=== PATIENT | female | born 1970 | race Caucasian/White ===

== ENCOUNTER 2016-03-19 12:20 | Observation (INO) | payer OTHER ==
[2016-03-19 13:11] LABS: Mean Cell Volume 89.2 fl (78-100); Mean Platelet Volume 9.7 fl (6-9.5); Platelet Count 415 K/mm3 (150-450); Red Blood Count 4.93 M/mm3 (4.1-5.4); White Blood Count 16.3 K/mm3 (4.0-10.5)
[2016-03-19] MEDS: DILAUDID 2 MG INJECTION IV PRN ×3 (13:23→23:34)
[2016-03-19] MEDS: Dextrose 5% -0.45 NaCl 1000 ML 1,000 ML IV SCH ×2 (13:23→23:22)
[2016-03-19] MEDS: Zofran 4 MG/2 ML VIAL IV PRN ×2 (13:26→21:29)
[2016-03-19] MEDS: PROTONIX 40 MG IV IV SCH (13:30)
[2016-03-19 13:59] LABS: ALBUMIN 3.7 g/dL (3.4-5.0); ALKALINE PHOSPHATASE 72 U/L (46-116); ANION GAP 13.4 MEQ/L (5-15); BILIRUBIN,TOTAL 0.2 mg/dL (0.2-1.0); BLOOD UREA NITROGEN 12 mg/dL (9-20); CHLORIDE 103 mEq/L (98-107); Carbon Dioxide 24.4 mEq/L (21-32); Glucose 125 MG/DL (70-110); Potassium 3.8 mEq/L (3.5-5.1); SGOT/AST 18 U/L (15-37); SGPT/ALT 31 U/L (12-78); SODIUM 137 mEq/L (136-145); Total Protein 7.6 gm/dL (6.4-8.2)
--- NOTE | 2016-03-19 14:14 | XRAY ---
Indication: Abdominal pain. Nausea. Multiple contiguous axial images obtained through the abdomen and pelvis without contrast as ordered. Comparison: April 08, 2015 Lung bases clear with minimal bibasilar dependent atelectasis. Heart is not enlarged. Noncontrasted stomach and bowel loops appear nonobstructed. Again previous reported appendectomy, cholecystectomy, and hysterectomy. Right kidney again appears small and scarred. No free fluid/air. Remaining liver, pancreas, spleen, adrenal glands, kidneys, ureters, and bladder appear unremarkable for noncontrast exam. There remains stable minimal aortoiliac calcifications without AAA. Osseous structures intact. Impression: Stable small/scarred right kidney. No new or acute intra-abdominal/pelvic abnormalities on this noncontrast exam. CTDI is 19.15
[2016-03-19 17:11] LABS: Bacteria MODERATE /HPF (NEGATIVE); COMPLETE URINE MICROSCOPIC? YES; Collection Type VOID; Epithelial Cells FEW /HPF (FEW); WBC 0-2 /HPF (0-5)
[2016-03-19] MEDS: KEPPRA 500 MG PO SCH (21:29)
[2016-03-20] MEDS: Zofran 4 MG/2 ML VIAL IV PRN ×3 (04:19→15:38)
[2016-03-20] MEDS: DILAUDID 2 MG INJECTION IV PRN ×4 (04:29→17:32)
[2016-03-20] MEDS: KEPPRA 500 MG PO SCH (09:19)
[2016-03-20] MEDS: Dextrose 5% -0.45 NaCl 1000 ML 1,000 ML IV SCH ×2 (09:25→17:36)
[2016-03-20] MEDS: KEFLEX 500 MG PO SCH ×2 (11:03→15:38)
[2016-03-20] MEDS: PROTONIX 40 MG IV IV SCH (12:48)
[2016-03-20 16:19] VITALS: BP 124/59; PULSE 58; O2SAT 97
--- NOTE | 2016-03-23 11:40 | SSS ---
DISCHARGE DIAGNOSES: 1) LOWER ABDOMINAL PAIN, NEARLY RESOLVED. 2) URINARY TRACT INFECTION. 3) HISTORY OF SEIZURE DISORDER. 4) CHRONIC PAIN SYNDROME. HOSPITAL COURSE: Dara Joyce is a 45 year-old woman with past medical history of seizure disorder, chronic pain syndrome and prior history of urinary tract infection. She was recently seen in the office for right flank pain and was diagnosed to have urinary tract infection. She underwent additional work up including kidney ultrasound which was negative. She was treated for urinary tract infection. She completed antibiotic as directed. Subsequently she was seen for follow up in the office on 03/19/2016 at which time she had complained of lower abdominal pain. There was no history of trauma or usual activity prior to onset of lower abdominal pain. Also there were no other precipitating factors. The pain was associated with nausea. She was admitted for further work up and management of the same. After admission she was placed on IV fluids, PRN analgesics and antiemetic. Lab work up on admission was notable for white blood cell count of 16.3. CMP was unremarkable except glucose of 125. Serum test was negative. UA did showed few epithelial cells, moderate bacteria, small red blood cells, negative white blood cell. She underwent CT scan of abdomen and pelvis which showed stable small scarred right kidney. No new or acute intra-abdominal or pelvic abnormalities on noncontrast exam. During her further course her abdominal pain improved. Her diet was advanced and she tolerated that well. The rest of her course was essentially more or less unremarkable. At the time of my evaluation this evening she was alert, awake, and comfortable. Her lower abdominal pain had significant improved, nearly resolved. She ambulated without difficulty. She overall felt better and was wishing to go home. PHYSICAL EXAMINATION: VITAL SIGNS: Blood pressure 124/59, heart rate 58, respiratory rate 18, temperature 97.9F. Oxygen saturation 97%. HEENT: Normocephalic. No pallor or icterus is noted. NECK: No JVD is present. CVS: S1, S2 present. RESPIRATORY: Breath sounds are bilaterally diminished and clear to auscultation. ABDOMEN: Soft, very minimal tenderness in lower abdominal area significantly improved from yesterday. NEURO: She is alert, oriented x3. EXTREMITIES: No edema on bilateral lower extremities. LABORATORY DATA AND TESTS: There were no new labs today. Medications were reviewed. ASSESSMENT: As outlined in discharge diagnoses. PLAN: The patient was admitted with severe abdominal pain was diagnosed to have urinary tract infection. The rest of the work up was essentially unremarkable except mildly elevated white blood cell count. She had remained afebrile, hemodynamically stable. Eventually her symptoms of abdominal pain had nearly resolved. She tolerated diet well. She was otherwise feeling well and wishing to go home. She was started on treatment with p.o. Keflex for urinary tract infection. She ambulated with stable oxygen saturations. She is overall feeling better and wishing to go home. She is being discharged in stable condition. Please refer to her discharge medication list from 03/20/2016 for details of medications list. Also she will be continued on home medications. Prescription for Keflex for six days was called into her pharmacy. She was advised to start that as directed. She was advised to drink ample p.o. fluid. She is to continue PRN Whitt per her pain management doctor. The patient does have an appointment scheduled with urologist as an outpatient in the next couple of weeks. She is advised to follow up with that. Also I have advised her to obtain CMP and CBC in the next four to five days in our office. She can follow up with us in ten days. Compliance with diet and medications is stressed. Complete cessation of smoking was stressed. The patient is advised to return to the Emergency Room [facility] if any new signs and symptoms or reappearance of previous signs and symptoms are noted. Please refer to the patient's chart, labs, diagnostic work up results and consult notes for details. Please refer to discharge medication list from 03/20/2016 for details of medications on discharge. The patient's clinical condition, work-up results and plan of management including discharge plan as noted above discussed with her. She seems to be in understanding and agreement. Discussed with patient's nurse.
== END 2016-03-20 19:15 | disposition home or self-care (01) ==
LOC: MED SURG 12:29
PROVIDERS: ADMIT General Practice; ATTEND General Practice
DX: R10.30 Lower abdominal pain, unspecified (principal); N39.0 Urinary tract infection, site not specified; G40.909 Epilepsy, unspecified, not intractable, without status epilepticus; G89.4 Chronic pain syndrome
CPT/HCPCS: 36415; 74176; 80053; 81000; 84703; 85027; G0378; J1170; J2405

== ENCOUNTER 2017-12-26 16:15 | Observation (INO) | payer OTHER ==
[2017-12-26] MEDS ORDERED: Zithromax 500 MG/ 250 ML NaCl Premix 500 MG/250 ML IVPB IV SCH (16:41)
[2017-12-26] MEDS ORDERED: PROVENTIL 2.5 MG/3 ML NEB IH PRN (16:59)
[2017-12-26] MEDS ORDERED: TYLENOL 325 MG PO PRN (17:06)
[2017-12-26] MEDS: ROCEPHIN 1 Gm-D5w 50 ml Bag** 1 G/50 ML IVPB IV SCH (17:08)
[2017-12-26] MEDS: Sodium Chloride 0.9% 1000 ML 1,000 ML IV SCH (17:08)
[2017-12-26] MEDS: Robitussin AC Syrup Unit Dose Cup PO PRN (17:08)
[2017-12-26 17:23] LABS: Hematocrit 46.9 % (35-47); Hemoglobin 16.3 gm/dl (12.0-16.0); Mean Cell Volume 87.7 fl (78-100); Mean Corpuscular Hgb Concent. 34.8 g/dl (32-36); Mean Platelet Volume 10.3 fl (6-9.5); Platelet Count 451 K/mm3 (150-450); Red Blood Count 5.35 M/mm3 (4.1-5.4); Red Cell Distribution Width 14.8 % (11.5-14.0); White Blood Count 13.1 K/mm3 (4.0-10.5)
[2017-12-26] MEDS: solu-MEDROL 40 MG IV SCH ×2 (17:28→23:06)
[2017-12-26] MEDS ORDERED: NEURONTIN 300 MG PO PRN (17:31)
[2017-12-26] MEDS ORDERED: MOTRIN 200 MG PO PRN (17:31)
[2017-12-26] MEDS ORDERED: Norco 10/325 MG Tablet PO PRN (17:31)
[2017-12-26 17:32] LABS: Mean Corpuscular Hemoglobin 30.4 pg (26-32)
[2017-12-26] MEDS ORDERED: Pepcid 20 MG PO PRN (17:36)
[2017-12-26 17:38] LABS: ANION GAP 13.4 MEQ/L (5-15); BLOOD UREA NITROGEN 13 mg/dL (7-17); CHLORIDE 103 mmol/L (98-107); Calcium 9.9 mg/dL (8.4-10.2); Carbon Dioxide 26 mmol/L (22-30); Creatinine 1 0.75 mg/dL (0.52-1.04); Glucose 99 mg/dL (74-106); Potassium 3.9 mmol/L (3.5-5.1); SODIUM 139 mmol/L (137-145)
[2017-12-26] MEDS ORDERED: Zofran 4 MG/2 ML VIAL IV PRN (18:28)
[2017-12-26 18:30] LABS: Lymphocytes 51 % (24-44); Monocyte 4 % (0.0-12.0); Neutrophils 45 % (36.0-66.0); Platelet Estimate NORMAL (NORMAL); Total Cells Counted 100
[2017-12-26 18:36] LABS: INFLUENZA A NEGATIVE (NEGATIVE); INFLUENZA B NEGATIVE (NEGATIVE); RESPIRATORY SYNCTIAL VIRUS NEGATIVE (Negative)
[2017-12-26] MEDS: DUONEB 0.5-3 MG/3 ml Neb IH SCH (19:26)
--- NOTE | 2017-12-26 20:16 | XRAY ---
Exam: Two-view chest from 12/26/2017. Comparison: AP portable chest film from 04/10/2015. Indication: 47-year-old female with shortness of breath and cough with congestion 10 days, becoming progressively worse. History of smoking. Findings: Upright PA and lateral chest films are submitted for evaluation. The heart size and contour are normal. The richard and mediastinal structures appear intact. The lungs are adequately expanded. No air space infiltrates, vascular congestion, pneumothorax, or pleural effusion is seen. No abnormal soft tissue lung nodularity is seen. The visualized bones appear unremarkable. Surgical clips are seen within the right upper quadrant consistent with prior cholecystectomy. Impression: 1. No air space infiltrates to suggest pneumonia or other acute cardiopulmonary disease is seen. The findings appear similar to 04/10/2015.
[2017-12-26] MEDS: KEPPRA 500 MG PO SCH (22:35)
[2017-12-27] MEDS: Robitussin AC Syrup Unit Dose Cup PO PRN ×2 (00:28→07:34)
[2017-12-27] MEDS ORDERED: TORAdol 30 mg Injection IV PRN (01:13)
[2017-12-27] MEDS: Sodium Chloride 0.9% 1000 ML 1,000 ML IV SCH (02:31)
[2017-12-27] MEDS: DUONEB 0.5-3 MG/3 ml Neb IH SCH ×2 (06:24→10:22)
[2017-12-27] MEDS: KEPPRA 500 MG PO SCH (10:10)
[2017-12-27] MEDS: ROCEPHIN 1 Gm-D5w 50 ml Bag** 1 G/50 ML IVPB IV SCH (10:10)
[2017-12-27] MEDS: solu-MEDROL 40 MG IV SCH (10:10)
--- NOTE | 2017-12-27 11:34 | PCM.SSS ---
History of Present Illness - Chief Complaint Chief Complaint: c/o cough and fever with chills History of Present Illness: is a 47 year old female. came to office with c/o fever, shortness of breath and cough for 2 days - Review of Systems Constitutional: No Fever, No Chills Eyes: No Symptoms Ears, Nose, & Throat: No Symptoms Respiratory: No Cough, No Short Of Breath Cardiac: No Chest Pain, No Edema, No Syncope Abdominal/Gastrointestinal: No Abdominal Pain, No Nausea, No Vomiting, No Diarrhea Genitourinary Symptoms: No Dysuria Musculoskeletal: No Back Pain, No Neck Pain Skin: No Rash Neurological: No Dizziness, No Focal Weakness, No Sensory Changes Psychological: No Symptoms Endocrine: No Symptoms Hematologic/Lymphatic: No Symptoms Immunological/Allergic: No Symptoms Medications & Allergies Home Medications: Home Medication List Levetiracetam [Keppra] 1 tab PO BID 01/30/14 [History Confirmed 12/26/17] Hydrocodone/APAP 10/325 mg [Min[place] 10/325 MG Tablet] 1 tab PO TIDPRN PRN [History Confirmed 12/26/17] Gabapentin 300 mg PO BID PRN PRN 12/26/17 [History Confirmed 12/26/17] Ibuprofen 200 mg [Motrin 200 mg] 200 mg PO Q6H PRN PRN 12/26/17 [History Confirmed 12/26/17] Ranitidine HCl [Zantac] 150 mg PO BID PRN PRN 12/26/17 [History Confirmed ] Cephalexin Mh 500 mg [Keflex 500 mg] 500 mg PO QID #20 capsule 12/27/17 [Rx] Codeine Phosphate/Guaifenesin [Cheratussin AC Syrup] 5 ml PO QID #150 liquid [Rx] Methylprednisolone Packet [Medrol Dosepack] 4 mg PO UD #30 packet [Rx] Allergies/Adverse Reactions: Allergies Allergy/AdvReac Type Severity Reaction Status Date / Time nitrofurantoin Allergy Hives Verified 12/26/17 17:04 [From Macrobid] Sulfa (Sulfonamide Allergy Hives Verified 12/26/17 16:55 Antibiotics) azithromycin [From Zithromax] AdvReac Intermediate Nausea and Verified 12/26/17 18:40 Vomiting naproxen [From Aleve] AdvReac Nausea Verified 12/26/17 17:04 - Past Medical History Past Medical History: Yes Neurological History: Epilepsy, Seizures ENT History: No Pertinent History Cardiac History: No Pertinent History Respiratory History: No Pertinent History Endocrine Medical History: No Pertinent History Musculoskelatal History: No Pertinent History GI Medical History: Gallbladder Disease, Other History: Other Pyscho-Social History: No Pertinent History Reproductive Disorders: Endometriosis 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 RT KIDNEY DYSFUNCTION. H. Pylori - Female History Are you now?: No - Past Surgical History Past Surgical History: Yes Neuro Surgical History: No Pertinent History Cardiac History: No Pertinent History Respiratory Surgery: No Pertinent History GI Surgical History: Appendectomy, Cholecystectomy Female Surgical History: Hysterectomy Other Surgical History: CRANIOTOMY--TUMOR REMOVED. - Social History Smoking Status: Current every day smoker How long have you smoked: 20 Exposure to second hand smoke: No Alcohol: None Drug Use: none - Physical Exam Vital Signs: Vital Signs - 24 hr Temp Pulse Resp BP BP Pulse Ox 12/27/17 10:24 84 20 12/27/17 08:00 18 12/27/17 07:19 98.2 F 77 18 112/56 96 12/27/17 06:27 80 18 96 12/27/17 04:00 97.8 F 90 18 114/59 96 12/27/17 00:00 97.8 F 80 16 96/55 95 12/26/17 23:44 16 12/26/17 22:24 77 18 97 12/26/17 20:00 20 12/26/17 19:35 98 F 76 18 124/57 95 12/26/17 19:29 83 20 97 12/26/17 17:40 94 L 12/26/17 17:21 98.6 F 84 18 135/70 97 12/26/17 16:50 98.6 F 84 18 135/70 General Appearance: no apparent distress, alert Neurologic Exam: alert, oriented x 3, cooperative, normal mood/affect, nml cerebellar function, nml station & gait, sensation nml, No motor deficits Eye Exam: PERRL/EOMI, eyes nml inspection Ears, Nose, Throat Exam: normal ENT inspection, TMs normal, pharynx normal, moist mucous membranes Neck Exam: normal inspection, non-tender, supple, full range of motion Respiratory Exam: diminished breath sounds, wheezing, No respiratory distress Cardiovascular Exam: regular rate/rhythm, normal heart sounds, normal peripheral pulses Gastrointestinal/Abdomen Exam: soft, normal bowel sounds, No tenderness, No mass Back Exam: normal inspection, normal range of motion, No CVA tenderness, No vertebral tenderness Extremity Exam: normal inspection, normal range of motion, pelvis stable Skin Exam: normal color, warm, dry, No rash Lymphatic Exam: No adenopathy Results - Labs Lab/Micro Results: Lab Results-Last 24 Hours 12/26/17 12/26/17 12/26/17 Range/Units 17:16 17:16 17:16 WBC 13.1 H (4.0-10.5) K/mm3 RBC 5.35 (4.1-5.4) M/mm3 Hgb 16.3 H (12.0-16.0) gm/dl Hct 46.9 (35-47) % MCV 87.7 (78-100) fl MCH 30.4 (26-32) pg MCHC 34.8 (32-36) g/dl RDW 14.8 H (11.5-14.0) % Plt Count 451 H (150-450) K/mm3 MPV 10.3 H (6-9.5) fl Absolute Granulocytes 7.20 H (1.4-6.9) Segmented Neutrophils 45 (36.0-66.0) % Lymphocytes (Manual) 51 H (24-44) % Monocytes (Manual) 4 (0.0-12.0) % Platelet Estimate NORMAL (NORMAL) RBC Morphology NORMAL Sodium 139 (137-145) mmol/L Potassium 3.9 (3.5-5.1) mmol/L Chloride 103 (98-107) mmol/L Carbon Dioxide 26 (22-30) mmol/L Anion Gap 13.4 (5-15) MEQ/L BUN 13 (7-17) mg/dL Creatinine 0.75 (0.52-1.04) mg/dL Estimated GFR > 60.0 ML/MIN Glucose 99 (74-106) mg/dL Calcium 9.9 (8.4-10.2) mg/dL Influenza Type A Ag NEGATIVE (NEGATIVE) Influenza Type B Ag NEGATIVE (NEGATIVE) RSV (PCR) NEGATIVE (Negative) - Radiology Impressions Radiology Exams & Impressions: Radiology Procedures Category Date Time Status CHEST 2 VIEWS (PA AND LAT) Stat Exams 12/26/17 16:38 Completed - Other Procedures and Tests Respiratory Therapy 12/26/17 16:59 Peak Expiratory Flow Rate ONCE Respiratory Therapy Assessment DAILY Assessment/Plan (1) Bronchitis, acute Current Visit: Yes Status: Acute Qualifiers: Bronchitis organism: rhinovirus Qualified Code(s): J20.6 - Acute bronchitis due to rhinovirus Code(s): J20.9 - ACUTE BRONCHITIS, UNSPECIFIED Hospital Summary - Hospital Course Hospital Course: Last Vital Signs Temp 98.2 F 12/27/17 07:19 Pulse 84 12/27/17 10:24 Resp 20 12/27/17 10:24 BP 112/56 12/27/17 07:19 Pulse Ox 96 12/27/17 07:19 Allergies nitrofurantoin [From Macrobid] Allergy (Verified 12/26/17 17:04) Hives Sulfa (Sulfonamide Antibiotics) Allergy (Verified 12/26/17 16:55) Hives shortness of breath ,diaphoretic azithromycin [From Zithromax] Adverse Reaction (Intermediate, Verified 12/26/17 18:40) Nausea and Vomiting naproxen [From Aleve] Adverse Reaction (Verified 12/26/17 17:04) Nausea Active Medications Acetaminophen (Tylenol 325 Mg) 650 mg PO Q4H PRN PRN PRN Reason: PAIN AND/OR FEVER Stop: 01/25/18 17:05 Last Admin: 12/26/17 17:34 Dose: 650 mg Hydrocodone Bitart/Acetaminophen ([place] 10/325 Mg Tablet) 1 tab PO TIDPRN PRN PRN Reason: PAIN Stop: 12/31/17 17:30 Last Admin: 12/26/17 20:04 Dose: 1 tab Albuterol Sulfate (Proventil 2.5 Mg/3 Ml Neb) 2.5 mg IH Q2H PRN PRN PRN Reason: SHORTNESS OF BREATH/WHEEZING Stop: 01/25/18 16:58 Last Admin: 12/26/17 22:24 Dose: 2.5 mg Albuterol/Ipratropium (Duoneb 0.5-3 Mg/3 Ml Neb) 3 ml IH QIDRT PENDING SALE TO [facility] Stop: 01/25/18 18:59 Last Admin: 12/27/17 10:22 Dose: 3 ml Famotidine (Pepcid 20 Mg) 20 mg PO BID PRN PRN Stop: 01/25/18 17:35 Last Admin: 12/27/17 04:40 Dose: 20 mg Gabapentin (Neurontin 300 Mg) 300 mg PO BID PRN PRN PRN Reason: PAIN Stop: 01/25/18 17:30 Guaifenesin/Codeine Phosphate (Robitussin Ac Syrup Unit Dose Cup) 5 ml PO Q4H PRN PRN PRN Reason: COUGH Stop: 01/25/18 16:41 Last Admin: 12/27/17 07:34 Dose: 5 ml Ceftriaxone Sodium/Dextrose (Rocephin 1 Gm-D5w 50 Ml Bag) 1 g in 50 mls @ 100 mls/hr IV Q24H10 PENDING SALE TO [facility] Stop: 01/25/18 16:40 Last Admin: 12/27/17 10:10 Dose: 100 mls/hr Sodium Chloride (Sodium Chloride 0.9% 1000 Ml) 1,000 mls @ 100 mls/hr IV .Q10H PENDING SALE TO [facility] Stop: 01/25/18 16:44 Last Admin: 12/27/17 02:31 Dose: 100 mls/hr Ketorolac Tromethamine (Toradol 30 Mg Injection) 60 mg IV Q8H PRN PRN PRN Reason: HEADACHE Stop: 01/01/18 01:12 Last Admin: 12/27/17 01:20 Dose: 60 mg Levetiracetam (Keppra 500 Mg ) 500 mg PO BID PENDING SALE TO [facility] Stop: 01/25/18 21:59 Last Admin: 12/27/17 10:10 Dose: 500 mg Methylprednisolone Sodium Succinate (Solu-Medrol 40 Mg) 40 mg IV BID PENDING SALE TO [facility] Stop: 01/25/18 16:44 Last Admin: 12/27/17 10:10 Dose: 40 mg Ondansetron HCl (Zofran 4 Mg/2 Ml Vial) 4 mg IV Q4H PRN PRN PRN Reason: NAUSEA/VOMITING Stop: 01/25/18 18:27 Last Admin: 12/26/17 18:32 Dose: 4 mg Intake & Output 12/26/17 12/27/17 11:59 11:59 Intake Total 2350 Output Total 800 Balance 1550 Weight 72.4 kg Orders 12/26/17 16:37 Bedrest with BRP/BSC ROUTINE Code Status Order ROUTINE Place in Observation ROUTINE Vital Signs Q4H 12/26/17 16:38 IV Insertion ROUTINE Implement Pneumonia Pathway ROUTINE 12/26/17 16:41 Ceftriaxone 1 GM/50 ML PREMIX* [ROCEPHIN 1 Gm-D5w 50 ml Bag] 1 g in 50 ml IV Q24H10 12/26/17 16:42 Guaifenesin/Codeine 5 ml [Robitussin AC Syrup Unit Dose Cup] 5 ml PO Q4H PRN PRN 12/26/17 16:45 Methylprednisolone Sod Suc 40M [solu-MEDROL 40 MG] 40 mg IV BID NaCl 0.9% 1000 ml [Sodium Chloride 0.9% 1000 ML] 1,000 ml IV 100 mls/hr 12/26/17 16:59 Albuterol 2.5 mg/3 ml Neb [Proventil 2.5 mg/3 ml Neb] 2.5 mg IH Q2H PRN PRN Peak Expiratory Flow Rate ONCE Pulse Oximetry .spot check Respiratory Therapy Assessment DAILY 12/26/17 17:06 Acetaminophen 325 mg [Tylenol 325 mg] 650 mg PO Q4H PRN PRN 12/26/17 17:16 BLOOD CULTURE Stat 12/26/17 17:31 Gabapentin 300 mg [Neurontin 300 mg] 300 mg PO BID PRN PRN Hydrocodone/APAP 10/325 mg [Min[place] 10/325 MG Tablet] 1 tab PO TIDPRN PRN 12/26/17 17:36 Famotidine 20 mg [Pepcid 20 MG] 20 mg PO BID PRN PRN 12/26/17 18:28 Ondansetron HCl 4 mg/2 ml [Zofran 4 MG/2 ML VIAL] 4 mg IV Q4H PRN PRN 12/26/17 19:00 Albuterol/Ipratropium 3ml Neb* [DUONEB 0.5-3 MG/3 ml Neb] 3 ml IH QIDRT 12/26/17 22:00 Levetiracetam [Keppra 500 mg ] 500 mg PO BID 12/26/17 Dinner Regular Diet 12/27/17 01:13 KETOROLAC trometh 30 mg Inj [TORAdol 30 mg Injection] 60 mg IV Q8H PRN PRN Lab Tests 12/26/17 12/26/17 12/26/17 17:16 17:16 17:16 WBC 13.1 H RBC 5.35 Hgb 16.3 H Hct 46.9 MCV 87.7 MCH 30.4 MCHC 34.8 RDW 14.8 H Plt Count 451 H MPV 10.3 H Absolute Granulocytes 7.20 H Segmented Neutrophils 45 Lymphocytes (Manual) 51 H Monocytes (Manual) 4 Platelet Estimate NORMAL RBC Morphology NORMAL Sodium 139 Potassium 3.9 Chloride 103 Carbon Dioxide 26 Anion Gap 13.4 BUN 13 Creatinine 0.75 Estimated GFR > 60.0 Glucose 99 Calcium 9.9 Influenza Type A Ag NEGATIVE Influenza Type B Ag NEGATIVE RSV (PCR) NEGATIVE - Vitals & Intake/Output Vital Signs: Vital Signs Temperature 98.2 F 12/27/17 07:19 Pulse Rate 84 12/27/17 10:24 Respiratory Rate 20 12/27/17 10:24 Blood Pressure 112/56 12/27/17 07:19 O2 Sat by Pulse Oximetry 96 12/27/17 07:19 Intake & Output: Intake & Output 12/24/17 12/25/17 12/26/17 12/27/17 11:59 11:59 11:59 11:59 Intake Total 2350 Output Total 800 Balance 1550 Weight 72.4 kg - Lab Result Diagrams: 12/26/17 17:16 12/26/17 17:16 Lab Results-Last 24 Hrs: Lab Results-Last 24 Hours 12/26/17 12/26/17 12/26/17 Range/Units 17:16 17:16 17:16 WBC 13.1 H (4.0-10.5) K/mm3 RBC 5.35 (4.1-5.4) M/mm3 Hgb 16.3 H (12.0-16.0) gm/dl Hct 46.9 (35-47) % MCV 87.7 (78-100) fl MCH 30.4 (26-32) pg MCHC 34.8 (32-36) g/dl RDW 14.8 H (11.5-14.0) % Plt Count 451 H (150-450) K/mm3 MPV 10.3 H (6-9.5) fl Absolute Granulocytes 7.20 H (1.4-6.9) Segmented Neutrophils 45 (36.0-66.0) % Lymphocytes (Manual) 51 H (24-44) % Monocytes (Manual) 4 (0.0-12.0) % Platelet Estimate NORMAL (NORMAL) RBC Morphology NORMAL Sodium 139 (137-145) mmol/L Potassium 3.9 (3.5-5.1) mmol/L Chloride 103 (98-107) mmol/L Carbon Dioxide 26 (22-30) mmol/L Anion Gap 13.4 (5-15) MEQ/L BUN 13 (7-17) mg/dL Creatinine 0.75 (0.52-1.04) mg/dL Estimated GFR > 60.0 ML/MIN Glucose 99 (74-106) mg/dL Calcium 9.9 (8.4-10.2) mg/dL Influenza Type A Ag NEGATIVE (NEGATIVE) Influenza Type B Ag NEGATIVE (NEGATIVE) RSV (PCR) NEGATIVE (Negative) - Radiology Exams Ordered Rad Exams-Entire Visit: Radiology Procedures Category Date Time Status CHEST 2 VIEWS (PA AND LAT) Stat Exams 12/26/17 16:38 Completed - Procedures and Test Procedures and Tests throughout Hospitalization: Therapy Orders & Screens 12/26/17 16:38 Respiratory Therapy Consult ROUTINE Comment: Reason For Exam: Diagnosis: Pneumonia 12/26/17 16:59 Peak Expiratory Flow Rate ONCE Comment: Reason For Exam: Diagnosis: Pneumonia Respiratory Therapy Assessment DAILY Comment: Diagnosis: Pneumonia 12/26/17 17:00 Respiratory Nebulizer UD Comment: DUONEB QID, ALBUTEROL Q2PRN Diagnosis: Pneumonia 12/26/17 17:36 Smoking Cessation Education ONCE Comment: Diagnosis: pneumonia Smoking Status: Current every day smoker How long have you smoked: 20 Have you smoked in the past 12 months: Yes Approximately how many cigarettes per day: 1/2 a pack a day. Do you dip or chew tobacco: No - Discharge Discharge Date: 12/27/17 Disposition: Home, Self-Care Condition: Stable Prescriptions: New Codeine Phosphate/Guaifenesin [Cheratussin AC Syrup] 5 ml PO QID #150 liquid Cephalexin Mh 500 mg [Keflex 500 mg] 500 mg PO QID #20 capsule Methylprednisolone Packet [Medrol Dosepack] 4 mg PO UD #30 packet Continue Levetiracetam [Keppra] 1 tab PO BID Hydrocodone/APAP 10/325 mg [[place] 10/325 MG Tablet] 1 tab PO TIDPRN PRN PRN Reason: Pain Ibuprofen 200 mg [Motrin 200 mg] 200 mg PO Q6H PRN PRN PRN Reason: Pain Ranitidine HCl [Zantac] 150 mg PO BID PRN PRN PRN Reason: Indigestion Gabapentin 300 mg PO BID PRN PRN PRN Reason: Pain Follow up with: PILY SWAN MD [Primary Care Provider] - 01/02/18 2:30 pm ([facility])
[2017-12-27 11:42] VITALS: BP 136/63; PULSE 72; O2SAT 97
== END 2017-12-27 12:30 | disposition home or self-care (01) ==
LOC: MED SURG 16:31
PROVIDERS: ADMIT General Practice; ATTEND General Practice
DX: J20.9 Acute bronchitis, unspecified (principal); J16.8 Pneumonia due to other specified infectious organisms
CPT/HCPCS: 36415; 71046; 80048; 85025; 87040; 87631; 94150; 94640; 94760; G0378; J7609; J0456; J0696; J1885; J2405; J2920; A9270-GY

== ENCOUNTER 2020-01-30 12:34 | Emergency (ER) | payer OTHER ==
--- NOTE | 2020-01-30 12:42 | ERPHSYRPT ---
- History of Present Illness Time Seen by Provider: 01/30/20 12:50 Historian: patient Exam Limitations: no limitations Physician History: This is a 49-year-old white female who is obese and has a history of renal issues that are undefined at this time. Patient complains of 2 to 3-day history of initially left flank pain that goes to the left lower lung base posteriorly. She has not had any shortness of breath or coughing symptoms. She is not febrile. She has some mild bilateral abdominal pain. Today, she has bilateral flank pain that is worsened. On 01/28/2020 patient saw her primary care physician and they initially called in azithromycin. However she had a rash to this medication and they changed it today to Cipro 500 mg. She has not filled that yet. Patient generally is not feeling well and her symptoms are worse and therefore she presents to the emergency department for evaluation and management. Timing/Duration: day(s) (2-3) Quality: burning, sharpness Location: other (Bilateral lower. Pain radiates to the chest from her bilateral kidneys.) Severity of Pain-Max: moderate Severity of Pain-Current: moderate Modifying Factors: Improves With: movement (Worsens) Associated Symptoms: abdominal pain (Mild bilateral lower quadrant.) Prior Chest Pain/Cardiac Workup: no prior chest pain Nitro Today/Relief: no nitro taken today Aspirin Treatment Today: no aspirin today Allergies/Adverse Reactions: nitrofurantoin [From Macrobid] Allergy (Verified 12/26/17 17:04) Hives Sulfa (Sulfonamide Antibiotics) Allergy (Verified 12/26/17 16:55) Hives shortness of breath ,diaphoretic azithromycin [From Zithromax] Adverse Reaction (Intermediate, Verified 12/26/17 18:40) Nausea and Vomiting naproxen [From Aleve] Adverse Reaction (Verified 12/26/17 17:04) Nausea Home Medications: Levetiracetam [Keppra] 1 tab PO BID 01/30/14 [History] Hydrocodone/APAP 10/325 mg [[place] 10/325 MG Tablet] 1 tab PO TIDPRN PRN 04/10/15 [History] Gabapentin 300 mg PO BID PRN PRN 12/26/17 [History] Ibuprofen 200 mg [Motrin 200 mg] 200 mg PO Q6H PRN PRN 12/26/17 [History] raNITIdine HCl [Zantac] 150 mg PO BID PRN PRN 12/26/17 [History] Losartan Potassium [Cozaar] 25 mg PO DAILY 01/30/20 [History] Hx Tetanus, Diphtheria Vaccination/Date Given: Yes Hx Influenza Vaccination/Date Given: No Hx Pneumococcal Vaccination/Date Given: No Travel Risk - International Travel Have you traveled outside of the country in past 3 weeks: No - Coronavirus Screening Are you exhibiting any of the following symptoms?: No Close contact with a COVID-19 positive Pt in past 14-21 Days: No - Review of Systems Constitutional: No Symptoms Eyes: No Symptoms Ears, Nose, & Throat: No Symptoms Respiratory: No Symptoms Cardiac: Chest Pain (Referred pain to the chest from her bilateral flanks) Abdominal/Gastrointestinal: Abdominal Pain (Mild bilateral lower quadrants) Genitourinary Symptoms: Flank Pain (Bilateral) Musculoskeletal: No Symptoms Skin: No Symptoms Neurological: No Symptoms Psychological: No Symptoms Endocrine: No Symptoms Hematologic/Lymphatic: No Symptoms Immunological/Allergic: No Symptoms All Other Systems: Reviewed and Negative - Past Medical History Pertinent Past Medical History: Yes Neurological History: Epilepsy, Migraines, Other ENT History: No Pertinent History Cardiac History: Other Respiratory History: No Pertinent History Endocrine Medical History: Other Musculoskeletal History: Osteoarthritis, Other GI Medical History: Gallbladder Disease, Other History: Other Psycho-Social History: No Pertinent History Female Reproductive Disorders: Endometriosis Other Medical History: Pituitary tumor, benign brain tumor (current), craniotomy for tumor on the brain (2006), hysterectomy, appendectomy, cholecystectomy, R hip nerve release (05/2016, Dr. Ricci), Lumbar Scoliosis, C5-6 Cervial disc Degeneration per 08/31/19 X-Ray, Lumbar Intervertebral disc degeneration, R hip trochanteric bursitis, Chronic Pain Syndrome, L humerus shaft fracture, Lumbar Lordosis (08/31/19 X-Ray), Meralgia paresthetica RLE, Cervicalagia, Iliotibial band syndrome, Hyperprolactinemia - Past Surgical History Past Surgical History: Yes Neuro Surgical History: No Pertinent History Cardiac: No Pertinent History Respiratory: No Pertinent History Gastrointestinal: Appendectomy, Cholecystectomy Female Surgical History: Hysterectomy Other Surgical History: CRANIOTOMY--TUMOR REMOVED. - Social History Smoking Status: Current every day smoker How long have you smoked: 20 Exposure to second hand smoke: No Drug Use: none Patient Lives Alone: No - Nursing Vital Signs Nursing Vital Signs: Initial Vital Signs Temperature 98.4 F 01/30/20 12:40 Pulse Rate 100 H 01/30/20 12:40 Respiratory Rate 24 01/30/20 12:40 Blood Pressure 134/98 01/30/20 12:40 O2 Sat by Pulse Oximetry 100 01/30/20 12:40 Pain Scale Pain Intensity 8 - Physical Exam General Appearance: mild distress, alert, anxiety, obese Eye Exam: PERRL/EOMI, eyes nml inspection Ears, Nose, Throat Exam: normal ENT inspection, moist mucous membranes Neck Exam: normal inspection, non-tender, supple, full range of motion Respiratory Exam: normal breath sounds, chest tenderness, lungs clear, airway intact, No respiratory distress Cardiovascular Exam: regular rate/rhythm, normal heart sounds, normal peripheral pulses Gastrointestinal/Abdomen Exam: soft, normal bowel sounds, tenderness (Mild bilateral lower quadrants.), guarding, No rebound Pelvic Exam: not done Rectal Exam: not done Back Exam: CVA tenderness (Bilateral), No vertebral tenderness Extremity Exam: normal inspection, normal range of motion, pelvis stable Neurologic Exam: alert, oriented x 3, cooperative, 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 No changes from comparison EKG dated 04/10/2015) Ordered Tests: Active Orders 24 hr Category Date Time Status EKG-ER Only STAT Care 01/30/20 12:53 Active IV Insertion STAT Care 01/30/20 12:53 Active ABDOMEN AND PELVIS W/0 CONTRAS [CT] Stat Exams 01/30/20 12:54 Completed CHEST 1 VIEW (PORTABLE) Stat Exams 01/30/20 12:53 Completed AMYLASE Stat Lab 01/30/20 12:55 Completed CBC W DIFF Stat Lab 01/30/20 12:55 Completed CMP Stat Lab 01/30/20 12:55 Completed CULTURE,URINE Stat Lab 01/30/20 12:50 Received LIPASE Stat Lab 01/30/20 12:55 Completed Lactic Acid Stat Lab 01/30/20 12:53 Completed TROPONIN Q3H Lab 01/30/20 12:55 Completed TROPONIN Q3H Lab 01/30/20 16:00 Ordered TROPONIN Q3H Lab 01/30/20 19:00 Ordered TROPONIN Q3H Lab 01/30/20 22:00 Ordered TROPONIN Q3H Lab 01/31/20 01:00 Ordered UA W/RFX UR CULTURE Stat Lab 01/30/20 12:50 Completed Medication Summary Discontinued Medications Generic Name Dose Route Start Last Admin Trade Name Freq PRN Reason Stop Dose Admin Sodium Chloride 500 mls @ 500 mls/hr 01/30/20 12:54 01/30/20 12:59 Sodium Chloride 0.9% 500 Ml IV 01/30/20 13:53 500 mls/hr .Q1H ONE Administration Sodium Chloride Confirm 01/30/20 12:57 Sodium Chloride 0.9% 500 Ml Administered 01/30/20 12:58 Dose 500 mls @ ud IV .STK-MED ONE Morphine Sulfate 4 mg 01/30/20 12:57 01/30/20 12:58 Morphine Sulfate 4 Mg Inj IV 01/30/20 12:58 4 mg STAT ONE Administration Morphine Sulfate Confirm 01/30/20 12:57 Morphine Sulfate 4 Mg Inj Administered 01/30/20 12:58 Dose 4 mg .ROUTE .STK-MED ONE Ondansetron HCl 4 mg 01/30/20 12:57 01/30/20 12:58 Zofran 4 Mg/2 Ml Vial IV 01/30/20 12:58 4 mg STAT ONE Administration Ondansetron HCl Confirm 01/30/20 12:57 Zofran 4 Mg/2 Ml Vial Administered 01/30/20 12:58 Dose 4 mg .ROUTE .STK-MED ONE Lab/Rad Data: Laboratory Result Diagrams 01/30/20 12:55 01/30/20 12:55 Laboratory Results 01/30/20 01/30/20 01/30/20 Range/Units 12:55 12:55 12:55 WBC 13.3 H (4.0-10.5) K/mm3 RBC 5.23 (4.1-5.4) M/mm3 Hgb 16.2 H (12.0-16.0) gm/dl Hct 45.9 (35-47) % MCV 87.8 (78-100) fl MCH 31.0 (26-32) pg MCHC 35.3 (32-36) g/dl RDW 14.9 H (11.5-14.0) % Plt Count 415 (150-450) K/mm3 MPV 10.4 (7.5-11.0) fl Gran % 71.8 H (36.0-66.0) % Eos # (Auto) 0.19 (0-0.5) Absolute Lymphs (auto) 2.85 (1.0-4.6) Absolute Monos (auto) 0.65 (0.0-1.3) Lymphocytes % 21.4 L (24.0-44.0) % Monocytes % 4.9 (0.0-12.0) % Eosinophils % 1.4 (0.00-5.0) % Basophils % 0.5 (0.0-0.4) % Absolute Granulocytes 9.55 H (1.4-6.9) Basophils # 0.06 (0-0.4) Sodium 136 L (137-145) mmol/L Potassium 4.0 (3.5-5.1) mmol/L Chloride 107 (98-107) mmol/L Carbon Dioxide 22 (22-30) mmol/L Anion Gap 11.7 (5-15) MEQ/L BUN 13 (7-17) mg/dL Creatinine 0.67 (0.52-1.04) mg/dL Estimated GFR > 60.0 ML/MIN Glucose 120 H (74-106) mg/dL Lactic Acid (0.4-2.0) Calcium 10.0 (8.4-10.2) mg/dL Total Bilirubin 0.50 (0.2-1.3) mg/dL AST 30 (14-36) U/L ALT 26 (0-35) U/L Alkaline Phosphatase 80 (38-126) U/L Troponin I < 0.012 (0.000-0.034) ng/mL Serum Total Protein 8.1 (6.3-8.2) g/dL Albumin 4.5 (3.5-5.0) g/dL Amylase 58 (30-110) U/L Lipase 19 L (23-300) U/L Urine Color (YELLOW) Urine Appearance (CLEAR) Urine pH (5-6) Ur Specific [place] (1.005-1.025) Urine Protein (Negative) Urine Ketones (NEGATIVE) Urine Blood (0-5) Angel/ul Urine Nitrite (NEGATIVE) Urine Bilirubin (NEGATIVE) Urine Urobilinogen (0-1) mg/dL Ur Leukocyte Esterase (NEGATIVE) Urine WBC (Auto) (0-5) /HPF Urine RBC (Auto) (0-2) /HPF U Epithel Cells (Auto) (FEW) /HPF Urine Bacteria (Auto) (NEGATIVE) /HPF Urine Mucus (Auto) (NEGATIVE) /HPF Urine Culture Reflexed (NO) Urine Glucose (NEGATIVE) mg/dL 01/30/20 01/30/20 Range/Units 12:53 12:50 WBC (4.0-10.5) K/mm3 RBC (4.1-5.4) M/mm3 Hgb (12.0-16.0) gm/dl Hct (35-47) % MCV (78-100) fl MCH (26-32) pg MCHC (32-36) g/dl RDW (11.5-14.0) % Plt Count (150-450) K/mm3 MPV (7.5-11.0) fl Gran % (36.0-66.0) % Eos # (Auto) (0-0.5) Absolute Lymphs (auto) (1.0-4.6) Absolute Monos (auto) (0.0-1.3) Lymphocytes % (24.0-44.0) % Monocytes % (0.0-12.0) % Eosinophils % (0.00-5.0) % Basophils % (0.0-0.4) % Absolute Granulocytes (1.4-6.9) Basophils # (0-0.4) Sodium (137-145) mmol/L Potassium (3.5-5.1) mmol/L Chloride (98-107) mmol/L Carbon Dioxide (22-30) mmol/L Anion Gap (5-15) MEQ/L BUN (7-17) mg/dL Creatinine (0.52-1.04) mg/dL Estimated GFR ML/MIN Glucose (74-106) mg/dL Lactic Acid 1.1 (0.4-2.0) Calcium (8.4-10.2) mg/dL Total Bilirubin (0.2-1.3) mg/dL AST (14-36) U/L ALT (0-35) U/L Alkaline Phosphatase (38-126) U/L Troponin I (0.000-0.034) ng/mL Serum Total Protein (6.3-8.2) g/dL Albumin (3.5-5.0) g/dL Amylase (30-110) U/L Lipase (23-300) U/L Urine Color YELLOW (YELLOW) Urine Appearance SLIGHTLY CLOUDY (CLEAR) Urine pH 6.0 (5-6) Ur Specific [place] 1.012 (1.005-1.025) Urine Protein NEGATIVE (Negative) Urine Ketones NEGATIVE (NEGATIVE) Urine Blood MODERATE (0-5) Angel/ul Urine Nitrite NEGATIVE (NEGATIVE) Urine Bilirubin NEGATIVE (NEGATIVE) Urine Urobilinogen NEGATIVE (0-1) mg/dL Ur Leukocyte Esterase NEGATIVE (NEGATIVE) Urine WBC (Auto) 3-5 (0-5) /HPF Urine RBC (Auto) 0-2 (0-2) /HPF U Epithel Cells (Auto) RARE (FEW) /HPF Urine Bacteria (Auto) MODERATE (NEGATIVE) /HPF Urine Mucus (Auto) SLIGHT (NEGATIVE) /HPF Urine Culture Reflexed YES (NO) Urine Glucose NEGATIVE (NEGATIVE) mg/dL - Progress Progress: improved Air Movement: good Progress Note: 01/30/20 14:02 CAT scan of the abdomen and pelvis shows 3 new right ovarian cyst. There is also a new subcentimeter hepatic cyst versus hemangioma present. The remainder of the CT scan of the abdomen pelvis without contrast is negative. The chest x-ray shows no acute cardiopulmonary process. Blood Culture(s) Obtained: Yes Antibiotics given: No Counseled pt/family regarding: lab results, diagnosis, need for follow-up, rad results - Departure Departure Disposition: Home Clinical Impression: Bilateral flank pain, Abdominal pain, bilateral lower quadrant Condition: Stable Critical Care Time: No Referrals: PILY SWAN MD [Primary Care Provider] - Additional Instructions: Fill your antibiotic prescription as prescribed. Follow-up with your primary care physician for further instructions and management as well as pain control.
[2020-01-30] MEDS ORDERED: Sodium Chloride 0.9% 500 ML 500 ML IV ONE ×2 (12:54→12:57)
[2020-01-30] MEDS ORDERED: MORPHINE SULFATE 4 MG INJ IV ONE (12:57)
[2020-01-30] MEDS ORDERED: Zofran 4 MG/2 ML VIAL ONE (12:57)
[2020-01-30] MEDS ORDERED: MORPHINE SULFATE 4 MG INJ ONE (12:57)
[2020-01-30] MEDS ORDERED: Zofran 4 MG/2 ML VIAL IV ONE (12:57)
[2020-01-30 13:05] LABS: Appearance SLIGHTLY CLOUDY (CLEAR); Bacteria MODERATE /HPF (NEGATIVE); Bilirubin NEGATIVE (NEGATIVE); Blood MODERATE Ery/ul (0-5); Epithelial Cells RARE /HPF (FEW); Glucose NEGATIVE (NEGATIVE); Ketones NEGATIVE (NEGATIVE); Leukocyte Esterase NEGATIVE (NEGATIVE); Mucus SLIGHT /HPF (NEGATIVE); Nitrite NEGATIVE (NEGATIVE); Protein,Urine Dip NEGATIVE (Negative); RBC 0-2 /HPF (0-2); Specific Gravity 1.012 (1.005-1.025); Urobilinogen NEGATIVE mg/dL (0-1)
[2020-01-30 13:16] LABS: Absolute Neutrophil Ct (ANC) 9.55 (1.4-6.9); BASOPHIL % 0.5 % (0.0-0.4); Basophil (Absolute #) 0.06 (0-0.4); Eosinophil % 1.4 % (0.00-5.0); Eosinophil (Absolute #) 0.19 (0-0.5); Hematocrit 45.9 % (35-47); Hemoglobin 16.2 gm/dl (12.0-16.0); Lymphocyte (Absolute #) 2.85 (1.0-4.6); Lymphocytes % 21.4 % (24.0-44.0); Mean Cell Volume 87.8 fl (78-100); Mean Corpuscular Hgb Concent. 35.3 g/dl (32-36); Mean Platelet Volume 10.4 fl (7.5-11.0); Monocyte (Absolute #) 0.65 (0.0-1.3); Monocytes % 4.9 % (0.0-12.0); Neutrophil % 71.8 % (36.0-66.0); Platelet Count 415 K/mm3 (150-450); Red Blood Count 5.23 M/mm3 (4.1-5.4); Red Cell Distribution Width 14.9 % (11.5-14.0); White Blood Count 13.3 K/mm3 (4.0-10.5)
[2020-01-30 13:27] LABS: ALBUMIN 4.5 g/dL (3.5-5.0); ALKALINE PHOSPHATASE 80 U/L (38-126); AMYLASE 58 U/L (30-110); ANION GAP 11.7 MEQ/L (5-15); BLOOD UREA NITROGEN 13 mg/dL (7-17); CHLORIDE 107 mmol/L (98-107); Carbon Dioxide 22 mmol/L (22-30); Creatinine 1 0.67 mg/dL (0.52-1.04); EST GLOMERULAR FILTRATION RATE > 60.0 ML/MIN; Glucose 120 mg/dL (74-106); LIPASE 19 U/L (23-300); SGOT/AST 30 U/L (14-36); SGPT/ALT 26 U/L (0-35); SODIUM 136 mmol/L (137-145); Total Protein 8.1 g/dL (6.3-8.2)
--- NOTE | 2020-01-30 13:36 | XRAY ---
Indication: Chest pain. Comparison: December 26, 2017. Portable chest again demonstrates normal heart, lungs, and bony thorax.
--- NOTE | 2020-01-30 13:41 | XRAY ---
Indication: Bilateral flank pain. Multiple contiguous axial images obtained through the abdomen and pelvis without contrast as ordered. Comparison: March 19, 2016. Lung bases again demonstrates minimal dependent atelectasis. No infiltrate or effusion. Heart is not enlarged. Noncontrasted stomach and bowel loops remain nonobstructed. Again small/scarred right kidney, appendectomy, cholecystectomy, and partial hysterectomy. Right ovary demonstrates 3 new cysts, largest measuring 2.3 cm and smallest 1.5 cm. No free fluid/air. Inferior right lobe of the liver demonstrates new 9 mm cyst versus hemangioma. Remaining liver, pancreas, spleen, adrenal glands, kidneys, ureters, and bladder appear unremarkable for noncontrast exam. Stable minimal aortoiliac calcifications without AAA. Osseous structures intact. Impression: 1. 3 new right ovary cysts better evaluated with pelvic sonogram if clinically warranted. No free fluid/air. 2. New subcentimeter hepatic cyst versus hemangioma. 3. Remaining CT abdomen/pelvis without contrast exam is negative.
[2020-01-30 14:11] VITALS: BP 135/76; PULSE 76; O2SAT 98
== END 2020-01-30 14:53 | disposition home or self-care (01) ==
LOC: ED 12:34
DX: R10.32 Left lower quadrant pain (principal); R10.31 Right lower quadrant pain; N83.201 Unspecified ovarian cyst, right side; Z79.899 Other long term (current) drug therapy; Z79.891 Long term (current) use of opiate analgesic; R07.89 Other chest pain
CPT/HCPCS: 36000; 36415; 71045; 74176; 80053; 81001; 82150; 83605; 83690; 84484; 85025; 87086; 93005; 96374; 96375; 99284; J2270; J2405

== ENCOUNTER 2022-01-01 07:26 | Emergency (ER) | payer OTHER ==
[2022-01-01] MEDS ORDERED: Sodium Chloride 0.9% 1000 ML 1,000 ML IV STA (07:46)
[2022-01-01] MEDS ORDERED: MORPHINE SULFATE 4 MG INJ IV ONE (07:46)
[2022-01-01] MEDS ORDERED: Zofran 4 MG/2 ML VIAL IV ONE (07:46)
[2022-01-01 07:53] LABS: Bacteria FEW /HPF (NEGATIVE); Epithelial Cells RARE /HPF (FEW); Mucus SLIGHT /HPF (NEGATIVE)
[2022-01-01 07:55] LABS: Appearance CLEAR (CLEAR); Bilirubin NEGATIVE (NEGATIVE); Dipstick done @ ? MAIN LAB; Glucose NEGATIVE (NEGATIVE); Ketones NEGATIVE (NEGATIVE); Nitrite NEGATIVE (NEGATIVE); Ph 5.5 (5-6); Protein,Urine Dip NEGATIVE (Negative); RBC SMALL Ery/ul (0-5); Specific Gravity 1.025 (1.005-1.025); Urobilinogen 0.2 mg/dL (0-1)
[2022-01-01 07:58] LABS: Urine Cultured Indicated? NO; WBC NONE SEEN /HPF (0-5)
[2022-01-01] MEDS ORDERED: Sodium Chloride 0.9% 1000 ML 1,000 ML ONE (08:01)
[2022-01-01] MEDS ORDERED: MORPHINE SULFATE 4 MG INJ ONE (08:01)
[2022-01-01] MEDS ORDERED: Zofran 4 MG/2 ML VIAL ONE (08:01)
--- NOTE | 2022-01-01 08:05 | ERPHSYRPT ---
- History of Present Illness Time Seen by Provider: 01/01/22 07:41 Historian: patient Exam Limitations: no limitations Patient Subjective Stated Complaint: Pt to ER with complaints of R flank pain x 2 weeks. pt states urine is discolored and has sediments. pt denies hx of kidney stones. pt states she has been treating pain at home. Triage Nursing Assessment: Pt A&OX4. pt ambulatory. skin pwd. pt appears to be in pain. Knees bent up. pt states she has had pain x 2 weeks. some nausea, some chills. Physician History: 51-year-old female with a history of hypertension, multiple kidney infections in the past presented in ER with 2 weeks history of gradually worsening sharp stabbing moderate to severe pain with no significant relief with [id number] medications. Reports intermittent dysuria/hematuria. No fever or chills reported. Timing/Duration: week(s) (2), gradual onset, worse Activities at Onset: rest Quality: sharpness, stabbing Abdominal Pain Onset Location: flank Pain Radiation: RLQ Severity of Pain-Max: severe Severity of Pain-Current: severe Modifying Factors: Worsens With: coughing, movement, palpation, urinating Associated Symptoms: back, nausea Previous symptoms: same symptoms as today Allergies/Adverse Reactions: nitrofurantoin [From Macrobid] Allergy (Verified 12/26/17 17:04) Hives Sulfa (Sulfonamide Antibiotics) Allergy (Verified 12/26/17 16:55) Hives shortness of breath ,diaphoretic azithromycin [From Zithromax] Adverse Reaction (Intermediate, Verified 12/26/17 18:40) Nausea and Vomiting naproxen [From Aleve] Adverse Reaction (Verified 12/26/17 17:04) Nausea Home Medications: Hydrocodone/APAP 10/325 mg [[place] 10/325 MG TableT] 1 tab PO TIDPRN PRN 04/10/15 [History] Ibuprofen 200 mg [Motrin 200 mg] 200 mg PO Q6H PRN PRN 12/26/17 [History] raNITIdine HCl [Zantac] 150 mg PO BID PRN PRN 12/26/17 [History] Losartan Potassium [Cozaar] 25 mg PO DAILY 01/30/20 [History] Sumatriptan Succinate [Imitrex] 100 mg PO DAILY 01/01/22 [History] Hx Tetanus, Diphtheria Vaccination/Date Given: Yes Hx Influenza Vaccination/Date Given: No Hx Pneumococcal Vaccination/Date Given: No Travel Risk - International Travel Have you traveled outside of the country in past 3 weeks: No - Coronavirus Screening Are you exhibiting any of the following symptoms?: No Close contact with a COVID-19 positive Pt in past 14-21 Days: No - Vaccine Status Have you recieved a Covid-19 vaccination: Yes Certified Athletic Trainer: Moderna - Vaccination Dates Date of 2cond Vaccination (if applicable): unk - Review of Systems Constitutional: No Symptoms Eyes: No Symptoms Ears, Nose, & Throat: No Symptoms Respiratory: No Symptoms Cardiac: No Symptoms Abdominal/Gastrointestinal: Abdominal Pain, Nausea Genitourinary Symptoms: Dysuria, Hematuria Musculoskeletal: Back Pain Skin: No Symptoms Neurological: No Symptoms Psychological: No Symptoms Endocrine: No Symptoms Hematologic/Lymphatic: No Symptoms Immunological/Allergic: No Symptoms - Past Medical History Pertinent Past Medical History: Yes Neurological History: Epilepsy, Migraines, Other ENT History: No Pertinent History Cardiac History: Other Respiratory History: No Pertinent History Endocrine Medical History: Other Musculoskeletal History: Osteoarthritis, Other GI Medical History: Gallbladder Disease, Other History: Other Psycho-Social History: No Pertinent History Female Reproductive Disorders: Endometriosis Other Medical History: Pituitary tumor, benign brain tumor (current), craniotomy for tumor on the brain (2006), hysterectomy, appendectomy, cholecystectomy, R hip nerve release (05/2016, Dr. Ricci), Lumbar Scoliosis, C5-6 Cervial disc De generation per 08/31/19 X-Ray, Lumbar Intervertebral disc degeneration, R hip trochanteric bursitis, Chronic Pain Syndrome, L humerus shaft fracture, Lumbar Lordosis (08/31/19 X-Ray), Meralgia paresthetica RLE, Cervicalagia, Iliotibial band syndrome, Hyperprolactinemia - Past Surgical History Past Surgical History: Yes Neuro Surgical History: No Pertinent History Cardiac: No Pertinent History Respiratory: No Pertinent History Gastrointestinal: Appendectomy, Cholecystectomy Female Surgical History: Hysterectomy Other Surgical History: CRANIOTOMY--TUMOR REMOVED. - Social History Smoking Status: Current every day smoker How long have you smoked: 30 Exposure to second hand smoke: No Drug Use: none Patient Lives Alone: No - Nursing Vital Signs Nursing Vital Signs: Initial Vital Signs Temperature 97.4 F 01/01/22 07:31 Pulse Rate 97 H 01/01/22 07:31 Respiratory Rate 19 01/01/22 07:31 Blood Pressure 139/72 01/01/22 07:31 O2 Sat by Pulse Oximetry 97 01/01/22 07:31 Pain Scale Pain Intensity 8 - Physical Exam General Appearance: no apparent distress, alert Eye Exam: PERRL/EOMI Ears, Nose, Throat Exam: normal ENT inspection Neck Exam: normal inspection, full range of motion Respiratory Exam: normal breath sounds, lungs clear Cardiovascular Exam: regular rate/rhythm, normal heart sounds Gastrointestinal/Abdomen Exam: soft, normal bowel sounds, tenderness (Right flank/right lower quadrant. Positive CVA tenderness on the right), guarding Back Exam: normal inspection, normal range of motion Extremity Exam: normal inspection, normal range of motion Neurologic Exam: alert, oriented x 3, cooperative Skin Exam: normal color SpO2 Interpretation: normal SpO2: 97 O2 Delivery: Room Air Ordered Tests: Active Orders 24 hr Category Date Time Status IV Insertion STAT Care 01/01/22 07:46 Active NPO (ED) STAT Care 01/01/22 07:46 Active ABDOMEN AND PELVIS W/0 CONTRAS [CT] Stat Exams 01/01/22 07:48 Completed CBC W DIFF Stat Lab 01/01/22 08:07 Completed CMP Stat Lab 01/01/22 08:07 Completed LIPASE Stat Lab 01/01/22 08:07 Completed UA W/RFX CULTURE Stat Lab 01/01/22 07:33 Completed Medication Summary Discontinued Medications Generic Name Dose Route Start Last Admin Trade Name Steph PRN Reason Stop Dose Admin Sodium Chloride 1,000 mls @ 999 mls/hr 01/01/22 07:46 01/01/22 10:22 Sodium Chloride 0.9% 1000 Ml IV 01/01/22 08:46 Infused .Q1H1M STA Infusion Sodium Chloride Confirm 01/01/22 08:01 Sodium Chloride 0.9% 1000 Ml Administered 01/01/22 08:02 Dose 1,000 mls @ ud .ROUTE .STK-MED ONE Ketorolac Tromethamine 30 mg 01/01/22 08:25 01/01/22 08:31 Ketorolac Tromethamine 30 Mg/Ml Inj IV 01/01/22 08:26 30 mg STAT ONE Administration Ketorolac Tromethamine Confirm 01/01/22 08:28 Ketorolac Tromethamine 30 Mg/Ml Inj Administered 01/01/22 08:29 Dose 30 mg .ROUTE .STK-MED ONE Morphine Sulfate 4 mg 01/01/22 07:46 01/01/22 08:03 Morphine Sulfate 4 Mg/Ml Injection IV 01/01/22 07:47 4 mg STAT ONE Administration Morphine Sulfate Confirm 01/01/22 08:01 Morphine Sulfate 4 Mg/Ml Injection Administered 01/01/22 08:02 Dose 4 mg .ROUTE .STK-MED ONE Ondansetron HCl 4 mg 01/01/22 07:46 01/01/22 08:03 Ondansetron Hcl 4 Mg/2 Ml Vial IV 01/01/22 07:47 4 mg STAT ONE Administration Ondansetron HCl Confirm 01/01/22 08:01 Ondansetron Hcl 4 Mg/2 Ml Vial Administered 01/01/22 08:02 Dose 4 mg .ROUTE .STK-MED ONE Lab/Rad Data: Laboratory Result Diagrams 01/01/22 08:07 01/01/22 08:07 Laboratory Results 01/01/22 01/01/22 01/01/22 Range/Units 08:07 08:07 07:33 WBC 12.2 H (4.0-10.5) x10^3/uL RBC 5.25 (4.1-5.4) x10^6/uL Hgb 15.4 (12.0-16.0) g/dL Hct 46.2 (35-47) % MCV 88.0 (78-100) fL MCH 29.3 (26-32) pg MCHC 33.3 (32-36) g/dL RDW 14.0 (11.5-14.0) % Plt Count 402 (150-450) x10^3/uL MPV 9.4 (7.5-11.0) fL Gran % 59.3 (36.0-66.0) % Immature Gran % (Auto) 0.4 (0.00-0.4) % Nucleat RBC Rel Count 0.0 (0.00-0.1) % Eos # (Auto) 0.42 (0-0.5) x10^3/uL Immature Gran # (Auto) 0.05 H (0.00-0.03) x10^3u/L Absolute Lymphs (auto) 3.48 (1.0-4.6) x10^3/uL Absolute Monos (auto) 0.88 (0.0-1.3) x10^3/uL Absolute Nucleated RBC 0.00 (0.00-0.01) x10^3u/L Lymphocytes % 28.5 (24.0-44.0) % Monocytes % 7.2 (0.0-12.0) % Eosinophils % 3.4 (0.00-5.0) % Basophils % 1.2 (0.0-0.4) % Absolute Granulocytes 7.23 H (1.4-6.9) x10^3/uL Basophils # 0.15 (0-0.4) x10^3/uL Sodium 133 L (137-145) mmol/L Potassium 4.2 (3.5-5.1) mmol/L Chloride 106 (98-107) mmol/L Carbon Dioxide 23 (22-30) mmol/L Anion Gap 7.3 (5-15) MEQ/L BUN 12 (7-17) mg/dL Creatinine 0.67 (0.52-1.04) mg/dL Estimated GFR > 60.0 ML/MIN Glucose 108 H (74-106) mg/dL Calcium 9.2 (8.4-10.2) mg/dL Total Bilirubin 0.40 (0.2-1.3) mg/dL AST 28 (14-36) U/L ALT 38 H (0-35) U/L Alkaline Phosphatase 116 (38-126) U/L Serum Total Protein 7.7 (6.3-8.2) g/dL Albumin 4.2 (3.5-5.0) g/dL Lipase 21 L (23-300) U/L Urinalys Dipstick Clnc MAIN LAB Urine Color YELLOW (YELLOW) Urine Appearance CLEAR (CLEAR) Urine pH 5.5 (5-6) Ur Specific [place] 1.025 (1.005-1.025) POC Urine Protein Conf NEGATIVE (Negative) Urine Ketones NEGATIVE (NEGATIVE) Urine Nitrite NEGATIVE (NEGATIVE) Urine Bilirubin NEGATIVE (NEGATIVE) Urine Urobilinogen 0.2 (0-1) mg/dL Urine Leukocytes NEGATIVE (NEGATIVE) Urine WBC (Auto) NONE SEEN (0-5) /HPF Urine RBC (Auto) 6-10 (0-2) /HPF U Epithel Cells (Auto) RARE (FEW) /HPF Urine Bacteria (Auto) FEW (NEGATIVE) /HPF Urine RBC SMALL (0-5) Angel/ul Urine Mucus (Auto) SLIGHT (NEGATIVE) /HPF Ur Culture Indicated? NO Urine Glucose NEGATIVE (NEGATIVE) mg/dL - Progress Progress: improved, re-examined Progress Note: 01/01/22 10:59 51-year-old is evaluated for right flank pain. She is given fluids and symptomatic treatment for pain, on reevaluation feeling much better. Patient work-up showed white count of 12, no acute renal failure. No UTI. CT did show 1.6 cm right renal lower pole masslike irregularity/opacity. Does not have any CT abdomen pelvis available for contrast here and patient cannot tell me if she has any CT done anywhere else. She does take pain medications at home. I have called Dr. Raygoza office, outpatient appointment is made. Do not think she needs any other work-up and is stable for discharge with outpatient follow-up. Discussed signs symptoms of worsening needing return to ER which he seems understanding. Counseled pt/family regarding: lab results, diagnosis, need for follow-up, rad results - Departure Departure Disposition: Home Clinical Impression: Right kidney mass, Flank pain Condition: Stable Critical Care Time: No Referrals: PILY SWAN MD [Primary Care Provider] - Follow up/PCP as directed (1-2 days for reevaluation) KRISTA RAYGOZA [COURTESY STAFF] - Follow up/PCP as directed (1-2 days for reevaluation) Instructions: Flank Pain Additional Instructions: Take pain medications which you have at home as needed. Follow-up with primary care and urology for reevaluation. Return to ER for intractable pain, vomiting or if develop fever chills/difficulty urination etc.
[2022-01-01 08:09] LABS: Absolute Neutrophil Ct (ANC) 7.23 x10^3/uL (1.4-6.9); Basophil (Absolute #) 0.15 x10^3/uL (0-0.4); Eosinophil % 3.4 % (0.00-5.0); Eosinophil (Absolute #) 0.42 x10^3/uL (0-0.5); Hematocrit 46.2 % (35-47); Hemoglobin 15.4 g/dL (12.0-16.0); Lymphocyte (Absolute #) 3.48 x10^3/uL (1.0-4.6); Lymphocytes % 28.5 % (24.0-44.0); Mean Corpuscular Hemoglobin 29.3 pg (26-32); Mean Corpuscular Hgb Concent. 33.3 g/dL (32-36); Mean Platelet Volume 9.4 fL (7.5-11.0); Monocyte (Absolute #) 0.88 x10^3/uL (0.0-1.3); Monocytes % 7.2 % (0.0-12.0); Neutrophil % 59.3 % (36.0-66.0); Platelet Count 402 x10^3/uL (150-450); Red Blood Count 5.25 x10^6/uL (4.1-5.4); White Blood Count 12.2 x10^3/uL (4.0-10.5)
[2022-01-01 08:20] LABS: ALBUMIN 4.2 g/dL (3.5-5.0); ALKALINE PHOSPHATASE 116 U/L (38-126); ANION GAP 7.3 MEQ/L (5-15); BLOOD UREA NITROGEN 12 mg/dL (7-17); CHLORIDE 106 mmol/L (98-107); Calcium 9.2 mg/dL (8.4-10.2); Carbon Dioxide 23 mmol/L (22-30); Creatinine 1 0.67 mg/dL (0.52-1.04); EST GLOMERULAR FILTRATION RATE > 60.0 ML/MIN; Glucose 108 mg/dL (74-106); LIPASE 21 U/L (23-300); Potassium 4.2 mmol/L (3.5-5.1); SGOT/AST 28 U/L (14-36); SGPT/ALT 38 U/L (0-35); SODIUM 133 mmol/L (137-145); Total Protein 7.7 g/dL (6.3-8.2)
[2022-01-01] MEDS ORDERED: TORAdol 30 mg Injection IV ONE (08:25)
[2022-01-01] MEDS ORDERED: TORAdol 30 mg Injection ONE (08:28)
--- NOTE | 2022-01-01 09:06 | XRAY ---
Indication: Right flank pain 2 weeks. Frequent urination. Multiple contiguous axial images obtained through the abdomen and pelvis without contrast. Comparison: January 30, 2020 Lung bases demonstrates new incompletely visualized irregular right lower lobe noncalcified masslike opacity measuring at least 1.6 cm. Mild bilateral dependent atelectasis. Heart not enlarged. Noncontrasted stomach and bowel loops nonobstructed. Right lobe liver demonstrates grossly stable 2 small round hypodense lesions, cysts versus hemangiomas. Again small/scarred right kidney, appendectomy, cholecystectomy, and partial hysterectomy. No free fluid/air. Remaining liver, pancreas, spleen, adrenal glands, kidneys, ureters, and bladder are unremarkable for noncontrast exam. There remains mild scattered aortoiliac calcifications without AAA. Osseous structures intact. No ventral or inguinal hernias. Impression: 1. New right lower lobe irregular masslike opacity. Outside comparison studies recommended if available. If not, PET CT may yield further information. 2. Stable small hepatic cysts versus hemangiomas, right renal scarring, and arteriosclerotic disease. 3. Remaining CT abdomen/pelvis without contrast exam is negative. Comment: Preliminary interpretation made by [facility]. No critical discrepancy.
[2022-01-01 11:28] VITALS: BP 128/88; PULSE 90; O2SAT 98
== END 2022-01-01 11:19 | disposition home or self-care (01) ==
LOC: ED 07:26
DX: N28.89 Other specified disorders of kidney and ureter (principal); R10.9 Unspecified abdominal pain; R30.0 Dysuria; I10 Essential (primary) hypertension; Z72.0 Tobacco use; Z79.899 Other long term (current) drug therapy
CPT/HCPCS: 36000; 36415; 74176; 80053; 81015; 83690; 85025; 96374; 96375; 99284; J1885; J2270; J2405

== ENCOUNTER 2022-06-28 08:43 | Emergency (ER) | payer OTHER ==
[2022-06-28] MEDS ORDERED: BABY ASPIRIN 81 MG CHEW PO ONE (09:02)
--- NOTE | 2022-06-28 09:02 | ERPHSYRPT ---
- History of Present Illness Time Seen by Provider: 06/28/22 09:02 Historian: patient Exam Limitations: no limitations Patient Subjective Stated Complaint: Chest pain Triage Nursing Assessment: Patient ambulated back to ED and transferred self to bed. Patient A+O X 3. Patient's skin pink, warm and dry. Patient complains of right sided chest pain 6/10 that started the past few days but today has gotten worse. Patient states she has had increased SOB. Patient has recent mass found in right lung, lymph nodes, and thyroid unsure if cancerous. Lungs clear a/p bobo. Physician History: This is a 51-year-old white female patient of Dr. Swan who has had a known right lung mass since February 2022. Patient presents to the emergency department with increasing shortness of breath and right sided chest pain. The pain is sharp and nonradiating. It is localized in the right lower anterior lateral location. She has not had hemoptysis. Patient states that since February 2022 they have been treating this more as a fungal infection. There appeared to be some inflamed/enlarged lymph nodes in the lungs on the right side as well. She has had a PET scan already and has another PET scan of her lungs scheduled. Patient has a history of hypertension, epilepsy, migraine headaches, osteoarthritis. Timing/Duration: day(s) (Last few days) Activities at Onset: none Quality: sharpness, stabbing Location: other (Right anterior lateral lower chest) Severity of Pain-Max: mild (To moderate) Severity of Pain-Current: mild (To moderate) Modifying Factors: Improves With: other (Deep breath worsens) Associated Symptoms: shortness of breath Prior Chest Pain/Cardiac Workup: no prior chest pain, no prior cardiac workup Nitro Today/Relief: no nitro taken today Aspirin Treatment Today: no aspirin today (Patient states that she cannot take aspirin because it "tears up my stomach") Allergies/Adverse Reactions: nitrofurantoin [From Macrobid] Allergy (Verified 06/28/22 08:45) Hives Sulfa (Sulfonamide Antibiotics) Allergy (Verified 06/28/22 08:45) Hives shortness of breath ,diaphoretic azithromycin [From Zithromax] Adverse Reaction (Intermediate, Verified 06/28/22 08:45) Nausea and Vomiting naproxen [From Aleve] Adverse Reaction (Verified 04/17/23 08:45) Nausea Home Medications: Hydrocodone/APAP 10/325 mg [[place] 10/325 MG TableT] 1 tab PO TIDPRN PRN 04/10/15 [History] Ibuprofen 200 mg [Motrin 200 mg] 200 mg PO Q6H PRN PRN 12/26/17 [History] raNITIdine HCl [Zantac] 150 mg PO BID PRN PRN 12/26/17 [History] Losartan Potassium [Cozaar] 25 mg PO DAILY 01/30/20 [History] Hx Tetanus, Diphtheria Vaccination/Date Given: Yes Hx Influenza Vaccination/Date Given: No Hx Pneumococcal Vaccination/Date Given: No Travel Risk - International Travel Have you traveled outside of the country in past 3 weeks: No - Coronavirus Screening Are you exhibiting any of the following symptoms?: No Close contact with a COVID-19 positive Pt in past 14-21 Days: No - Vaccine Status Have you recieved a Covid-19 vaccination: Yes Education Program Specialist: Moderna - Vaccination Dates Date of 2cond Vaccination (if applicable): unk - Review of Systems Constitutional: No Symptoms Eyes: No Symptoms Ears, Nose, & Throat: No Symptoms Respiratory: Dyspnea Cardiac: Chest Pain (Right anterior lateral lower chest wall) Abdominal/Gastrointestinal: No Symptoms Genitourinary Symptoms: No Symptoms Musculoskeletal: No Symptoms Skin: No Symptoms Neurological: No Symptoms Psychological: No Symptoms Endocrine: No Symptoms Hematologic/Lymphatic: No Symptoms Immunological/Allergic: No Symptoms All Other Systems: Reviewed and Negative - Past Medical History Pertinent Past Medical History: Yes Neurological History: Epilepsy, Migraines, Other ENT History: No Pertinent History Cardiac History: Other Respiratory History: No Pertinent History Endocrine Medical History: Other Musculoskeletal History: Osteoarthritis, Other GI Medical History: Gallbladder Disease, Other History: Other Psycho-Social History: No Pertinent History Female Reproductive Disorders: Endometriosis Other Medical History: Pituitary tumor, benign brain tumor (current), craniotomy for tumor on the brain (2006), hysterectomy, appendectomy, cholecystectomy, R hip nerve release (05/2016, Dr. Ricci), Lumbar Scoliosis, C5-6 Cervial disc Degeneration per 08/31/19 X-Ray, Lumbar Intervertebral disc degeneration, R hip trochanteric bursitis, Chronic Pain Syndrome, L humerus shaft fracture, Lumbar Lordosis (08/31/19 X-Ray), Meralgia paresthetica RLE, Cervicalagia, Iliotibial band syndrome, Hyperprolactinemia, Recent mass in right lung, lymph nodes and thyroid May 2022 - Past Surgical History Past Surgical History: Yes Neuro Surgical History: No Pertinent History Cardiac: No Pertinent History Respiratory: No Pertinent History Gastrointestinal: Appendectomy, Cholecystectomy Female Surgical History: Hysterectomy Other Surgical History: CRANIOTOMY--TUMOR REMOVED. - Social History Smoking Status: Former smoker How long have you smoked: 30 Exposure to second hand smoke: No Drug Use: none Patient Lives Alone: No - Nursing Vital Signs Nursing Vital Signs: Initial Vital Signs Temperature 96.9 F 06/28/22 08:49 Pulse Rate 62 06/28/22 08:49 Respiratory Rate 14 06/28/22 08:49 Blood Pressure 161/69 06/28/22 08:49 O2 Sat by Pulse Oximetry 99 06/28/22 08:49 Pain Scale Pain Intensity 4 - Physical Exam General Appearance: mild distress, alert, anxiety Eye Exam: PERRL/EOMI, eyes nml inspection Ears, Nose, Throat Exam: normal ENT inspection, moist mucous membranes Neck Exam: normal inspection, non-tender, supple, full range of motion Respiratory Exam: normal breath sounds, chest tenderness, lungs clear, airway intact, No respiratory distress Cardiovascular Exam: regular rate/rhythm, normal heart sounds, normal peripheral pulses Gastrointestinal/Abdomen Exam: soft, normal bowel sounds, No tenderness Pelvic Exam: not done Rectal Exam: not done Back Exam: normal inspection, normal range of motion, No CVA tenderness, No vertebral tenderness Extremity Exam: normal inspection, normal range of motion, pelvis stable Neurologic Exam: alert, oriented x 3, cooperative, 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 nml as tested, normal mood/affect, nml cerebellar function, nml station & gait, sensation nml Skin Exam: normal color, warm, dry Lymphatic Exam: No adenopathy SpO2 Interpretation: normal SpO2: 99 O2 Delivery: Room Air - Course Nursing assessment & vital signs reviewed: Yes EKG Interpreted by Me: RATE (59), Sinus Rhythm, NORMAL AXIS, NORMAL INTERVALS, NORMAL QRS, NORMAL ST-T, Other (No acute ischemic changes on today's twelve-lead EKG.) Ordered Tests: Active Orders 24 hr Category Date Time Status Property Appraiser STAT Care 06/28/22 09:03 Active EKG-ER Only STAT Care 06/28/22 09:02 Active IV Insertion STAT Care 06/28/22 09:02 Active Pulse Oximetry (ED) STAT Care 06/28/22 09:02 Active CHEST 1 VIEW (PORTABLE) Stat Exams 06/28/22 09:02 Completed CBC W DIFF Stat Lab 06/28/22 09:15 Completed CMP Stat Lab 06/28/22 09:15 Completed D-DIMER QUANTITATIVE Stat Lab 06/28/22 09:15 Completed TROPONIN Q4H Lab 06/28/22 09:15 Completed TROPONIN Q4H Lab 06/28/22 13:15 Ordered TROPONIN Q4H Lab 06/28/22 17:15 Ordered Medication Summary Discontinued Medications Generic Name Dose Route Start Last Admin Trade Name Freq PRN Reason Stop Dose Admin Aspirin 324 mg 06/28/22 09:02 06/28/22 09:11 Aspirin 81 Mg Tab.Chew PO 06/28/22 09:03 Not Given STAT ONE Aspirin Confirm 06/28/22 09:09 Aspirin 81 Mg Tab.Chew Administered 06/28/22 09:10 Dose 324 mg .ROUTE .STK-MED ONE Morphine Sulfate 4 mg 06/28/22 09:13 06/28/22 09:44 Morphine Sulfate 4 Mg/Ml Injection IV 06/28/22 09:14 4 mg STAT ONE Administration Morphine Sulfate Confirm 06/28/22 09:42 Morphine Sulfate 4 Mg/Ml Injection Administered 06/28/22 09:43 Dose 4 mg .ROUTE .STK-MED ONE Ondansetron HCl 4 mg 06/28/22 09:13 06/28/22 09:44 Ondansetron Hcl 4 Mg/2 Ml Vial IV 06/28/22 09:14 4 mg STAT ONE Administration Ondansetron HCl Confirm 06/28/22 09:42 Ondansetron Hcl 4 Mg/2 Ml Vial Administered 06/28/22 09:43 Dose 4 mg .ROUTE .STK-MED ONE Lab/Rad Data: Laboratory Result Diagrams 06/28/22 09:15 06/28/22 09:15 Laboratory Results 06/28/22 06/28/22 06/28/22 Range/Units 10:31 09:15 09:15 WBC (4.0-10.5) x10^3/uL RBC (4.1-5.4) x10^6/uL Hgb (12.0-16.0) g/dL Hct (35-47) % MCV (78-100) fL MCH (26-32) pg MCHC (32-36) g/dL RDW (11.5-14.0) % Plt Count (150-450) x10^3/uL MPV (7.5-11.0) fL Gran % (36.0-66.0) % Immature Gran % (Auto) (0.00-0.4) % Nucleat RBC Rel Count (0.00-0.1) % Eos # (Auto) (0-0.5) x10^3/uL Immature Gran # (Auto) (0.00-0.03) x10^3u/L Absolute Lymphs (auto) (1.0-4.6) x10^3/uL Absolute Monos (auto) (0.0-1.3) x10^3/uL Absolute Nucleated RBC (0.00-0.01) x10^3u/L Lymphocytes % (24.0-44.0) % Monocytes % (0.0-12.0) % Eosinophils % (0.00-5.0) % Basophils % (0.0-0.4) % Absolute Granulocytes (1.4-6.9) x10^3/uL Basophils # (0-0.4) x10^3/uL D-Dimer 0.29 (0.0-0.50) mg/L Sodium (137-145) mmol/L Potassium (3.5-5.1) mmol/L Chloride (98-107) mmol/L Carbon Dioxide (22-30) mmol/L Anion Gap (5-15) MEQ/L BUN (7-17) mg/dL Creatinine (0.52-1.04) mg/dL Estimated GFR ML/MIN Glucose (74-106) mg/dL Calcium (8.4-10.2) mg/dL Total Bilirubin (0.2-1.3) mg/dL AST (14-36) U/L ALT (0-35) U/L Alkaline Phosphatase (38-126) U/L Troponin I < 0.012 (0.000-0.034) ng/mL Serum Total Protein (6.3-8.2) g/dL Albumin (3.5-5.0) g/dL Influenza Type A Ag NEGATIVE (NEGATIVE) Influenza Type B Ag NEGATIVE (NEGATIVE) RSV (PCR) NEGATIVE (NEGATIVE) SARS-CoV-2 (PCR) NEGATIVE (NEGATIVE) 06/28/22 06/28/22 Range/Units 09:15 09:15 WBC 9.0 (4.0-10.5) x10^3/uL RBC 5.61 H (4.1-5.4) x10^6/uL Hgb 15.6 (12.0-16.0) g/dL Hct 47.5 H (35-47) % MCV 84.7 (78-100) fL MCH 27.8 (26-32) pg MCHC 32.8 (32-36) g/dL RDW 14.5 H (11.5-14.0) % Plt Count 305 (150-450) x10^3/uL MPV 10.9 (7.5-11.0) fL Gran % 69.3 H (36.0-66.0) % Immature Gran % (Auto) 0.2 (0.00-0.4) % Nucleat RBC Rel Count 0.0 (0.00-0.1) % Eos # (Auto) 0.22 (0-0.5) x10^3/uL Immature Gran # (Auto) 0.02 (0.00-0.03) x10^3u/L Absolute Lymphs (auto) 1.91 (1.0-4.6) x10^3/uL Absolute Monos (auto) 0.55 (0.0-1.3) x10^3/uL Absolute Nucleated RBC 0.00 (0.00-0.01) x10^3u/L Lymphocytes % 21.2 L (24.0-44.0) % Monocytes % 6.1 (0.0-12.0) % Eosinophils % 2.4 (0.00-5.0) % Basophils % 0.8 (0.0-0.4) % Absolute Granulocytes 6.22 (1.4-6.9) x10^3/uL Basophils # 0.07 (0-0.4) x10^3/uL D-Dimer (0.0-0.50) mg/L Sodium 143 (137-145) mmol/L Potassium 3.6 (3.5-5.1) mmol/L Chloride 105 (98-107) mmol/L Carbon Dioxide 25 (22-30) mmol/L Anion Gap 15.6 H (5-15) MEQ/L BUN 12 (7-17) mg/dL Creatinine 0.65 (0.52-1.04) mg/dL Estimated GFR > 60.0 ML/MIN Glucose 120 H (74-106) mg/dL Calcium 9.3 (8.4-10.2) mg/dL Total Bilirubin 0.60 (0.2-1.3) mg/dL AST 29 (14-36) U/L ALT 28 (0-35) U/L Alkaline Phosphatase 99 (38-126) U/L Troponin I (0.000-0.034) ng/mL Serum Total Protein 7.2 (6.3-8.2) g/dL Albumin 4.1 (3.5-5.0) g/dL Influenza Type A Ag (NEGATIVE) Influenza Type B Ag (NEGATIVE) RSV (PCR) (NEGATIVE) SARS-CoV-2 (PCR) (NEGATIVE) - Progress Progress: improved Air Movement: good Progress Note: 06/28/22 11:25 Grossly stable right side pulmonary masslike opacity when compared to the previ ous CT scan. The impression was given by the radiologist and reviewed by me. This patient's medical issue is 1 of moderate complexity. The level of complexity in the work-up performed was based on the review of the patient's past medical history, medication list, drug allergy list, history present illness and physical findings on examination. The work-up performed includes a chest x-ray, twelve-lead EKG, D-dimer, troponin level, CBC, CMP. We provided the patient with an intravenous line and gave 4 mg of intravenous morphine and 4 mg of intravenous Zofran during her hospitalization in the emergency department. I reviewed the results of the studies performed. Patient has no acute, emergent issue. Patient is to follow-up with her primary care provider for further evaluation management. Blood Culture(s) Obtained: No Antibiotics given: No Counseled pt/family regarding: lab results, diagnosis, need for follow-up, rad results Medical Desision Making - Independent Historian Additional History obtained from: Spouse - Discussion of managment Reviewed:: Test results, Need for additional workup Agreed on:: Treatment plan, need for follow-up - Diagnostic Testing Diagnostic test were ordered, analyzed, and reviewed by me: Yes Radiological Interpretation: Reviewed by me, Teleradiologist Report - Risk of complications The pt has a mod risk of morbidity or mortality based on: Need for prescription drug management - Departure Departure Disposition: Home Clinical Impression: Right-sided chest pain, Right lower lobe lung mass Condition: Stable Critical Care Time: No Referrals: PILY SWAN MD [Primary Care Provider] - Follow up/PCP as directed Additional Instructions: Continue medication as prescribed. Follow-up with your primary care provider and other specialist regarding your right-sided chest pain and pulmonary mass on the right side. Follow-up with your PET scan on the prescribed date and time. Prescriptions: Oxycodone HCl/Acetaminophen [Percocet 5-325 mg Tablet] 1 each PO Q8H PRN PRN #6 tablet MDD 3 PRN Reason: Moderate To Severe Pain
[2022-06-28] MEDS ORDERED: BABY ASPIRIN 81 MG CHEW ONE (09:09)
[2022-06-28] MEDS ORDERED: MORPHINE SULFATE 4 MG INJ IV ONE (09:13)
[2022-06-28] MEDS ORDERED: Zofran 4 MG/2 ML VIAL IV ONE (09:13)
[2022-06-28 09:25] LABS: Absolute Neutrophil Ct (ANC) 6.22 x10^3/uL (1.4-6.9); BASOPHIL % 0.8 % (0.0-0.4); Basophil (Absolute #) 0.07 x10^3/uL (0-0.4); Eosinophil % 2.4 % (0.00-5.0); Eosinophil (Absolute #) 0.22 x10^3/uL (0-0.5); Hematocrit 47.5 % (35-47); Hemoglobin 15.6 g/dL (12.0-16.0); IMMATURE GRAN # 0.02 x10^3u/L (0.00-0.03); IMMATURE GRAN % 0.2 % (0.00-0.4); Lymphocyte (Absolute #) 1.91 x10^3/uL (1.0-4.6); Lymphocytes % 21.2 % (24.0-44.0); Mean Cell Volume 84.7 fL (78-100); Mean Corpuscular Hemoglobin 27.8 pg (26-32); Mean Corpuscular Hgb Concent. 32.8 g/dL (32-36); Mean Platelet Volume 10.9 fL (7.5-11.0); Monocyte (Absolute #) 0.55 x10^3/uL (0.0-1.3); Monocytes % 6.1 % (0.0-12.0); Neutrophil % 69.3 % (36.0-66.0); Platelet Count 305 x10^3/uL (150-450); Red Blood Count 5.61 x10^6/uL (4.1-5.4); Red Cell Distribution Width 14.5 % (11.5-14.0)
[2022-06-28 09:37] LABS: ALBUMIN 4.1 g/dL (3.5-5.0); ALKALINE PHOSPHATASE 99 U/L (38-126); ANION GAP 15.6 MEQ/L (5-15); BLOOD UREA NITROGEN 12 mg/dL (7-17); CHLORIDE 105 mmol/L (98-107); Calcium 9.3 mg/dL (8.4-10.2); Carbon Dioxide 25 mmol/L (22-30); Creatinine 1 0.65 mg/dL (0.52-1.04); EST GLOMERULAR FILTRATION RATE > 60.0 ML/MIN; Glucose 120 mg/dL (74-106); Potassium 3.6 mmol/L (3.5-5.1); SGOT/AST 29 U/L (14-36); SGPT/ALT 28 U/L (0-35); SODIUM 143 mmol/L (137-145); Total Protein 7.2 g/dL (6.3-8.2)
[2022-06-28] MEDS ORDERED: MORPHINE SULFATE 4 MG INJ ONE (09:42)
[2022-06-28] MEDS ORDERED: Zofran 4 MG/2 ML VIAL ONE (09:42)
--- NOTE | 2022-06-28 09:47 | XRAY ---
Indication: Right chest pain and short of breath. Right lung mass. Comparison: March 10, 2022 Portable chest demonstrates grossly stable CT proven small right lower lobe masslike opacity. Remaining heart, lungs, and bony thorax normal
[2022-06-28 11:10] LABS: INFLUENZA A NEGATIVE (NEGATIVE); INFLUENZA B NEGATIVE (NEGATIVE); RESPIRATORY SYNCTIAL VIRUS NEGATIVE (NEGATIVE); SARS-CoV-2 Xpert Express NEGATIVE (NEGATIVE)
[2022-06-28 11:40] VITALS: BP 139/54; PULSE 58; O2SAT 97
== END 2022-06-28 11:56 | disposition home or self-care (01) ==
LOC: ED 08:43
DX: R91.8 Other nonspecific abnormal finding of lung field (principal); R07.9 Chest pain, unspecified; R06.02 Shortness of breath; I10 Essential (primary) hypertension; Z79.891 Long term (current) use of opiate analgesic; Z79.899 Other long term (current) drug therapy
CPT/HCPCS: 0241U; 36000; 36415; 71045; 80053; 84484; 85025; 85379; 93005; 93041; 94760; 96374; 96375; 99284; J2270; J2405; A9270-GY

== ENCOUNTER 2023-04-17 08:56 | Emergency (ER) | payer OTHER ==
[2023-04-17 09:03] VITALS: TEMP 97.1
[2023-04-17] MEDS ORDERED: Ativan 2 MG/1 ML VIAL IM ONE (09:11)
[2023-04-17] MEDS ORDERED: TORAdol 30 mg Injection IM ONE (09:12)
[2023-04-17] MEDS ORDERED: TORAdol 30 mg Injection ONE (09:14)
[2023-04-17] MEDS ORDERED: Ativan 2 MG/1 ML VIAL ONE (09:14)
--- NOTE | 2023-04-17 09:31 | ERPHSYRPT ---
- History of Present Illness Time Seen by Provider: 04/17/23 09:25 Source: patient, family Exam Limitations: no limitations Patient Subjective Stated Complaint: pt here for upper back pain for a couple days, no cough or fever, no injury Triage Nursing Assessment: pt alert,walked in, sob with excertion, no cough, skin w/d/p, no edema noted Physician History: Patient is 52-year-old female came to the emergency room with initial complaining of shortness of breath but when evaluated more further she says that she is complaining of pain on her right side of the posterior chest wall. Patient pain got worse while she is taking breath and that is what making her short of breath. She denies any fever chills nausea vomiting shortness of breath or cough or phlegm. Patient has a significant past medical history off Pituitary tumor, benign brain tumor (current), craniotomy for tumor on the brain (2006), hysterectomy, appendectomy, cholecystectomy, R hip nerve release (05/2016, Dr. Ricci), Lumbar Scoliosis, C5-6 Cervial disc Degeneration per 08/31/19 X-Ray, Lumbar Intervertebral disc degeneration, R hip trochanteric bursitis, Chronic Pain Syndrome, L humerus shaft fracture, Lumbar Lordosis (08/31/19 X-Ray), Meralgia paresthetica RLE, Cervicalagia, Iliotibial band syndrome, Hyperprolactinemia, Recent mass in right lung, lymph nodes and thyroid May 2022 Timing/Duration: yesterday Severity: moderate Associated Symptoms: denies symptoms Allergies/Adverse Reactions: nitrofurantoin [From Macrobid] Allergy (Verified 04/17/23 08:57) Hives Sulfa (Sulfonamide Antibiotics) Allergy (Verified 04/17/23 08:57) Hives shortness of breath ,diaphoretic azithromycin [From Zithromax] Adverse Reaction (Intermediate, Verified 04/17/23 08:57) Nausea and Vomiting naproxen [From Aleve] Adverse Reaction (Verified 04/17/23 08:57) Nausea Home Medications: Losartan Potassium [Cozaar] 25 mg PO DAILY 01/30/20 [History] Hydrocodone/Acetaminophen [Hydrocodone-Acetamin 7.5-325] 1 ea DAILY 04/17/23 [History] Itraconazole [Sporanox] 100 mg PO DAILY 04/17/23 [History] Hx Tetanus, Diphtheria Vaccination/Date Given: Yes Hx Influenza Vaccination/Date Given: No Hx Pneumococcal Vaccination/Date Given: No Immunizations Up to Date: Yes Travel Risk - International Travel Have you traveled outside of the country in past 3 weeks: No - Coronavirus Screening Are you exhibiting any of the following symptoms?: No Close contact with a COVID-19 positive Pt in past 14-21 Days: No - Vaccine Status Have you recieved a Covid-19 vaccination: Yes [employer]: Moderna - Vaccination Dates Date of 2cond Vaccination (if applicable): unk - Review of Systems Constitutional: No Fever, No Chills Eyes: No Symptoms Ears, Nose, & Throat: No Symptoms Respiratory: Other (right side posterior chest wall pain), No Cough, No Dyspnea Cardiac: No Chest Pain, No Edema, No Syncope Abdominal/Gastrointestinal: No Abdominal Pain, No Nausea, No Vomiting, No Diarrhea Genitourinary Symptoms: No Dysuria Musculoskeletal: No Back Pain, No Neck Pain Skin: No Rash Neurological: No Dizziness, No Focal Weakness, No Sensory Changes Psychological: No Symptoms Endocrine: No Symptoms All Other Systems: Reviewed and Negative - Past Medical History Pertinent Past Medical History: Yes Neurological History: Epilepsy, Migraines, Other ENT History: No Pertinent History Cardiac History: Other Respiratory History: No Pertinent History Endocrine Medical History: Other Musculoskeletal History: Osteoarthritis, Other GI Medical History: Gallbladder Disease, Other History: Other Psycho-Social History: No Pertinent History Female Reproductive Disorders: Endometriosis Other Medical History: Pituitary tumor, benign brain tumor (current), craniotomy for tumor on the brain (2006), hysterectomy, appendectomy, cholecystectomy, R hip nerve release (05/2016, Dr. Ricci), Lumbar Scoliosis, C5-6 Cervial disc Degeneration per 08/31/19 X-Ray, Lumbar Intervertebral disc degeneration, R hip trochanteric bursitis, Chronic Pain Syndrome, L humerus shaft fracture, Lumbar Lordosis (08/31/19 X-Ray), Meralgia paresthetica RLE, Cervicalagia, Iliotibial band syndrome, Hyperprolactinemia, Recent mass in right lung, lymph nodes and thyroid May 2022 - Past Surgical History Past Surgical History: Yes Neuro Surgical History: No Pertinent History Cardiac: No Pertinent History Respiratory: No Pertinent History Gastrointestinal: Appendectomy, Cholecystectomy Female Surgical History: Hysterectomy Other Surgical History: CRANIOTOMY--TUMOR REMOVED. - Social History Smoking Status: Former smoker How long have you smoked: 30 Exposure to second hand smoke: No Drug Use: none Patient Lives Alone: No - Nursing Vital Signs Nursing Vital Signs: Initial Vital Signs Temperature 97.1 F 04/17/23 09:02 Pulse Rate 70 04/17/23 09:02 Respiratory Rate 24 04/17/23 09:02 Blood Pressure 141/80 04/17/23 09:02 O2 Sat by Pulse Oximetry 100 04/17/23 09:02 Pain Scale Pain Intensity 7 - Physical Exam General Appearance: no apparent distress, alert Eye Exam: PERRL/EOMI, eyes nml inspection Ears, Nose, Throat Exam: normal ENT inspection, TMs normal, pharynx normal, moist mucous membranes Neck Exam: normal inspection, non-tender, supple, full range of motion Respiratory Exam: normal breath sounds, lungs clear, other (pain on light touch on posterior right lower chest wall), No respiratory distress Cardiovascular Exam: regular rate/rhythm, normal heart sounds, normal peripheral pulses Gastrointestinal/Abdomen Exam: soft, normal bowel sounds, No tenderness, No mass Back Exam: normal inspection, normal range of motion, No CVA tenderness, No vertebral tenderness Extremity Exam: normal inspection, normal range of motion, pelvis stable Neurologic Exam: alert, oriented x 3, cooperative, normal mood/affect, nml cerebellar function, nml station & gait, sensation nml, No motor deficits Skin Exam: normal color, warm, dry, No rash Lymphatic Exam: No adenopathy SpO2 Interpretation: normal SpO2: 98 O2 Delivery: Room Air - Course Nursing assessment & vital signs reviewed: Yes EKG Interpreted by Me: Sinus Rhythm Rhythm Strip: Atrial Flutter - Radiology Exams Chest X-ray Interpretation: Reviewed by me, Negative, No Pneumonia, No Pneumothorax Ordered Tests: Active Orders 24 hr Category Date Time Status CHEST 2 VIEWS (PA AND LAT) Stat Exams 04/17/23 09:30 Taken CBC W DIFF Stat Lab 04/17/23 09:55 Completed CMP Stat Lab 04/17/23 09:55 Completed D-DIMER QUANTITATIVE Stat Lab 04/17/23 09:55 Completed MAGNESIUM Stat Lab 04/17/23 09:55 Completed NT PRO BNPII Stat Lab 04/17/23 09:55 Completed TROPONIN Stat Lab 04/17/23 09:55 Completed TSH, 3RD Generation Stat Lab 04/17/23 09:55 Completed Banner 7-14 Day Holter ONCE RT 04/17/23 10:54 Ordered Medication Summary Generic Name Dose Route Start Last Admin Trade Name Steph PRN Reason Stop Dose Admin Sodium Chloride 1,000 mls @ 50 mls/hr 04/17/23 09:45 04/17/23 10:03 Sodium Chloride 0.9% 1000 Ml IV 05/17/23 09:44 50 mls/hr .Q20H CODY Administration Discontinued Medications Generic Name Dose Route Start Last Admin Trade Name Steph SINGHN Reason Stop Dose Admin Hydromorphone HCl 1 mg 04/17/23 09:56 04/17/23 10:06 Hydromorphone 1 Mg/1ml Inj IV 04/17/23 09:57 1 mg STAT ONE Administration Hydromorphone HCl Confirm 04/17/23 10:05 Hydromorphone 1 Mg/1ml Inj Administered 04/17/23 10:06 Dose 1 mg .ROUTE .STK-MED ONE Ketorolac Tromethamine 60 mg 04/17/23 09:12 04/17/23 09:17 Ketorolac Tromethamine 30 Mg/Ml Inj IM 04/17/23 09:13 60 mg STAT ONE Administration Ketorolac Tromethamine Confirm 04/17/23 09:14 Ketorolac Tromethamine 30 Mg/Ml Inj Administered 04/17/23 09:15 Dose 60 mg .ROUTE .STK-MED ONE Lorazepam 2 mg 04/17/23 09:11 04/17/23 09:16 Lorazepam 2 Mg/1 Ml 2 Mg Vial IM 04/17/23 09:12 2 mg STAT ONE Administration Lorazepam Confirm 04/17/23 09:14 Lorazepam 2 Mg/1 Ml 2 Mg Vial Administered 04/17/23 09:15 Dose 2 mg .ROUTE .STK-MED ONE Ondansetron HCl 4 mg 04/17/23 09:56 04/17/23 10:06 Ondansetron Hcl 4 Mg/2 Ml Vial IV 04/17/23 09:57 4 mg STAT ONE Administration Ondansetron HCl Confirm 04/17/23 10:04 Ondansetron Hcl 4 Mg/2 Ml Vial Administered 04/17/23 10:05 Dose 4 mg .ROUTE .STK-MED ONE Orphenadrine Citrate 60 mg 04/17/23 10:45 Orphenadrine Citrate 60 Mg/2 Ml Vial IM 04/17/23 10:46 STAT ONE Lab/Rad Data: Laboratory Result Diagrams 04/17/23 09:55 04/17/23 09:55 Laboratory Results 04/17/23 04/17/23 04/17/23 Range/Units 09:55 09:55 09:55 WBC (4.0-10.5) x10^3/uL RBC (4.1-5.4) x10^6/uL Hgb (12.0-16.0) g/dL Hct (35-47) % MCV (78-100) fL MCH (26-32) pg MCHC (32-36) g/dL RDW (11.5-14.0) % Plt Count (150-450) x10^3/uL MPV (7.5-11.0) fL Gran % (36.0-66.0) % Immature Gran % (Auto) (0.00-0.4) % Nucleat RBC Rel Count (0.00-0.1) % Eos # (Auto) (0-0.5) x10^3/uL Immature Gran # (Auto) (0.00-0.03) x10^3u/L Absolute Lymphs (auto) (1.0-4.6) x10^3/uL Absolute Monos (auto) (0.0-1.3) x10^3/uL Absolute Nucleated RBC (0.00-0.01) x10^3u/L Lymphocytes % (24.0-44.0) % Monocytes % (0.0-12.0) % Eosinophils % (0.00-5.0) % Basophils % (0.0-0.4) % Absolute Granulocytes (1.4-6.9) x10^3/uL Basophils # (0-0.4) x10^3/uL D-Dimer 0.35 (0.0-0.50) mg/L Sodium 138 (137-145) mmol/L Potassium 3.8 (3.5-5.1) mmol/L Chloride 107 (98-107) mmol/L Carbon Dioxide 24 (22-30) mmol/L Anion Gap 10.7 (5-15) MEQ/L BUN 12 (7-17) mg/dL Creatinine 0.72 (0.52-1.04) mg/dL Estimated GFR 100.5 ML/MIN Glucose 98 (74-106) mg/dL Calcium 9.8 (8.4-10.2) mg/dL Magnesium 2.1 (1.6-2.3) mg/dL Total Bilirubin 0.60 (0.2-1.3) mg/dL AST 32 (14-36) U/L ALT 43 H (0-35) U/L Alkaline Phosphatase 101 (38-126) U/L Troponin I < 0.012 (0.000-0.034) ng/mL NT-Pro-B Natriuret Pep 39.0 (<300) pg/mL Serum Total Protein 7.6 (6.3-8.2) g/dL Albumin 4.3 (3.5-5.0) g/dL TSH 3rd Generation 0.772 (0.47-4.68) mIU/L 04/17/23 Range/Units 09:55 WBC 8.9 (4.0-10.5) x10^3/uL RBC 5.17 (4.1-5.4) x10^6/uL Hgb 14.8 (12.0-16.0) g/dL Hct 44.5 (35-47) % MCV 86.1 (78-100) fL MCH 28.6 (26-32) pg MCHC 33.3 (32-36) g/dL RDW 14.5 H (11.5-14.0) % Plt Count 384 (150-450) x10^3/uL MPV 9.6 (7.5-11.0) fL Gran % 58.3 (36.0-66.0) % Immature Gran % (Auto) 0.3 (0.00-0.4) % Nucleat RBC Rel Count 0.0 (0.00-0.1) % Eos # (Auto) 0.32 (0-0.5) x10^3/uL Immature Gran # (Auto) 0.03 (0.00-0.03) x10^3u/L Absolute Lymphs (auto) 2.76 (1.0-4.6) x10^3/uL Absolute Monos (auto) 0.54 (0.0-1.3) x10^3/uL Absolute Nucleated RBC 0.00 (0.00-0.01) x10^3u/L Lymphocytes % 30.9 (24.0-44.0) % Monocytes % 6.0 (0.0-12.0) % Eosinophils % 3.6 (0.00-5.0) % Basophils % 0.9 (0.0-0.4) % Absolute Granulocytes 5.20 (1.4-6.9) x10^3/uL Basophils # 0.08 (0-0.4) x10^3/uL D-Dimer (0.0-0.50) mg/L Sodium (137-145) mmol/L Potassium (3.5-5.1) mmol/L Chloride (98-107) mmol/L Carbon Dioxide (22-30) mmol/L Anion Gap (5-15) MEQ/L BUN (7-17) mg/dL Creatinine (0.52-1.04) mg/dL Estimated GFR ML/MIN Glucose (74-106) mg/dL Calcium (8.4-10.2) mg/dL Magnesium (1.6-2.3) mg/dL Total Bilirubin (0.2-1.3) mg/dL AST (14-36) U/L ALT (0-35) U/L Alkaline Phosphatase (38-126) U/L Troponin I (0.000-0.034) ng/mL NT-Pro-B Natriuret Pep (<300) pg/mL Serum Total Protein (6.3-8.2) g/dL Albumin (3.5-5.0) g/dL TSH 3rd Generation (0.47-4.68) mIU/L - Progress Progress: improved, pain not gone completely Progress Note: 04/17/23 10:21 Patient did develop atrial fibrillation rhythm with heart rate around 100 - 140 a minute for 1-2 minutes duration during ER Visit. Further blood test including troponin D-dimer ordered. 04/17/23 10:55 All her labs including D-dimer and troponins are negative. Patient rhythm is back into normal sinus rhythm. Holter monitor applied for 2 weeks. Patient is advised to follow-up with the dealer analyst next week. Counseled pt/family regarding: lab results, diagnosis, need for follow-up, rad results Medical Desision Making - Discussion of managment Reviewed:: Test results, Need for additional workup - Diagnostic Testing Diagnostic test were ordered, analyzed, and reviewed by me: Yes Radiological Interpretation: Reviewed by me - Risk of complications The pt has a mod risk of morbidity or mortality based on: Need for prescription drug management - Departure Departure Disposition: Home Clinical Impression: Right-sided chest pain, Atrial flutter by electrocardiography Condition: Stable Critical Care Time: No Referrals: PILY SWAN MD [Primary Care Provider] - Follow Up with PCP/3 days Instructions: Costochondritis (DC), Atrial Flutter (DC), Atrial Fibrillation and Atrial Flutter ED Additional Instructions: Discharge/Care Plan ROSY AGRAWAL was seen on 04/17/23 in the Emergency Room. The patient was counseled regarding Diagnosis,Lab results, Imaging studies, need for follow up and when to return to the Emergency Room. Prescriptions given: Discharge Note I have spoken with the patient and/or caregivers. I have explained the patient's condition, diagnosis and treatment plan based on the information available to me at this time. I have answered the patient's and/or caregiver's questions and addressed any concerns. The patient and/or caregivers have as good understanding of the patient's diagnosis, condition and treatment plan as can be expected at this point. The vital signs have been stable. The patient's condition is stable and appropriate for discharge from the emergency department. The patient will pursue further outpatient evaluation with the primary care physician or other designated or consulting physician as outlined in the discharge instructions. The patient and/or caregivers are agreeable to this plan of care and follow-up instructions have been explained in detail. The patient and/or caregivers have received these instruction. The patient/and or caregivers are aware that any significant change in condition or worsening of symptoms should prompt an immediate return to this or the closest emergency department or call 911. ROSY AGRAWAL was seen on 04/17/23 n the Emergency Room. At that time you were treated for an emergent condition, during your visit Laboratory, Radiology and/or other procedures may have been ordered. It is very important that you follow-up with your Primary Care Physician PILY SWAN within the next 24-48 hours to review your Emergency Room visit and the final results of testing that was ordered. Some test results such as Urine Cultures, Blood Cultures, and other cultures if ordered will not be finalized for 24-48 hours. If you do not have a Primary Care Provider please call the medical records department at [phone] ext [phone] to obtain a copy of your results or you may sign into our patient portal to obtain these results by visiting us @ [email or web address] and completing the following steps: 1. Click on the Patient Portal link 2. Click the Patient Self Enrollment Link to complete the enrollment form and entering your 3. Once the enrollment form is completed you will receive an email with a temporary ID and password at the email address you provided. 4. Next choose a user name and password. Your user name must be at least 4 characters long and your password must be at least 4 characters long. 5. Choose a security question from the list and provide your answer to the question. If you already have signed into the Health Portal you may access your Health Care Information 04/10 by the following steps: 1. Login to our website @ [email or web address] 2. Enter your original user name and password. FAQS The [facility] Health Portal is an online tool that contains your Lab Results, Radiology Reports, Visit History, Discharge Instructions and Health Summary Lab and Radiology Results will not be available for 72 hours on the portal. The Portal is a secure site, passwords are encryted and URLs are re-written so they cannot be copied and pasted. You and authorized family members are the only ones who can access your Portal. Also there is a timeout feature that protects your information if you leave the Portal page open. If you have technical difficulty please use the Contact Us link on the page this will allow you to submit any questions you have regarding the Portal or you may contact the Medical Record Department at [phone]. Prescriptions: Orphenadrine Citrate 100 mg [Norflex 100 MG Tablet] 100 mg PO BID #20 tab
[2023-04-17] MEDS ORDERED: Sodium Chloride 0.9% 1000 ML 1,000 ML IV SCH (09:45)
[2023-04-17] MEDS ORDERED: Hydromorphone 1 mg/ml Injection IV ONE (09:56)
[2023-04-17] MEDS ORDERED: Zofran 4 MG/2 ML VIAL IV ONE (09:56)
[2023-04-17] MEDS ORDERED: Sodium Chloride 0.9% 1000 ML 1,000 ML ONE (09:58)
[2023-04-17 09:59] LABS: BASOPHIL % 0.9 % (0.0-0.4); Basophil (Absolute #) 0.08 x10^3/uL (0-0.4); Eosinophil % 3.6 % (0.00-5.0); Eosinophil (Absolute #) 0.32 x10^3/uL (0-0.5); Hematocrit 44.5 % (35-47); Hemoglobin 14.8 g/dL (12.0-16.0); IMMATURE GRAN # 0.03 x10^3u/L (0.00-0.03); IMMATURE GRAN % 0.3 % (0.00-0.4); Lymphocyte (Absolute #) 2.76 x10^3/uL (1.0-4.6); Lymphocytes % 30.9 % (24.0-44.0); Mean Cell Volume 86.1 fL (78-100); Mean Corpuscular Hemoglobin 28.6 pg (26-32); Mean Corpuscular Hgb Concent. 33.3 g/dL (32-36); Mean Platelet Volume 9.6 fL (7.5-11.0); Monocyte (Absolute #) 0.54 x10^3/uL (0.0-1.3); Neutrophil % 58.3 % (36.0-66.0); Platelet Count 384 x10^3/uL (150-450); Red Blood Count 5.17 x10^6/uL (4.1-5.4); Red Cell Distribution Width 14.5 % (11.5-14.0); White Blood Count 8.9 x10^3/uL (4.0-10.5)
[2023-04-17] MEDS ORDERED: Zofran 4 MG/2 ML VIAL ONE (10:04)
[2023-04-17] MEDS ORDERED: Hydromorphone 1 mg/ml Injection ONE (10:05)
[2023-04-17 10:12] VITALS: BP 128/49; PULSE 58; RESP 18
[2023-04-17 10:23] VITALS: O2SAT 98
[2023-04-17 10:29] LABS: TROPONIN < 0.012 ng/mL (0.000-0.034)
[2023-04-17] MEDS ORDERED: Norflex 60 MG/2 ML IM ONE (10:45)
[2023-04-17 10:47] LABS: ALBUMIN 4.3 g/dL (3.5-5.0); ALKALINE PHOSPHATASE 101 U/L (38-126); ANION GAP 10.7 MEQ/L (5-15); BLOOD UREA NITROGEN 12 mg/dL (7-17); CHLORIDE 107 mmol/L (98-107); Calcium 9.8 mg/dL (8.4-10.2); Carbon Dioxide 24 mmol/L (22-30); Creatinine 1 0.72 mg/dL (0.52-1.04); EST GLOMERULAR FILTRATION RATE 100.5 ML/MIN; Glucose 98 mg/dL (74-106); MAGNESIUM 2.1 mg/dL (1.6-2.3); Potassium 3.8 mmol/L (3.5-5.1); SGOT/AST 32 U/L (14-36); SGPT/ALT 43 U/L (0-35); SODIUM 138 mmol/L (137-145); TSH, 3RD Generation 0.772 mIU/L (0.47-4.68); Total Protein 7.6 g/dL (6.3-8.2)
[2023-04-17] MEDS ORDERED: Norflex 60 MG/2 ML ONE (10:55)
--- NOTE | 2023-04-17 18:46 | XRAY ---
Indication: Short of breath. Comparison: June 28, 2022 PA/lateral chest again demonstrates CT proven right lower lobe nodule, smaller compared to older chest radiograph March 02, 2022 and favored to be benign. Remaining heart, lungs, and bony thorax normal.
== END 2023-04-17 11:29 | disposition home or self-care (01) ==
LOC: ED 08:56
DX: I48.92 Unspecified atrial flutter (principal); R07.9 Chest pain, unspecified; R06.02 Shortness of breath; Z79.891 Long term (current) use of opiate analgesic; Z79.899 Other long term (current) drug therapy
CPT/HCPCS: 36415; 71046; 80053; 83735; 83880; 84443; 84484; 85025; 85379; 93225; 96372; 96374; 96375; 99284; J1170; J1885; J2060; J2360; J2405

== ENCOUNTER 2023-05-28 08:24 | Emergency (ER) | payer OTHER ==
[2023-05-28 08:35] VITALS: TEMP 96.8
[2023-05-28] MEDS ORDERED: TYLENOL EXTRA STRENGTH 500 MG ONE (08:51)
[2023-05-28] MEDS: TYLENOL EXTRA STRENGTH 500 MG PO STA (08:52)
[2023-05-28] MEDS ORDERED: DUONEB 0.5-3 MG/3 ml Neb IH ONE (08:56)
--- NOTE | 2023-05-28 08:58 | ERPHSYRPT ---
- History of Present Illness Time Seen by Provider: 05/28/23 08:45 Source: patient Exam Limitations: no limitations Patient Subjective Stated Complaint: headache, shortness of breath, cough Triage Nursing Assessment: Pt brought to [facility] by her and then sent to the ER, vitals wnl, rates head and left rib pain as 10/10, pt has had a fever but is afebrile today, cough with white thick sputum, headache, pulses normal, skin n/w/d, lungs clear, pt was brought into the ER in a wheelchair Timing/Duration: day(s) Severity: mild Modifying Factors: Improves With: nothing Associated Symptoms: denies symptoms Allergies/Adverse Reactions: nitrofurantoin [From Macrobid] Allergy (Verified 05/28/23 08:35) Hives Sulfa (Sulfonamide Antibiotics) Allergy (Verified 05/28/23 08:35) Hives shortness of breath ,diaphoretic azithromycin [From Zithromax] Adverse Reaction (Intermediate, Verified 05/28/23 08:35) Nausea and Vomiting naproxen [From Aleve] Adverse Reaction (Verified 05/28/23 08:35) Nausea Home Medications: Losartan Potassium [Cozaar] 25 mg PO DAILY 01/30/20 [History] Hydrocodone/Acetaminophen [Hydrocodone-Acetamin 7.5-325] 1 ea PO DAILY 04/17/23 [History] Hx Tetanus, Diphtheria Vaccination/Date Given: Yes Hx Influenza Vaccination/Date Given: No Hx Pneumococcal Vaccination/Date Given: No Travel Risk - Coronavirus Screening Are you exhibiting any of the following symptoms?: Yes Symptoms: Cough: New Onset, Shortness of Breath, Headaches/Body Aches/Fatigue Close contact with a COVID-19 positive Pt in past 14-21 Days: No - Vaccine Status Have you recieved a Covid-19 vaccination: Yes [employer]: Moderna - Vaccination Dates Date of 2cond Vaccination (if applicable): unk - Review of Systems Eyes: No Symptoms Ears, Nose, & Throat: No Symptoms Respiratory: Cough, Wheezing Cardiac: No Symptoms Abdominal/Gastrointestinal: No Symptoms Genitourinary Symptoms: No Symptoms Musculoskeletal: No Symptoms Skin: No Symptoms Neurological: No Symptoms Psychological: No Symptoms Endocrine: No Symptoms Hematologic/Lymphatic: No Symptoms Immunological/Allergic: No Symptoms - Past Medical History Pertinent Past Medical History: Yes Neurological History: Epilepsy, Migraines, Other (Patient has a history of brain tumor that was resected) ENT History: No Pertinent History Cardiac History: Other Respiratory History: No Pertinent History, Other (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 Ricci), Lumbar Scoliosis, C5-6 Cervial disc Degeneration per 08/31/19 X-Ray, Lumbar Intervertebral disc degeneration, R hip trochanteric bursitis, Chronic Pain Syndrome, L humerus shaft fracture, Lumbar Lordosis (08/31/19 X-Ray), Meralgia paresthetica RLE, Cervicalagia, Iliotibial band syndrome, Hyperprolactinemia, Recent mass in right lung, lymph nodes and thyroid May 2022 - Past Surgical History Past Surgical History: Yes Neuro Surgical History: No Pertinent History Cardiac: No Pertinent History Respiratory: No Pertinent History Gastrointestinal: Appendectomy, Cholecystectomy Female Surgical History: Hysterectomy Other Surgical History: CRANIOTOMY--TUMOR REMOVED. - Female History Hx Now: No (hysterectomy) - Social History Smoking Status: Former smoker How long have you smoked: 30 Exposure to second hand smoke: No Drug Use: none Patient Lives Alone: No - Nursing Vital Signs Nursing Vital Signs: Initial Vital Signs Temperature 96.8 F 05/28/23 08:25 Pulse Rate 92 H 05/28/23 08:25 Respiratory Rate 20 05/28/23 08:25 Blood Pressure 128/72 05/28/23 08:25 O2 Sat by Pulse Oximetry 97 05/28/23 08:25 Pain Scale Pain Intensity 10 - Physical Exam General Appearance: no apparent distress Eye Exam: PERRL/EOMI Ears, Nose, Throat Exam: normal ENT inspection, other (Minimal pharyngeal eryth walter) Neck Exam: normal inspection Respiratory Exam: wheezing, other (Occasional rhonchi) Cardiovascular Exam: regular rate/rhythm Gastrointestinal/Abdomen Exam: soft Pelvic Exam: not done Rectal Exam: not done Neurologic Exam: alert, oriented x 3, cooperative, normal mood/affect Skin Exam: normal color SpO2: 96 Ordered Tests: Active Orders 24 hr Category Date Time Status CHEST WITH CONTRAST [CT] Stat Exams 05/28/23 08:49 Completed HEAD WITHOUT CONTRAST [CT] Stat Exams 05/28/23 08:51 Completed BMP Stat Lab 05/28/23 09:00 Completed CBC W DIFF Stat Lab 05/28/23 09:00 Completed MAGNESIUM Stat Lab 05/28/23 09:00 Completed NT PRO BNPII Stat Lab 05/28/23 09:00 Completed Respiratory Therapy Assessment DAILY RT 05/28/23 09:06 Completed Medication Summary Discontinued Medications Generic Name Dose Route Start Last Admin Trade Name Steph PRN Reason Stop Dose Admin Acetaminophen 500 mg 05/28/23 08:48 05/28/23 08:52 Acetaminophen 500 Mg Tablet PO 05/28/23 08:49 500 mg STAT STA Administration Acetaminophen Confirm 05/28/23 08:51 Acetaminophen 500 Mg Tablet Administered 05/28/23 08:52 Dose 500 mg .ROUTE .STK-MED ONE Albuterol/Ipratropium 3 ml 05/28/23 08:49 05/28/23 09:05 Ipratropium/Albuterol Sulfate 3 Ml Ampul.Neb IH 05/28/23 08:50 3 ml STAT ONE Administration Albuterol/Ipratropium Confirm 05/28/23 08:56 Ipratropium/Albuterol Sulfate 3 Ml Ampul.Neb Administered 05/28/23 08:57 Dose 3 ml IH .STK-MED ONE Methylprednisolone Sodium 0 mg 05/28/23 08:49 05/28/23 09:16 Succinate 125 mg/ Sterile IV 05/28/23 08:50 125 mg Water 2 ml STAT ONE Administration Methylprednisolone Sodium Succinate Confirm 05/28/23 09:13 Methylprednis Sod Succ 125 Mg/2 Ml Vial Administered 05/28/23 09:14 Dose 125 mg .ROUTE .STK-MED ONE Sterile Water Confirm 05/28/23 09:12 Water For Injection,Sterile 10 Ml Vial Administered 05/28/23 09:13 Dose 10 ml IJ .STK-MED ONE Lab/Rad Data: Laboratory Result Diagrams 05/28/23 09:00 05/28/23 09:00 Laboratory Results 05/28/23 05/28/23 05/28/23 Range/Units 09:00 09:00 09:00 WBC 14.8 H (4.0-10.5) x10^3/uL RBC 5.00 (4.1-5.4) x10^6/uL Hgb 14.3 (12.0-16.0) g/dL Hct 43.3 (35-47) % MCV 86.6 (78-100) fL MCH 28.6 (26-32) pg MCHC 33.0 (32-36) g/dL RDW 14.3 H (11.5-14.0) % Plt Count 403 (150-450) x10^3/uL MPV 9.7 (7.5-11.0) fL Gran % 74.8 H (36.0-66.0) % Immature Gran % (Auto) 0.4 (0.00-0.4) % Nucleat RBC Rel Count 0.0 (0.00-0.1) % Eos # (Auto) 0.29 (0-0.5) x10^3/uL Immature Gran # (Auto) 0.06 H (0.00-0.03) x10^3u/L Absolute Lymphs (auto) 2.46 (1.0-4.6) x10^3/uL Absolute Monos (auto) 0.81 (0.0-1.3) x10^3/uL Absolute Nucleated RBC 0.00 (0.00-0.01) x10^3u/L Lymphocytes % 16.6 L (24.0-44.0) % Monocytes % 5.5 (0.0-12.0) % Eosinophils % 2.0 (0.00-5.0) % Basophils % 0.7 (0.0-0.4) % Absolute Granulocytes 11.10 H (1.4-6.9) x10^3/uL Basophils # 0.10 (0-0.4) x10^3/uL Sodium 138 (135-145) mmol/L Potassium 4.7 (3.5-5.1) mmol/L Chloride 107 (98-107) mmol/L Carbon Dioxide 21 L (22-30) mmol/L Anion Gap 14.6 (5-15) MEQ/L BUN 12 (7-17) mg/dL Creatinine 0.63 (0.52-1.04) mg/dL Estimated GFR 106.7 ML/MIN Glucose 102 (74-106) mg/dL Calcium 10.0 (8.4-10.2) mg/dL Magnesium 1.9 (1.6-2.3) mg/dL NT-Pro-B Natriuret Pep 51.8 (<300) pg/mL IMPRESSION: 1. 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 2. The rest of the non-enhanced CT study for the brain is unremarkable. CT scan of the chest reveals no evidence of PE. There is a regression of the lung mass as noted on previous CTs with, the lesions of the liver that remained unchanged in size - Progress Progress: improved (Patient was reevaluated after receiving the DuoNeb's and s teroids, she feels better and wants to go home she will be given 1 dose of Rocephin for treatment of an early bronchitis in the department. She was informed of the need for follow-up) Medical Desision Making - Discussion of managment Reviewed:: Test results Agreed on:: Treatment plan, need for follow-up - Diagnostic Testing Diagnostic test were ordered, analyzed, and reviewed by me: Yes Radiological Interpretation: Reviewed by me - Departure Clinical Impression: Acute bronchitis, Acute bronchospasm Condition: Stable Critical Care Time: No Referrals: PILY SWNA MD [Primary Care Provider] - Follow up/PCP as directed Prescriptions: Amoxicillin 500 mg Cap [Amoxil 500 mg] 500 mg PO TID #30 cap Prednisone 10 mg [Deltasone 10 mg] 10 mg PO TID #12 tablet
[2023-05-28] MEDS: DUONEB 0.5-3 MG/3 ml Neb IH ONE (09:05)
[2023-05-28 09:09] LABS: BASOPHIL % 0.7 % (0.0-0.4); Eosinophil (Absolute #) 0.29 x10^3/uL (0-0.5); Hematocrit 43.3 % (35-47); Hemoglobin 14.3 g/dL (12.0-16.0); IMMATURE GRAN # 0.06 x10^3u/L (0.00-0.03); IMMATURE GRAN % 0.4 % (0.00-0.4); Lymphocyte (Absolute #) 2.46 x10^3/uL (1.0-4.6); Lymphocytes % 16.6 % (24.0-44.0); Mean Cell Volume 86.6 fL (78-100); Mean Corpuscular Hemoglobin 28.6 pg (26-32); Mean Platelet Volume 9.7 fL (7.5-11.0); Monocyte (Absolute #) 0.81 x10^3/uL (0.0-1.3); Monocytes % 5.5 % (0.0-12.0); Neutrophil % 74.8 % (36.0-66.0); Platelet Count 403 x10^3/uL (150-450); Red Cell Distribution Width 14.3 % (11.5-14.0); White Blood Count 14.8 x10^3/uL (4.0-10.5)
[2023-05-28] MEDS ORDERED: Sterile H2O 10 ml IJ ONE (09:12)
[2023-05-28] MEDS ORDERED: solu-MEDROL ONE (09:13)
[2023-05-28] MEDS: solu-MEDROL 125 MG, Sterile H2O 10 ml 2 ML IV ONE (09:16)
[2023-05-28 09:22] LABS: ANION GAP 14.6 MEQ/L (5-15); Creatinine 1 0.63 mg/dL (0.52-1.04); EST GLOMERULAR FILTRATION RATE 106.7 ML/MIN; MAGNESIUM 1.9 mg/dL (1.6-2.3); Potassium 4.7 mmol/L (3.5-5.1)
--- NOTE | 2023-05-28 10:58 | XRAY ---
CLINICAL HISTORY: History of brain tumor TECHNIQUE: An axial non-contrast CT scan of the brain was performed from the skull base to the high parietal region. One of the following dose reduction techniques were utilized for this exam: Automated exposure control, adjustment of the mA and/or kV according to patient size, and use of iterative reconstruction. COMPARISON: None. FINDINGS: Craniotomy defect seen at left high parietal bone with a small area of encephalomalacia/gliosis seen at left high parietal lobe possibly due to previous surgery, no evidence of residual/recurrent lesion seen. The rest of the visualized brain parenchyma shows a normal appearance. Jacobs-white matter differentiation is maintained. No midline shifts or deformity. No intracerebral or extra axial hematoma. Normal size and configuration of the cerebral ventricles. Normal CT appearance of the posterior fossa structures namely the cerebellar hemispheres, brainstem, and cerebellar peduncles. The IACs are unremarkable. The cerebello-pontine angles are clear. Pineal gland calcification was seen. The osseous structures in the skull base are unremarkable. No definite calvarium fractures. The scanned paranasal sinuses are clear. IMPRESSION: 1. 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 2. The rest of the non-enhanced CT study for the brain is unremarkable. Electronically Signed by: Nicole Roman MD. (05/28/2023 10:53:20 EDT)
--- NOTE | 2023-05-28 11:02 | XRAY ---
CLINICAL HISTORY: Dyspnea history of lung tumors TECHNIQUE: Contiguous axial CT images of the chest were acquired with the administration of intravenous contrast 100cc of isovue 370. Coronal and sagittal reconstructions were obtained. COMPARISON: CTA 03/11/2022 FINDINGS: Redemonstration of the right lower lung lobe solid nodule, measuring 1.5x1.4cm which was previously 2.2x2.1cm. There is pleural tethering and a tiny 5 mm subpleural nodule is seen adjacent to the larger lesion. The right hilar lymph node is seen measuring 1.3cm which was previously 1.5cm. A few enlarged mediastinal lymph nodes were seen measuring 1.2cm in the right para-tracheal region which was previously 1.5cm and 0.8cm in the supra-carinal region which was previously of the same size. Again multiple nodules seen in both lobes of the thyroid need ultrasound correlation. The rest of the scanned pulmonary parenchyma shows no definite consolidative lesions. No free or encysted pleural effusion. Heart size is normal, and there is no pericardial effusion. There is no definite mass lesion in the chest wall. Bone window settings revealed no evidence of destructive bone lesion. The scanned upper abdomen shows diffuse fatty infiltration of the liver with a hypodense area in segment V measuring 1x1cm remaining unchanged since the previous and the gall bladder is surgically removed. IMPRESSION: 1. Regressive coures of the size of the right lower lung lobe mass lesion suggesting good response to therapy. 2. The hypodense area in the right lobe of the liver remains unchanged since the previous. Electronically Signed by: Nicole Roman MD. (05/28/2023 10:57:41 EDT)
[2023-05-28 11:08] VITALS: BP 124/70
[2023-05-28] MEDS ORDERED: ROCEPHIN 1 GM / 100 ML NaCl 1 GM/100 ML IVPB IV ONE (11:47)
[2023-05-28] MEDS: ROCEPHIN 1 GM / 100 ML NaCl 1 GM/100 ML IVPB IV ONE (11:48)
[2023-05-28 12:01] VITALS: PULSE 96; RESP 18
[2023-05-28 12:05] VITALS: O2SAT 96
== END 2023-05-28 12:09 | disposition home or self-care (01) ==
LOC: ED 08:24
DX: J20.9 Acute bronchitis, unspecified (principal); R51.9 Headache, unspecified; R06.02 Shortness of breath; R05.9 Cough, unspecified; Z79.52 Long term (current) use of systemic steroids; Z79.891 Long term (current) use of opiate analgesic; Z79.899 Other long term (current) drug therapy
CPT/HCPCS: 36000; 36415; 70450; 71260; 80048; 83735; 83880; 85025; 94640; 96374; 99284; J0696; J2930; A9270-GY

== ENCOUNTER 2023-10-10 14:37 | Emergency (ER) | payer OTHER ==
--- NOTE | 2023-10-10 14:46 | ERPHSYRPT ---
- History of Present Illness Time Seen by Provider: 10/10/23 14:46 Source: patient Exam Limitations: no limitations Physician History: This is a 53-year-old obese white female patient of Dr. Swan who presents with 1 week of bilateral flank pain and epigastric discomfort and associated shortness of breath. 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 Patient also has a history of appendectomy, cholecystectomy and hysterectomy. Patient denies chest pain. She has no known coronary artery disease. Patient has a history of epilepsy, migraine headaches and chronic pain syndrome as well as degenerative disc disease of the lumbar spine and meralgia paresthetica. Patient also has a history of a brain (pituitary) tumor removal in the past. Timing/Duration: week(s) (1) Method of Injury: unknown (No injury) Quality: sharp, stabbing Severity of Pain-Max: moderate Severity of Pain-Current: moderate Associated Symptoms: denies symptoms Previous symptoms: no prior history, no recent treatment Allergies/Adverse Reactions: nitrofurantoin [From Macrobid] Allergy (Verified 10/10/23 14:52) Hives Sulfa (Sulfonamide Antibiotics) Allergy (Verified 10/10/23 14:52) Hives shortness of breath ,diaphoretic azithromycin [From Zithromax] Adverse Reaction (Intermediate, Verified 10/10/23 14:52) Nausea and Vomiting naproxen [From Aleve] Adverse Reaction (Verified 10/10/23 14:52) Nausea Home Medications: Losartan Potassium [Cozaar] 25 mg PO DAILY 01/30/20 [History] Hydrocodone/Acetaminophen [Hydrocodone-Acetamin 7.5-325] 1 ea PO DAILY 04/17/23 [History] Hx Tetanus, Diphtheria Vaccination/Date Given: Yes Hx Influenza Vaccination/Date Given: No Hx Pneumococcal Vaccination/Date Given: No Travel Risk - International Travel Have you traveled outside of the country in past 3 weeks: No - Emerging Infectious Disease Are you exhibiting symptoms associated with any current EIDs: No - Review of Systems Constitutional: No Symptoms Eyes: No Symptoms Ears, Nose, & Throat: No Symptoms Respiratory: No Symptoms Cardiac: No Symptoms Abdominal/Gastrointestinal: Abdominal Pain (Epigastric) Genitourinary Symptoms: Flank Pain (Bilateral flank), No Dysuria, No Vaginal Bleeding, No Vaginal Discharge Musculoskeletal: Back Pain Skin: No Symptoms Neurological: No Symptoms Psychological: No Symptoms Endocrine: No Symptoms Hematologic/Lymphatic: No Symptoms (Bilateral flank) Immunological/Allergic: No Symptoms All Other Systems: Reviewed and Negative - Past Medical History Pertinent Past Medical History: Yes Neurological History: Epilepsy, Migraines, Other (Patient has a history of brain tumor that was resected) ENT History: No Pertinent History Cardiac History: Other Respiratory History: No Pertinent History, Other (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 Ricci), Lumbar Scoliosis, C5-6 Cervial disc Degeneration per 08/31/19 X-Ray, Lumbar Intervertebral disc degeneration, R hip trochanteric bursitis, Chronic Pain Syndrome, L humerus shaft fracture, Lumbar Lordosis (08/31/19 X-Ray), Meralgia paresthetica RLE, Cervicalagia, Iliotibial band syndrome, Hyperprolactinemia, Recent mass in right lung, lymph nodes and thyroid May 2022 - Past Surgical History Past Surgical History: Yes Neuro Surgical History: No Pertinent History Cardiac: No Pertinent History Respiratory: No Pertinent History Gastrointestinal: Appendectomy, Cholecystectomy Female Surgical History: Hysterectomy Other Surgical History: CRANIOTOMY--TUMOR REMOVED. - Social History Smoking Status: Former smoker How long have you smoked: 30 Exposure to second hand smoke: No Drug Use: none Patient Lives Alone: No - Nursing Vital Signs Nursing Vital Signs: Initial Vital Signs Temperature 96.1 F 10/10/23 14:54 Pulse Rate 80 10/10/23 14:54 Respiratory Rate 20 10/10/23 14:54 Blood Pressure 167/77 10/10/23 14:54 O2 Sat by Pulse Oximetry 100 10/10/23 14:54 Pain Scale Pain Intensity 7 - Physical Exam General Appearance: no apparent distress, alert, anxiety, obese Eye Exam: PERRL/EOMI, eyes nml inspection Ears, Nose, Throat Exam: normal ENT inspection, moist mucous membranes Neck Exam: normal inspection, non-tender, supple, full range of motion Respiratory Exam: normal breath sounds, lungs clear, airway intact, No chest tenderness, No respiratory distress Cardiovascular Exam: regular rate/rhythm, normal heart sounds, normal peripheral pulses Gastrointestinal Exam: soft, normal bowel sounds, tenderness (Gastrium), gua rding (Epigastrium to palpation) Pelvic Exam: not done Rectal Exam: not done Back Exam: normal inspection, normal range of motion, CVA tenderness (Bilateral), No vertebral tenderness Extremity Exam: normal inspection, normal range of motion, pelvis stable Neurologic Exam: alert, oriented x 3, cooperative, 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 as tested, nml cerebellar function, nml station & gait, sensation nml Skin Exam: normal color, warm, dry Lymphatic Exam: No adenopathy SpO2 Interpretation: normal O2 Delivery: Room Air - Course Nursing assessment & vital signs reviewed: Yes EKG Interpreted by Me: RATE (62), Sinus Rhythm, NORMAL AXIS, NORMAL INTERVALS, NORMAL QRS, Other (No acute ischemia on today's twelve-lead EKG.) Ordered Tests: Active Orders 24 hr Category Date Time Status EKG-ER Only STAT Care 10/10/23 15:25 Active IV Insertion STAT Care 10/10/23 15:25 Active ABDOMEN AND PELVIS W/0 CONTRAS [CT] Stat Exams 10/10/23 16:20 Completed CHEST WITHOUT CONTRAST [CT] Stat Exams 10/10/23 16:20 Completed AMYLASE Stat Lab 10/10/23 14:55 Completed CBC W DIFF Stat Lab 10/10/23 14:55 Completed CMP Stat Lab 10/10/23 14:55 Completed D-DIMER QUANTITATIVE Stat Lab 10/10/23 14:55 Completed LIPASE Stat Lab 10/10/23 14:55 Completed TROPONIN Q4H Lab 10/10/23 14:55 Completed TROPONIN Q4H Lab 10/10/23 19:30 Ordered TROPONIN Q4H Lab 10/10/23 23:30 Ordered UA W/RFX UR CULTURE Stat Lab 10/10/23 15:30 Completed Medication Summary Generic Name Dose Route Start Last Admin Trade Name Freq PRN Reason Stop Dose Admin Sodium Chloride 1,000 mls @ 100 mls/hr 10/10/23 15:30 10/10/23 15:40 Sodium Chloride 0.9% 1000 Ml IV 11/09/23 15:29 100 mls/hr .Q10H CODY Administration Discontinued Medications Generic Name Dose Route Start Last Admin Trade Name Steph PRN Reason Stop Dose Admin Hydromorphone HCl 1 mg 10/10/23 15:25 10/10/23 15:46 Hydromorphone 1 Mg/1ml Inj IV 10/10/23 15:26 1 mg STAT ONE Administration Hydromorphone HCl Confirm 10/10/23 15:32 Hydromorphone 1 Mg/1ml Inj Administered 10/10/23 15:33 Dose 1 mg .ROUTE .STK-MED ONE Hydromorphone HCl 0.5 mg 10/10/23 17:40 Hydromorphone 1 Mg/1ml Inj IV 10/10/23 17:41 STAT ONE Ondansetron HCl 4 mg 10/10/23 15:25 10/10/23 15:42 Ondansetron Hcl 4 Mg/2 Ml Vial IV 10/10/23 15:26 4 mg STAT ONE Administration Ondansetron HCl Confirm 10/10/23 15:32 Ondansetron Hcl 4 Mg/2 Ml Vial Administered 10/10/23 15:33 Dose 4 mg .ROUTE .STK-MED ONE Lab/Rad Data: Laboratory Result Diagrams 10/10/23 14:55 10/10/23 14:55 Laboratory Results 10/10/23 10/10/23 10/10/23 Range/Units 15:30 14:55 14:55 WBC (3.98-10.04) x10^3/uL RBC (3.93-5.22) x10^6/uL Hgb (11.2-15.7) g/dL Hct (34.1-44.9) % MCV (79.4-94.8) fL MCH (25.6-32.2) pg MCHC (32.2-35.5) g/dL RDW (11.7-14.4) % Plt Count (182-369) x10^3/uL MPV (9.4-12.3) fL Gran % (34.0-71.1) % Immature Gran % (Auto) (0.001-0.429) % Nucleat RBC Rel Count (0.00-0.2) % Eos # (Auto) (0.04-0.36) x10^3/uL Immature Gran # (Auto) (0.001-0.031) x10^3u/L Absolute Lymphs (auto) (1.18-3.74) x10^3/uL Absolute Monos (auto) (0.24-0.86) x10^3/uL Absolute Nucleated RBC (0.00-0.012) x10^3u/L Lymphocytes % (19.3-51.7) % Monocytes % (4.7-12.5) % Eosinophils % (0.7-5.8) % Basophils % (0.1-1.2) % Absolute Granulocytes (1.56-6.13) x10^3/uL Basophils # (0.01-0.08) x10^3/uL D-Dimer 0.33 (0.0-0.50) mg/L Sodium (135-145) mmol/L Potassium (3.5-5.1) mmol/L Chloride (98-107) mmol/L Carbon Dioxide (22-30) mmol/L Anion Gap (5-15) MEQ/L BUN (7-17) mg/dL Creatinine (0.52-1.04) mg/dL Estimated GFR ML/MIN Glucose (74-106) mg/dL Calcium (8.4-10.2) mg/dL Total Bilirubin (0.2-1.3) mg/dL AST (14-36) U/L ALT (0-35) U/L Alkaline Phosphatase (38-126) U/L Troponin I < 0.012 (0.000-0.033) ng/mL Serum Total Protein (6.3-8.2) g/dL Albumin (3.5-5.0) g/dL Amylase (30-110) U/L Lipase (23-300) U/L Urine Color Yellow (Yellow) Urine Appearance Clear (Clear) Urine pH 6.5 (4.6-8.0) Ur Specific [place] <=1.005 (1.005-1.030) Urine Protein Negative (Negative) Urine Glucose (UA) Negative (Negative) mg/dL Urine Ketones Negative (Negative) Urine Blood Negative (Negative) Urine Nitrite Negative (Negative) Urine Bilirubin Negative (Negative) Urine Urobilinogen 0.2 (0.2) mg/dL Ur Leukocyte Esterase Negative (Negative) U Hyaline Cast (Auto) NONE SEEN (0-2) /LPF Urine Microscopic RBC 0-2 (0-5) /HPF Urine Microscopic WBC 0-2 (0-5) /HPF Ur Epithelial Cells None Seen (None Seen) /HPF Urine Bacteria None Seen (None Seen) /HPF Urine Culture Reflexed NO (NO) 10/10/23 10/10/23 Range/Units 14:55 14:55 WBC 11.0 H (3.98-10.04) x10^3/uL RBC 5.40 H (3.93-5.22) x10^6/uL Hgb 15.3 (11.2-15.7) g/dL Hct 46.1 H (34.1-44.9) % MCV 85.4 (79.4-94.8) fL MCH 28.3 (25.6-32.2) pg MCHC 33.2 (32.2-35.5) g/dL RDW 14.0 (11.7-14.4) % Plt Count 412 H (182-369) x10^3/uL MPV 10.2 (9.4-12.3) fL Gran % 61.8 (34.0-71.1) % Immature Gran % (Auto) 0.3 (0.001-0.429) % Nucleat RBC Rel Count 0.0 (0.00-0.2) % Eos # (Auto) 0.21 (0.04-0.36) x10^3/uL Immature Gran # (Auto) 0.03 (0.001-0.031) x10^3u/L Absolute Lymphs (auto) 3.27 (1.18-3.74) x10^3/uL Absolute Monos (auto) 0.61 (0.24-0.86) x10^3/uL Absolute Nucleated RBC 0.00 (0.00-0.012) x10^3u/L Lymphocytes % 29.7 (19.3-51.7) % Monocytes % 5.5 (4.7-12.5) % Eosinophils % 1.9 (0.7-5.8) % Basophils % 0.8 (0.1-1.2) % Absolute Granulocytes 6.79 H (1.56-6.13) x10^3/uL Basophils # 0.09 H (0.01-0.08) x10^3/uL D-Dimer (0.0-0.50) mg/L Sodium 138 (135-145) mmol/L Potassium 4.3 (3.5-5.1) mmol/L Chloride 104 (98-107) mmol/L Carbon Dioxide 23 (22-30) mmol/L Anion Gap 15.8 H (5-15) MEQ/L BUN 14 (7-17) mg/dL Creatinine 0.89 (0.52-1.04) mg/dL Estimated GFR 77.5 ML/MIN Glucose 122 H (74-106) mg/dL Calcium 10.1 (8.4-10.2) mg/dL Total Bilirubin 0.40 (0.2-1.3) mg/dL AST 35 (14-36) U/L ALT 46 H (0-35) U/L Alkaline Phosphatase 86 (38-126) U/L Troponin I (0.000-0.033) ng/mL Serum Total Protein 7.3 (6.3-8.2) g/dL Albumin 4.4 (3.5-5.0) g/dL Amylase 54 (30-110) U/L Lipase 26 (23-300) U/L Urine Color (Yellow) Urine Appearance (Clear) Urine pH (4.6-8.0) Ur Specific [place] (1.005-1.030) Urine Protein (Negative) Urine Glucose (UA) (Negative) mg/dL Urine Ketones (Negative) Urine Blood (Negative) Urine Nitrite (Negative) Urine Bilirubin (Negative) Urine Urobilinogen (0.2) mg/dL Ur Leukocyte Esterase (Negative) U Hyaline Cast (Auto) (0-2) /LPF Urine Microscopic RBC (0-5) /HPF Urine Microscopic WBC (0-5) /HPF Ur Epithelial Cells (None Seen) /HPF Urine Bacteria (None Seen) /HPF Urine Culture Reflexed (NO) - Progress Progress: improved, pain not gone completely Progress Note: 10/10/23 15:35 My medical decision making and the assignment of moderate complexity to this patient's medical issue today is based on review of the patient's past medical history, review the patient's medication list, review of patient drug allergy list, history present illness and physical findings on examination. The workup in this patient includes placement of an intravenous line, infusion of normal saline solution, amylase, lipase, urinalysis, CBC, CMP, twelve-lead EKG, troponin level, D-dimer level. Depending on the results of the D-dimer, the patient will have a CT scan of the abdomen pelvis without contrast and either CT scan of the chest with or without contrast. The differential diagnosis includes but is not limited to pulmonary embolus, recurrent lung tumor, acute intra-abdominal abnormality, muscle skeletal pain, myocardial infarction 10/10/23 17:21 I interpreted the patient's laboratory data results. Based on the laboratory data results, the patient does not have any acute, emergent medical issue. CT scan of the chest without contrast was interpreted by the radiologist and compared to a prior CT scan of the chest dated 05/28/2023. There is a stable cluster of indeterminate right lower lobe noncalcified nodules. There is no new or acute findings. The CT scan of the abdomen pelvis without contrast was compared to similar study dated 01/01/2022. It was interpreted by the radiologist and I reviewed the impression. Impression states no new or acute findings. There are stable small hepatic cysts/hemangiomas. There is no evidence of free air or free fluid. 10/10/23 17:46 Patient has hydrocodone 5/325 at home Counseled pt/family regarding: lab results, diagnosis, need for follow-up, rad results Medical Desision Making - Independent Historian Additional History obtained from: Spouse - Diagnostic Testing Diagnostic test were ordered, analyzed, and reviewed by me: Yes Radiological Interpretation: Reviewed by me, Teleradiologist Report - Risk of complications Low Risk: Low risk of morbidity from additional dx testing or treatment - Departure Departure Disposition: Home Clinical Impression: Bilateral flank pain Condition: Stable Critical Care Time: No Referrals: PILY SWAN MD [Primary Care Provider] - Follow up/PCP as directed Additional Instructions: Drink plenty of fluids. Take your medications as prescribed. Call your primary care provider, billing specialist/oncologist tomorrow, 10/11/2023, to make arrangements for follow-up appointment for further evaluation management and to be seen in the next 3 to 5 days.
[2023-10-10 15:01] VITALS: RESP 20; TEMP 96.1
[2023-10-10] MEDS ORDERED: Zofran 4 MG/2 ML VIAL ONE (15:32)
[2023-10-10] MEDS ORDERED: Hydromorphone 1 mg/ml Injection ONE ×2 (15:32→17:49)
[2023-10-10] MEDS ORDERED: Sodium Chloride 0.9% 1000 ML 1,000 ML ONE (15:33)
[2023-10-10 15:40] VITALS: BP 160/78; PULSE 65; O2SAT 98
[2023-10-10 15:40] LABS: Absolute Neutrophil Ct (ANC) 6.79 x10^3/uL (1.56-6.13); BASOPHIL % 0.8 % (0.1-1.2); Basophil (Absolute #) 0.09 x10^3/uL (0.01-0.08); Eosinophil % 1.9 % (0.7-5.8); Eosinophil (Absolute #) 0.21 x10^3/uL (0.04-0.36); Hematocrit 46.1 % (34.1-44.9); Hemoglobin 15.3 g/dL (11.2-15.7); IMMATURE GRAN # 0.03 x10^3u/L (0.001-0.031); IMMATURE GRAN % 0.3 % (0.001-0.429); Lymphocyte (Absolute #) 3.27 x10^3/uL (1.18-3.74); Lymphocytes % 29.7 % (19.3-51.7); Mean Cell Volume 85.4 fL (79.4-94.8); Mean Corpuscular Hemoglobin 28.3 pg (25.6-32.2); Mean Corpuscular Hgb Concent. 33.2 g/dL (32.2-35.5); Mean Platelet Volume 10.2 fL (9.4-12.3); Monocyte (Absolute #) 0.61 x10^3/uL (0.24-0.86); Monocytes % 5.5 % (4.7-12.5); Neutrophil % 61.8 % (34.0-71.1); Platelet Count 412 x10^3/uL (182-369)
[2023-10-10] MEDS: Sodium Chloride 0.9% 1000 ML 1,000 ML IV SCH (15:40)
[2023-10-10] MEDS: Zofran 4 MG/2 ML VIAL IV ONE (15:42)
[2023-10-10] MEDS: Hydromorphone 1 mg/ml Injection IV ONE ×2 (15:46→17:53)
[2023-10-10 15:48] LABS: ADD URINE CULTURE? NO (NO); Appearance Clear (Clear); Bacteria None Seen /HPF (None Seen); Bilirubin Negative (Negative); Blood Negative (Negative); Epithelial Cells None Seen /HPF (None Seen); Glucose, Urine Negative (Negative); Hyaline Casts NONE SEEN /LPF (0-2); Ketones Negative (Negative); Leukocyte Esterase Negative (Negative); Nitrite Negative (Negative); Ph 6.5 (4.6-8.0); Protein,Urine Dip Negative (Negative); RBC 0-2 /HPF (0-5); Specific Gravity <=1.005 (1.005-1.030); Urobilinogen 0.2 mg/dL (0.2); WBC 0-2 /HPF (0-5)
[2023-10-10 15:52] LABS: ALBUMIN 4.4 g/dL (3.5-5.0); ANION GAP 15.8 MEQ/L (5-15); BILIRUBIN,TOTAL 0.4 mg/dL (0.2-1.3); Calcium 10.1 mg/dL (8.4-10.2); Creatinine 1 0.89 mg/dL (0.52-1.04); EST GLOMERULAR FILTRATION RATE 77.5 ML/MIN; Potassium 4.3 mmol/L (3.5-5.1); Total Protein 7.3 g/dL (6.3-8.2)
--- NOTE | 2023-10-10 16:54 | XRAY ---
Indication: Short of breath. Bilateral flank pain. Epigastric pain. Multiple contiguous axial images obtained through the chest without contrast. Comparison: May 28, 2023 Minimal bilateral dependent atelectasis. Peripheral right lower lobe again demonstrates 5 cluster of noncalcified nodules unchanged in size and number. Largest index nodule measures 1.5 cm. No new pulmonary mass/nodule, infiltrate, or effusion. Heart not enlarged again with minimal corner calcifications. Aorta again minimally arteriosclerotic without aneurysm. No pathologic mediastinal lymphadenopathy. Bony thorax intact. CT abdomen/pelvis reported separately. Impression: Stable cluster of indeterminate right lower lobe noncalcified nodules and minimal arteriosclerotic disease. No new/acute findings on this noncontrast exam.
--- NOTE | 2023-10-10 16:58 | XRAY ---
Indication: Short of breath. Bilateral flank pain. Epigastric pain. Multiple contiguous axial images obtained through the abdomen and pelvis without contrast. Comparison: January 01, 2022 CT chest reported separately. Noncontrasted stomach and bowel loops nonobstructed. Again appendectomy, cholecystomy, and partial hysterectomy. Stable small/scarred right kidney and small hepatic cysts/hemangiomas. No free fluid/air. Remaining liver, pancreas, spleen, adrenal glands, kidneys, ureters, and bladder are unremarkable for noncontrast exam. There remains mild scattered aortoiliac calcifications without AAA. Osseous structures intact. Impression: Stable small hepatic cysts/hemangiomas, small/scarred right kidney, and arteriosclerotic disease. No new/acute findings on this noncontrast exam.
== END 2023-10-10 18:17 | disposition home or self-care (01) ==
LOC: ED 14:37
DX: R10.9 Unspecified abdominal pain (principal); R10.13 Epigastric pain; R06.02 Shortness of breath; Z79.891 Long term (current) use of opiate analgesic; Z79.899 Other long term (current) drug therapy
CPT/HCPCS: 36000; 36415; 71250; 74176; 80053; 81001; 82150; 83690; 84484; 85025; 85379; 93005; 96374; 96376; 99284; J1170; J2405

== ENCOUNTER 2023-10-31 07:07 | Emergency (ER) | payer OTHER ==
--- NOTE | 2023-10-31 07:21 | ERPHSYRPT ---
- History of Present Illness Time Seen by Provider: 10/31/23 07:20 Source: patient Exam Limitations: no limitations Patient Subjective Stated Complaint: pt here for a fever since tuesday. took tylenol at , co aches Triage Nursing Assessment: . Physician History: This is an overweight, 53-year-old white female patient of Dr. Swan who arrives by private vehicle and has a complaint of worsening fever, body aches and headache since 10/28/2023. Approximately 1 hour prior to arrival, patient took 2 500 mg Tylenol orally. Patient has no known exposure to individuals similar symptoms. She does not have chest pain. She denies cough. She denies shortness of breath. She has no abdominal pain. She has had no vomiting or diarrhea symptoms. Patient has a history of hypertension, seizure disorder, migraine headaches, osteoarthritis, and chronic pain syndrome. Timing/Duration: day(s) (3), worse Fever Severity: mild Associated Symptoms: headache, muscle aches, sore throat, weakness, No abdominal pain, No chest pain, No nausea/vomiting, No shortness of breath, No stiff neck Allergies/Adverse Reactions: nitrofurantoin [From Macrobid] Allergy (Verified 10/31/23 07:15) Hives Sulfa (Sulfonamide Antibiotics) Allergy (Verified 10/31/23 07:15) Hives shortness of breath ,diaphoretic azithromycin [From Zithromax] Adverse Reaction (Intermediate, Verified 10/31/23 07:15) Nausea and Vomiting naproxen [From Aleve] Adverse Reaction (Verified 10/31/23 07:15) Nausea Home Medications: Losartan Potassium [Cozaar] 25 mg PO DAILY 01/30/20 [History] Hydrocodone/Acetaminophen [Hydrocodone-Acetamin 7.5-325] 1 ea PO DAILY 04/17/23 [History] Hx Tetanus, Diphtheria Vaccination/Date Given: No Hx Influenza Vaccination/Date Given: No Hx Pneumococcal Vaccination/Date Given: No Immunizations Up to Date: Yes Travel Risk - International Travel Have you traveled outside of the country in past 3 weeks: No - Emerging Infectious Disease Are you exhibiting symptoms associated with any current EIDs: Yes Symptoms: Fever, Headaches/Body Aches/ - Review of Systems Constitutional: Fever, Weakness Eyes: No Symptoms Ears, Nose, & Throat: No Symptoms Respiratory: No Symptoms Cardiac: No Symptoms Abdominal/Gastrointestinal: No Symptoms Genitourinary Symptoms: No Symptoms Musculoskeletal: Arthralgias, Myalgias Skin: No Symptoms Neurological: Headache Psychological: No Symptoms Endocrine: No Symptoms Hematologic/Lymphatic: No Symptoms Immunological/Allergic: No Symptoms All Other Systems: Reviewed and Negative - Past Medical History Pertinent Past Medical History: Yes Neurological History: Epilepsy, Migraines, Other ENT History: No Pertinent History Cardiac History: Other Respiratory History: No Pertinent History, Other Endocrine Medical History: No Pertinent History, Other Musculoskeletal History: No Pertinent History, Osteoarthritis, Other GI Medical History: No Pertinent History, Gallbladder Disease, Other History: Other Psycho-Social History: No Pertinent History Female Reproductive Disorders: Endometriosis Other Medical History: Pituitary tumor, benign brain tumor (current), craniotomy for tumor on the brain (2006), hysterectomy, appendectomy, cholecystectomy, R hip nerve release (05/2016, Dr. Ricci), Lumbar Scoliosis, C5-6 Cervial disc Degeneration per 08/31/19 X-Ray, Lumbar Intervertebral disc degeneration, R hip trochanteric bursitis, Chronic Pain Syndrome, L humerus shaft fracture, Lumbar Lordosis (08/31/19 X-Ray), Meralgia paresthetica RLE, Cervicalagia, Iliotibial band syndrome, Hyperprolactinemia, Recent mass in right lung, lymph nodes and thyroid May 2022 - Past Surgical History Past Surgical History: Yes Neuro Surgical History: No Pertinent History Cardiac: No Pertinent History Respiratory: No Pertinent History Gastrointestinal: Appendectomy, Cholecystectomy Female Surgical History: Hysterectomy Other Surgical History: CRANIOTOMY--TUMOR REMOVED. - Female History Hx Last Menstrual Period: post Hx Now: No - Social History Smoking Status: Former smoker How long have you smoked: 30 Exposure to second hand smoke: No Drug Use: none Patient Lives Alone: No - Social Determinants of Health Will the patient participate in the screening: Declined to provide - Nursing Vital Signs Nursing Vital Signs: Initial Vital Signs Pulse Rate 104 H 10/31/23 07:13 Blood Pressure 149/92 10/31/23 07:13 O2 Sat by Pulse Oximetry 95 10/31/23 07:13 Pain Scale Pain Intensity 4 - Physical Exam General Appearance: mild distress, alert, anxiety, obese Eye Exam: PERRL/EOMI, eyes nml inspection ENT Exam: normal ENT inspection, no apparent trauma, hearing grossly normal, TMs normal, pharyngeal erythema (Mild), airway intact, No muffled/hoarse voice Neck Exam: normal inspection, non-tender, supple, full range of motion, trachea midline, No Kernig's sign, No meningismus Respiratory Exam: normal breath sounds, chest non-tender, lungs clear, no respiratory distress, no accessory muscle use, No respiratory distress Cardiovascular/Chest Exam: normal heart sounds, regular rate/rhythm Gastrointestinal/Abdominal Exam: soft, non tender, no distention, no mass, no guarding, no ecchymosis, no organomegaly, no pulsatile mass, normal bowel sounds Pelvic Exam: not done Rectal Exam: not done Extremity Exam: non-tender, normal range of motion, normal inspection, no calf tenderness, no pedal edema, pelvis stable Neurologic Exam: alert, oriented x 3, cooperative, reliability technician II-XII nml as tested, sensation nml Skin Exam: normal color, warm, dry Lymphatic: No adenopathy SpO2 Interpretation: normal O2 Delivery: Room Air - Course Nursing assessment & vital signs reviewed: Yes Ordered Tests: Active Orders 24 hr Category Date Time Status IV Insertion STAT Care 10/31/23 07:27 Active Pulse Oximetry (ED) STAT Care 10/31/23 07:27 Active CHEST 1 VIEW (PORTABLE) Stat Exams 10/31/23 07:27 Completed HEAD WITHOUT CONTRAST [CT] Stat Exams 10/31/23 09:16 Completed BLOOD CULTURE Stat Lab 10/31/23 08:24 Received CBC W DIFF Stat Lab 10/31/23 07:27 Completed CMP Stat Lab 10/31/23 07:35 Completed Lactic Acid Stat Lab 10/31/23 07:35 Completed MONO SCREEN Stat Lab 10/31/23 07:35 Completed UA W/RFX UR CULTURE Stat Lab 10/31/23 08:19 Completed Medication Summary Discontinued Medications Generic Name Dose Route Start Last Admin Trade Name Freq PRN Reason Stop Dose Admin Hydrocodone Bitart/Acetaminophen 10 ml 10/31/23 07:27 10/31/23 07:37 Hydrocodone/Acetaminophen 5 Ml Udcup PO 10/31/23 07:28 Not Given STAT STA Guaifenesin/Codeine Phosphate 10 ml 10/31/23 07:51 10/31/23 07:56 Guaifenesin/Codeine Phosphate 5 Ml Udcup PO 10/31/23 07:52 10 ml STAT ONE Administration Guaifenesin/Codeine Phosphate Confirm 10/31/23 07:55 Guaifenesin/Codeine Phosphate 5 Ml Udcup Administered 10/31/23 07:56 Dose 10 ml .ROUTE .STK-MED ONE Hydromorphone HCl 1 mg 10/31/23 09:17 10/31/23 09:23 Hydromorphone 1 Mg/1ml Inj IV 10/31/23 09:18 1 mg STAT ONE Administration Hydromorphone HCl Confirm 10/31/23 09:22 Hydromorphone 1 Mg/1ml Inj Administered 10/31/23 09:23 Dose 1 mg .ROUTE .STK-MED ONE Sodium Chloride 1,000 mls @ 999 mls/hr 10/31/23 07:27 10/31/23 08:59 Sodium Chloride 0.9% 1000 Ml IV 10/31/23 08:27 Infused .Q1H1M STA Infusion Sodium Chloride Confirm 10/31/23 07:38 Sodium Chloride 0.9% 1000 Ml Administered 10/31/23 07:39 Dose 1,000 mls @ ud .ROUTE .STK-MED ONE Ondansetron HCl 4 mg 10/31/23 09:17 10/31/23 09:23 Ondansetron Hcl 4 Mg/2 Ml Vial IV 10/31/23 09:18 4 mg STAT ONE Administration Ondansetron HCl Confirm 10/31/23 09:22 Ondansetron Hcl 4 Mg/2 Ml Vial Administered 10/31/23 09:23 Dose 4 mg .ROUTE .STK-MED ONE Lab/Rad Data: Laboratory Result Diagrams 10/31/23 07:27 10/31/23 07:35 Laboratory Results 10/31/23 10/31/23 10/31/23 Range/Units 08:19 08:00 07:58 WBC (3.98-10.04) x10^3/uL RBC (3.93-5.22) x10^6/uL Hgb (11.2-15.7) g/dL Hct (34.1-44.9) % MCV (79.4-94.8) fL MCH (25.6-32.2) pg MCHC (32.2-35.5) g/dL RDW (11.7-14.4) % Plt Count (182-369) x10^3/uL MPV (9.4-12.3) fL Gran % (34.0-71.1) % Immature Gran % (Auto) (0.001-0.429) % Nucleat RBC Rel Count (0.00-0.2) % Eos # (Auto) (0.04-0.36) x10^3/uL Immature Gran # (Auto) (0.001-0.031) x10^3u/L Absolute Lymphs (auto) (1.18-3.74) x10^3/uL Absolute Monos (auto) (0.24-0.86) x10^3/uL Absolute Nucleated RBC (0.00-0.012) x10^3u/L Lymphocytes % (19.3-51.7) % Monocytes % (4.7-12.5) % Eosinophils % (0.7-5.8) % Basophils % (0.1-1.2) % Absolute Granulocytes (1.56-6.13) x10^3/uL Basophils # (0.01-0.08) x10^3/uL Sodium (135-145) mmol/L Potassium (3.5-5.1) mmol/L Chloride (98-107) mmol/L Carbon Dioxide (22-30) mmol/L Anion Gap (5-15) MEQ/L BUN (7-17) mg/dL Creatinine (0.52-1.04) mg/dL Estimated GFR ML/MIN Glucose (74-106) mg/dL Lactic Acid (0.4-2.0) Calcium (8.4-10.2) mg/dL Total Bilirubin (0.2-1.3) mg/dL AST (14-36) U/L ALT (0-35) U/L Alkaline Phosphatase (38-126) U/L Serum Total Protein (6.3-8.2) g/dL Albumin (3.5-5.0) g/dL Urine Color Yellow (Yellow) Urine Appearance Clear (Clear) Urine pH 7.0 (4.6-8.0) Ur Specific Duff <=1.005 (1.005-1.030) Urine Protein Negative (Negative) Urine Glucose (UA) Negative (Negative) mg/dL Urine Ketones Negative (Negative) Urine Blood Negative (Negative) Urine Nitrite Negative (Negative) Urine Bilirubin Negative (Negative) Urine Urobilinogen 0.2 (0.2) mg/dL Ur Leukocyte Esterase Negative (Negative) U Hyaline Cast (Auto) NONE SEEN (0-2) /LPF Urine Microscopic RBC 0-2 (0-5) /HPF Urine Microscopic WBC 0-2 (0-5) /HPF Ur Epithelial Cells None Seen (None Seen) /HPF Urine Bacteria None Seen (None Seen) /HPF Urine Culture Reflexed NO (NO) Monoscreen (NEGATIVE) Influenza Type A Ag NEGATIVE (NEGATIVE) Influenza Type B Ag NEGATIVE (NEGATIVE) RSV (PCR) NEGATIVE (NEGATIVE) SARS-CoV-2 (PCR) NEGATIVE (NEGATIVE) Group A Strep Antibody NOT DETECTED (NEGATIVE) 10/31/23 10/31/23 10/31/23 Range/Units 07:35 07:35 07:35 WBC (3.98-10.04) x10^3/uL RBC (3.93-5.22) x10^6/uL Hgb (11.2-15.7) g/dL Hct (34.1-44.9) % MCV (79.4-94.8) fL MCH (25.6-32.2) pg MCHC (32.2-35.5) g/dL RDW (11.7-14.4) % Plt Count (182-369) x10^3/uL MPV (9.4-12.3) fL Gran % (34.0-71.1) % Immature Gran % (Auto) (0.001-0.429) % Nucleat RBC Rel Count (0.00-0.2) % Eos # (Auto) (0.04-0.36) x10^3/uL Immature Gran # (Auto) (0.001-0.031) x10^3u/L Absolute Lymphs (auto) (1.18-3.74) x10^3/uL Absolute Monos (auto) (0.24-0.86) x10^3/uL Absolute Nucleated RBC (0.00-0.012) x10^3u/L Lymphocytes % (19.3-51.7) % Monocytes % (4.7-12.5) % Eosinophils % (0.7-5.8) % Basophils % (0.1-1.2) % Absolute Granulocytes (1.56-6.13) x10^3/uL Basophils # (0.01-0.08) x10^3/uL Sodium 137 (135-145) mmol/L Potassium 4.0 (3.5-5.1) mmol/L Chloride 103 (98-107) mmol/L Carbon Dioxide 23 (22-30) mmol/L Anion Gap 16.2 H (5-15) MEQ/L BUN 12 (7-17) mg/dL Creatinine 0.87 (0.52-1.04) mg/dL Estimated GFR 79.6 ML/MIN Glucose 131 H (74-106) mg/dL Lactic Acid 1.1 (0.4-2.0) Calcium 9.6 (8.4-10.2) mg/dL Total Bilirubin 0.50 (0.2-1.3) mg/dL AST 29 (14-36) U/L ALT 41 H (0-35) U/L Alkaline Phosphatase 100 (38-126) U/L Serum Total Protein 8.0 (6.3-8.2) g/dL Albumin 4.5 (3.5-5.0) g/dL Urine Color (Yellow) Urine Appearance (Clear) Urine pH (4.6-8.0) Ur Specific Duff (1.005-1.030) Urine Protein (Negative) Urine Glucose (UA) (Negative) mg/dL Urine Ketones (Negative) Urine Blood (Negative) Urine Nitrite (Negative) Urine Bilirubin (Negative) Urine Urobilinogen (0.2) mg/dL Ur Leukocyte Esterase (Negative) U Hyaline Cast (Auto) (0-2) /LPF Urine Microscopic RBC (0-5) /HPF Urine Microscopic WBC (0-5) /HPF Ur Epithelial Cells (None Seen) /HPF Urine Bacteria (None Seen) /HPF Urine Culture Reflexed (NO) Monoscreen NEGATIVE (NEGATIVE) Influenza Type A Ag (NEGATIVE) Influenza Type B Ag (NEGATIVE) RSV (PCR) (NEGATIVE) SARS-CoV-2 (PCR) (NEGATIVE) Group A Strep Antibody (NEGATIVE) 10/31/23 Range/Units 07:27 WBC 15.7 H (3.98-10.04) x10^3/uL RBC 5.37 H (3.93-5.22) x10^6/uL Hgb 15.4 (11.2-15.7) g/dL Hct 45.1 H (34.1-44.9) % MCV 84.0 (79.4-94.8) fL MCH 28.7 (25.6-32.2) pg MCHC 34.1 (32.2-35.5) g/dL RDW 14.6 H (11.7-14.4) % Plt Count 397 H (182-369) x10^3/uL MPV 10.5 (9.4-12.3) fL Gran % 80.7 H (34.0-71.1) % Immature Gran % (Auto) 0.3 (0.001-0.429) % Nucleat RBC Rel Count 0.0 (0.00-0.2) % Eos # (Auto) 0.08 (0.04-0.36) x10^3/uL Immature Gran # (Auto) 0.05 H (0.001-0.031) x10^3u/L Absolute Lymphs (auto) 1.96 (1.18-3.74) x10^3/uL Absolute Monos (auto) 0.87 H (0.24-0.86) x10^3/uL Absolute Nucleated RBC 0.00 (0.00-0.012) x10^3u/L Lymphocytes % 12.5 L (19.3-51.7) % Monocytes % 5.5 (4.7-12.5) % Eosinophils % 0.5 L (0.7-5.8) % Basophils % 0.5 (0.1-1.2) % Absolute Granulocytes 12.66 H (1.56-6.13) x10^3/uL Basophils # 0.08 (0.01-0.08) x10^3/uL Sodium (135-145) mmol/L Potassium (3.5-5.1) mmol/L Chloride (98-107) mmol/L Carbon Dioxide (22-30) mmol/L Anion Gap (5-15) MEQ/L BUN (7-17) mg/dL Creatinine (0.52-1.04) mg/dL Estimated GFR ML/MIN Glucose (74-106) mg/dL Lactic Acid (0.4-2.0) Calcium (8.4-10.2) mg/dL Total Bilirubin (0.2-1.3) mg/dL AST (14-36) U/L ALT (0-35) U/L Alkaline Phosphatase (38-126) U/L Serum Total Protein (6.3-8.2) g/dL Albumin (3.5-5.0) g/dL Urine Color (Yellow) Urine Appearance (Clear) Urine pH (4.6-8.0) Ur Specific Duff (1.005-1.030) Urine Protein (Negative) Urine Glucose (UA) (Negative) mg/dL Urine Ketones (Negative) Urine Blood (Negative) Urine Nitrite (Negative) Urine Bilirubin (Negative) Urine Urobilinogen (0.2) mg/dL Ur Leukocyte Esterase (Negative) U Hyaline Cast (Auto) (0-2) /LPF Urine Microscopic RBC (0-5) /HPF Urine Microscopic WBC (0-5) /HPF Ur Epithelial Cells (None Seen) /HPF Urine Bacteria (None Seen) /HPF Urine Culture Reflexed (NO) Monoscreen (NEGATIVE) Influenza Type A Ag (NEGATIVE) Influenza Type B Ag (NEGATIVE) RSV (PCR) (NEGATIVE) SARS-CoV-2 (PCR) (NEGATIVE) Group A Strep Antibody (NEGATIVE) - Progress Progress: improved, pain not gone completely, re-examined Progress Note: 10/31/23 08:22 My medical decision making and the assignment of moderate complexity to this patient's medical issue today is based on review of the patient's past medical history, review of the patient's medication list, review of patient drug allergy list, history present illness and physical findings on examination. The workup in this patient includes intravenous line placement, infusion of normal saline solution, CBC, CMP, viral swabs, monotest, urinalysis, chest x-ray. We will also provide her with an elixir of Robitussin AC to provide her relief of her sore throat, headache and bodyaches. Differential diagnosis includes but is not limited to viral illness, group A strep pharyngitis, pneumonia, urinary tract infection 10/31/23 09:15 The chest x-ray was interpreted by the radiologist and I reviewed the impression. The impression straits no new/acute findings. There are stable right lower lobe nodule. 08/19/24 10:41 CT scan of the head without contrast was interpreted by the radiologist and I reviewed the impression. The impression shows mild paranasal sinus disease. There is a left parietal craniotomy present. Remaining CT scan of the head without contrast exam continues to be normal Counseled pt/family regarding: lab results, diagnosis, need for follow-up, rad results Medical Desision Making - Diagnostic Testing Diagnostic test were ordered, analyzed, and reviewed by me: Yes Radiological Interpretation: Reviewed by me, Teleradiologist Report - Risk of complications The pt has a mod risk of morbidity or mortality based on: Need for prescription drug management - Departure Departure Disposition: Home Clinical Impression: Sinusitis, Headache, Leukocytosis Condition: Stable Critical Care Time: No Referrals: PILY SWAN MD [Primary Care Provider] - Follow up/PCP as directed Additional Instructions: Take your medications as prescribed. Use your home hydrocodone medication for pain control. Return to the emergency department on 11/01/2023 before noon for reassessment. Return to the emergency department earlier if symptoms worsen. Prescriptions: Amoxicillin 500 mg Cap [Amoxil 500 mg] 500 mg PO TID #30 cap
[2023-10-31 07:22] VITALS: TEMP 97.2
[2023-10-31] MEDS: HYDROCODONE-ACETAMIN 2.5-108/5 ML SOLUTION PO STA (07:37)
[2023-10-31] MEDS ORDERED: Sodium Chloride 0.9% 1000 ML 1,000 ML ONE (07:38)
[2023-10-31] MEDS: Sodium Chloride 0.9% 1000 ML 1,000 ML IV STA (07:39)
[2023-10-31] MEDS ORDERED: Robitussin AC Syrup Unit Dose Cup ONE (07:55)
[2023-10-31] MEDS: Robitussin AC Syrup Unit Dose Cup PO ONE (07:56)
[2023-10-31 08:13] LABS: Absolute Neutrophil Ct (ANC) 12.66 x10^3/uL (1.56-6.13); BASOPHIL % 0.5 % (0.1-1.2); Basophil (Absolute #) 0.08 x10^3/uL (0.01-0.08); Eosinophil % 0.5 % (0.7-5.8); Eosinophil (Absolute #) 0.08 x10^3/uL (0.04-0.36); Hematocrit 45.1 % (34.1-44.9); Hemoglobin 15.4 g/dL (11.2-15.7); IMMATURE GRAN # 0.05 x10^3u/L (0.001-0.031); IMMATURE GRAN % 0.3 % (0.001-0.429); Lymphocyte (Absolute #) 1.96 x10^3/uL (1.18-3.74); Lymphocytes % 12.5 % (19.3-51.7); Mean Corpuscular Hemoglobin 28.7 pg (25.6-32.2); Mean Corpuscular Hgb Concent. 34.1 g/dL (32.2-35.5); Mean Platelet Volume 10.5 fL (9.4-12.3); Monocyte (Absolute #) 0.87 x10^3/uL (0.24-0.86); Monocytes % 5.5 % (4.7-12.5); Neutrophil % 80.7 % (34.0-71.1); Platelet Count 397 x10^3/uL (182-369); Red Blood Count 5.37 x10^6/uL (3.93-5.22); Red Cell Distribution Width 14.6 % (11.7-14.4); White Blood Count 15.7 x10^3/uL (3.98-10.04)
[2023-10-31 08:20] VITALS: RESP 16
[2023-10-31 08:34] LABS: ALBUMIN 4.5 g/dL (3.5-5.0); ANION GAP 16.2 MEQ/L (5-15); BILIRUBIN,TOTAL 0.5 mg/dL (0.2-1.3); Calcium 9.6 mg/dL (8.4-10.2); Creatinine 1 0.87 mg/dL (0.52-1.04); EST GLOMERULAR FILTRATION RATE 79.6 ML/MIN
[2023-10-31 08:39] LABS: Appearance Clear (Clear); Bacteria None Seen /HPF (None Seen); Bilirubin Negative (Negative); Blood Negative (Negative); Epithelial Cells None Seen /HPF (None Seen); Glucose, Urine Negative (Negative); Hyaline Casts NONE SEEN /LPF (0-2); Ketones Negative (Negative); Leukocyte Esterase Negative (Negative); Nitrite Negative (Negative); Protein,Urine Dip Negative (Negative); RBC 0-2 /HPF (0-5); Specific Gravity <=1.005 (1.005-1.030); Urobilinogen 0.2 mg/dL (0.2); WBC 0-2 /HPF (0-5)
[2023-10-31 08:40] LABS: ADD URINE CULTURE? NO (NO)
[2023-10-31 08:50] LABS: INFLUENZA A NEGATIVE (NEGATIVE); INFLUENZA B NEGATIVE (NEGATIVE); RESPIRATORY SYNCTIAL VIRUS NEGATIVE (NEGATIVE); SARS-CoV-2 Xpert Express NEGATIVE (NEGATIVE)
--- NOTE | 2023-10-31 08:56 | XRAY ---
Indication: Fever. Comparison: April 17, 2023 Portable chest again demonstrates stable CT proven right lower lobe nodule. Remaining heart and lungs unremarkable. Bony thorax intact. No new/acute findings.
[2023-10-31] MEDS ORDERED: Hydromorphone 1 mg/ml Injection ONE (09:22)
[2023-10-31] MEDS ORDERED: Zofran 4 MG/2 ML VIAL ONE (09:22)
[2023-10-31] MEDS: Zofran 4 MG/2 ML VIAL IV ONE (09:23)
[2023-10-31] MEDS: Hydromorphone 1 mg/ml Injection IV ONE (09:23)
[2023-10-31 10:02] VITALS: PULSE 70
--- NOTE | 2023-10-31 10:34 | XRAY ---
Indication: Headache 4 days. Multiple contiguous axial images obtained to the head without contrast. Comparison: May 28, 2023 Normal appearing brain parenchyma and ventricles. Bony calvarium intact again with high left parietal craniotomy. Again mild mucosal thickening both ethmoid sinuses. Remaining paranasal sinuses and mastoid air cells are clear. Impression: Again mild paranasal sinus disease and left parietal craniotomy. Remaining CT head without contrast exam continues to be normal.
[2023-10-31] MEDS ORDERED: ROCEPHIN 1 GM / 100 ML NaCl 1 GM/100 ML IVPB IV ONE (10:48)
[2023-10-31] MEDS: ROCEPHIN 1 GM / 100 ML NaCl 1 GM/100 ML IVPB IV ONE (10:49)
[2023-10-31 11:20] VITALS: BP 120/58; O2SAT 97
== END 2023-10-31 11:25 | disposition home or self-care (01) ==
LOC: ED 07:07
DX: J32.9 Chronic sinusitis, unspecified (principal); R51.9 Headache, unspecified; D72.829 Elevated white blood cell count, unspecified; R50.9 Fever, unspecified
CPT/HCPCS: 0241U; 36000; 36415; 70450; 71045; 80053; 81001; 83605; 85025; 86308; 87040; 87651; 94760; 96360; 96365; 96374; 96375; 99284; J0696; J1170; J2405; A9270-GY

== ENCOUNTER 2024-02-22 10:56 | Emergency (ER) | payer OTHER ==
[2024-02-22 11:18] VITALS: TEMP 97.6
[2024-02-22] MEDS ORDERED: Calcium Gluconate 10% 1000 MG IV ONE ×4 (12:11→20:32)
[2024-02-22] MEDS ORDERED: Sodium Chloride 0.9% 100 ML ONE ×3 (12:11→19:30)
[2024-02-22] MEDS: Calcium Gluconate 10% 1000 MG 1,000 MG in Sodium Chloride 0.9% 100 ML IV ONE ×2 (12:13→14:27)
[2024-02-22 12:46] LABS: ALBUMIN 4.3 g/dL (3.5-5.0); ANION GAP 13.9 MEQ/L (5-15); BILIRUBIN,TOTAL 0.3 mg/dL (0.2-1.3); Calcium 6.1 mg/dL (8.4-10.2); Creatinine 1 0.7 mg/dL (0.52-1.04); EST GLOMERULAR FILTRATION RATE 103.4 ML/MIN; Potassium 3.8 mmol/L (3.5-5.1); Total Protein 7.4 g/dL (6.3-8.2)
[2024-02-22 13:53] LABS: Appearance Clear (Clear); Bacteria Rare /HPF (None Seen); Bilirubin Negative (Negative); Blood Negative (Negative); Epithelial Cells Moderate /HPF (None Seen); Glucose, Urine Negative (Negative); Hyaline Casts NONE SEEN /LPF (0-2); Ketones Negative (Negative); Leukocyte Esterase Negative (Negative); Nitrite Negative (Negative); Ph 6.5 (4.6-8.0); Protein,Urine Dip Negative (Negative); RBC 0-2 /HPF (0-5); Urobilinogen 0.2 mg/dL (0.2); WBC 0-2 /HPF (0-5)
--- NOTE | 2024-02-22 13:58 | ERPHSYRPT ---
- History of Present Illness Source: patient Exam Limitations: no limitations Patient Subjective Stated Complaint: Ptwent to [facility] yesterday and had labs done. Calcium was 6.6 yesterday. T4 was 3.05. 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 Patient denies any focal weakness, chest pain palpitations or shortness of breath. She has not doing any follow-up with endocrinology. Also reports excessive sweating. (CURT VALDES) Allergies/Adverse Reactions: nitrofurantoin [From Macrobid] Allergy (Verified 02/22/24 11:18) Hives Sulfa (Sulfonamide Antibiotics) Allergy (Verified 02/22/24 11:18) Hives shortness of breath ,diaphoretic azithromycin [From Zithromax] Adverse Reaction (Intermediate, Verified 02/22/24 11:18) Nausea and Vomiting naproxen [From Aleve] Adverse Reaction (Verified 02/22/24 11:18) Nausea Home Medications: Losartan Potassium [Cozaar] 12.5 mg PO DAILY 01/30/20 [History] Hydrocodone/Acetaminophen [Hydrocodone-Acetamin 7.5-325] 0.5 - 1 ea PO Q46H PRN 04/17/23 [History] Levothyroxine Sodium 150 Mcg [Synthroid 150 Mcg] 150 mcg PO DAILY 02/22/24 [History] Travel Risk - International Travel Have you traveled outside of the country in past 3 weeks: No - Emerging Infectious Disease Are you exhibiting symptoms associated with any current EIDs: No Symptoms: Fever, Headaches/Body Aches/ - Review of Systems Constitutional: Fatigue Eyes: No Symptoms Ears, Nose, & Throat: No Symptoms Respiratory: No Symptoms Cardiac: No Symptoms Abdominal/Gastrointestinal: No Symptoms Genitourinary Symptoms: No Symptoms Musculoskeletal: No Symptoms Skin: No Symptoms Neurological: Sensory Changes Psychological: No Symptoms Endocrine: Other Hematologic/Lymphatic: No Symptoms - Past Medical History Pertinent Past Medical History: Yes Neurological History: Epilepsy, Migraines, Other ENT History: No Pertinent History Cardiac History: Other Respiratory History: No Pertinent History, Other Endocrine Medical History: No Pertinent History, Other Musculoskeletal History: No Pertinent History, Osteoarthritis, Other GI Medical History: No Pertinent History, Gallbladder Disease, Other History: Other Psycho-Social History: No Pertinent History Female Reproductive Disorders: Endometriosis Other Medical History: Pituitary tumor, benign brain tumor (current), craniotomy for tumor on the brain (2006), hysterectomy, appendectomy, cholecystectomy, R hip nerve release (05/2016, Dr. Ricci), Lumbar Scoliosis, C5-6 Cervial disc Degeneration per 08/31/19 X-Ray, Lumbar Intervertebral disc degeneration, R hip trochanteric bursitis, Chronic Pain Syndrome, L humerus shaft fracture, Lumbar Lordosis (08/31/19 X-Ray), Meralgia paresthetica RLE, Cervicalagia, Iliotibial band syndrome, Hyperprolactinemia, Recent mass in right lung, lymph nodes and thyroid May 2022 - Past Surgical History Past Surgical History: Yes Neuro Surgical History: No Pertinent History Cardiac: No Pertinent History Respiratory: No Pertinent History Gastrointestinal: Appendectomy, Cholecystectomy Female Surgical History: Hysterectomy Other Surgical History: CRANIOTOMY--TUMOR REMOVED, thyroidectomy - Female History Hx Last Menstrual Period: post Hx Now: No - Social History Smoking Status: Former smoker How long have you smoked: 30 Exposure to second hand smoke: No Drug Use: none Patient Lives Alone: No - Social Determinants of Health Will the patient participate in the screening: Yes Do you worry about a steady place to live?: No Do you have any problems with any of the following?: No known problems In the past 12 months,have you had to go without utilities?: No Transportation Issues: No Has anyone in your support network made you feel unsafe?: No Have you or anyone in your house had to go without enough: No - Physical Exam General Appearance: no apparent distress Eye Exam: PERRL/EOMI Ears, Nose, Throat Exam: normal ENT inspection Neck Exam: normal inspection, non-tender, supple, full range of motion Respiratory Exam: normal breath sounds, lungs clear Cardiovascular Exam: regular rate/rhythm, normal heart sounds Gastrointestinal/Abdomen Exam: soft, normal bowel sounds, tenderness Back Exam: normal inspection Extremity Exam: normal inspection, normal range of motion, pelvis stable Neurologic Exam: alert, oriented x 3, cooperative, hansard reporter II-XII nml as tested, normal mood/affect, nml cerebellar function, nml station & gait, No motor deficits Skin Exam: normal color SpO2 Interpretation: normal SpO2: 97 O2 Delivery: Room Air - Nursing Vital Signs Nursing Vital Signs: Initial Vital Signs Temperature 97.6 F 02/22/24 11:03 Pulse Rate 98 H 02/22/24 11:03 Blood Pressure 160/90 02/22/24 11:03 O2 Sat by Pulse Oximetry 98 02/22/24 11:03 Pain Scale Pain Intensity 0 - Course EKG Interpreted by Me: RATE (70), Sinus Rhythm, NORMAL AXIS, NORMAL INTERVALS, NORMAL QRS Ordered Tests: Active Orders 24 hr Category Date Time Status CMP Stat Lab 02/23/24 02:17 Completed Calcium Stat Lab 02/23/24 07:35 Completed Calcium, Ionized Stat Lab 02/23/24 07:40 Completed MAGNESIUM Stat Lab 02/23/24 02:17 Completed PHOSPHOROUS Stat Lab 02/23/24 02:17 Completed Medication Summary Discontinued Medications Generic Name Dose Route Start Last Admin Trade Name Steph PRN Reason Stop Dose Admin Acetaminophen 1,000 mg 02/22/24 18:31 02/22/24 18:34 Acetaminophen 500 Mg Tablet PO 02/22/24 18:32 1,000 mg STAT STA Administration Acetaminophen Confirm 02/22/24 18:33 Acetaminophen 500 Mg Tablet Administered 02/22/24 18:34 Dose 1,000 mg .ROUTE .STK-MED ONE Calcium Gluconate Confirm 02/22/24 12:11 Calcium Gluconate 1000 Mg/10 Ml Vial Administered 02/22/24 12:12 Dose 1,000 mg IV .STK-MED ONE Calcium Gluconate Confirm 02/22/24 14:24 Calcium Gluconate 1000 Mg/10 Ml Vial Administered 02/22/24 14:25 Dose 1,000 mg IV .STK-MED ONE Calcium Gluconate Confirm 02/22/24 19:24 Calcium Gluconate 1000 Mg/10 Ml Vial Administered 02/22/24 19:25 Dose 1,000 mg IV .STK-MED ONE Calcium Gluconate Confirm 02/22/24 20:32 Calcium Gluconate 1000 Mg/10 Ml Vial Administered 02/22/24 20:33 Dose 2,000 mg IV .STK-MED ONE Calcium Gluconate 1,000 mg/ 110 mls @ 220 mls/hr 02/22/24 11:35 02/22/24 12:13 Sodium Chloride IV 02/22/24 12:04 220 mls/hr ONCE ONE Administration Sodium Chloride Confirm 02/22/24 12:11 Sodium Chloride 0.9% Administered 02/22/24 12:12 Dose 100 mls @ ud .ROUTE .STK-MED ONE Calcium Gluconate 1,000 mg/ 110 mls @ 220 mls/hr 02/22/24 13:41 02/22/24 14:27 Sodium Chloride IV 02/22/24 14:10 220 mls/hr ONCE ONE Administration Sodium Chloride Confirm 02/22/24 14:24 Sodium Chloride 0.9% Administered 02/22/24 14:25 Dose 100 mls @ ud .ROUTE .STK-MED ONE Sodium Chloride Confirm 02/22/24 19:30 Sodium Chloride 0.9% Administered 02/22/24 19:31 Dose 100 mls @ ud .ROUTE .STK-MED ONE Calcium Gluconate 1,100 mg/ 111 mls @ 220 mls/hr 02/22/24 20:29 02/22/24 21:41 Sodium Chloride IV 02/22/24 20:59 50 mls/hr ONCE ONE Administration Sodium Chloride Confirm 02/22/24 20:54 Sodium Chloride 0.9% 500 Ml Administered 02/22/24 20:55 Dose 500 mls @ ud IV .STK-MED ONE Calcium Gluconate 5,500 mg/ 555 mls @ 220 mls/hr 02/22/24 23:04 02/22/24 23:14 Sodium Chloride IV 02/23/24 01:35 50 mls/hr ONCE ONE Administration Calcium Gluconate 550 mg/ 505.5 mls @ ud 02/22/24 21:00 Sodium Chloride IV 02/22/24 21:01 .STK-MED ONE Ketorolac Tromethamine 30 mg 02/22/24 23:32 02/22/24 23:39 Ketorolac Tromethamine 30 Mg/Ml Inj IV 02/22/24 23:33 30 mg STAT ONE Administration Ketorolac Tromethamine Confirm 02/22/24 23:33 Ketorolac Tromethamine 30 Mg/Ml Inj Administered 02/22/24 23:34 Dose 30 mg .ROUTE .STK-MED ONE Levothyroxine Sodium 112 mcg 02/24/24 07:00 02/23/24 07:55 Levothyroxine Sodium 112 Mcg Tablet PO 03/25/24 06:59 112 mcg QAM@0700 [facility] Administration Lab/Rad Data: Laboratory Result Diagrams 02/23/24 02:17 Laboratory Results 02/23/24 02/23/24 02/23/24 Range/Units 07:40 07:35 02:17 Ionized Calcium 1.06 L (1.12-1.32) mmol/L Sodium 140 (135-145) mmol/L Potassium 3.9 (3.5-5.1) mmol/L Chloride 108 H (98-107) mmol/L Carbon Dioxide 23 (22-30) mmol/L Anion Gap 13.1 (5-15) MEQ/L BUN 12 (7-17) mg/dL Creatinine 0.75 (0.52-1.04) mg/dL Estimated GFR 95.1 ML/MIN Glucose 91 (74-106) mg/dL Calcium 8.5 7.5 L (8.4-10.2) mg/dL Phosphorus 6.8 H (2.5-4.5) mg/dL Magnesium 1.8 (1.6-2.3) mg/dL Total Bilirubin 0.20 (0.2-1.3) mg/dL AST 38 H (14-36) U/L ALT 43 H (0-35) U/L Alkaline Phosphatase 73 (38-126) U/L Troponin I (0.000-0.033) ng/mL Serum Total Protein 7.0 (6.3-8.2) g/dL Albumin 3.9 (3.5-5.0) g/dL PTH Intact Whole Molec (15-65) pg/mL Urine Color (Yellow) Urine Appearance (Clear) Urine pH (4.6-8.0) Ur Specific Irving (1.005-1.030) Urine Protein (Negative) Urine Glucose (UA) (Negative) mg/dL Urine Ketones (Negative) Urine Blood (Negative) Urine Nitrite (Negative) Urine Bilirubin (Negative) Urine Urobilinogen (0.2) mg/dL Ur Leukocyte Esterase (Negative) U Hyaline Cast (Auto) (0-2) /LPF Urine Microscopic RBC (0-5) /HPF Urine Microscopic WBC (0-5) /HPF Ur Epithelial Cells (None Seen) /HPF Urine Bacteria (None Seen) /HPF Urine Culture Reflexed (NO) 02/22/24 02/22/24 02/22/24 Range/Units Unknown 21:00 20:00 Ionized Calcium 0.70 L* (1.12-1.32) mmol/L Sodium (135-145) mmol/L Potassium (3.5-5.1) mmol/L Chloride (98-107) mmol/L Carbon Dioxide (22-30) mmol/L Anion Gap (5-15) MEQ/L BUN (7-17) mg/dL Creatinine (0.52-1.04) mg/dL Estimated GFR ML/MIN Glucose (74-106) mg/dL Calcium 7.2 L D (8.4-10.2) mg/dL Phosphorus (2.5-4.5) mg/dL Magnesium (1.6-2.3) mg/dL Total Bilirubin (0.2-1.3) mg/dL AST (14-36) U/L ALT (0-35) U/L Alkaline Phosphatase (38-126) U/L Troponin I (0.000-0.033) ng/mL Serum Total Protein (6.3-8.2) g/dL Albumin (3.5-5.0) g/dL PTH Intact Whole Molec 5 L (15-65) pg/mL Urine Color (Yellow) Urine Appearance (Clear) Urine pH (4.6-8.0) Ur Specific Irving (1.005-1.030) Urine Protein (Negative) Urine Glucose (UA) (Negative) mg/dL Urine Ketones (Negative) Urine Blood (Negative) Urine Nitrite (Negative) Urine Bilirubin (Negative) Urine Urobilinogen (0.2) mg/dL Ur Leukocyte Esterase (Negative) U Hyaline Cast (Auto) (0-2) /LPF Urine Microscopic RBC (0-5) /HPF Urine Microscopic WBC (0-5) /HPF Ur Epithelial Cells (None Seen) /HPF Urine Bacteria (None Seen) /HPF Urine Culture Reflexed (NO) 02/22/24 02/22/24 02/22/24 Range/Units 13:29 12:30 12:30 Ionized Calcium (1.12-1.32) mmol/L Sodium 140 (135-145) mmol/L Potassium 3.8 (3.5-5.1) mmol/L Chloride 106 (98-107) mmol/L Carbon Dioxide 23 (22-30) mmol/L Anion Gap 13.9 (5-15) MEQ/L BUN 13 (7-17) mg/dL Creatinine 0.70 (0.52-1.04) mg/dL Estimated GFR 103.4 ML/MIN Glucose 115 H (74-106) mg/dL Calcium 6.1 L (8.4-10.2) mg/dL Phosphorus (2.5-4.5) mg/dL Magnesium (1.6-2.3) mg/dL Total Bilirubin 0.30 (0.2-1.3) mg/dL AST 44 H (14-36) U/L ALT 47 H (0-35) U/L Alkaline Phosphatase 75 (38-126) U/L Troponin I < 0.012 (0.000-0.033) ng/mL Serum Total Protein 7.4 (6.3-8.2) g/dL Albumin 4.3 (3.5-5.0) g/dL PTH Intact Whole Molec (15-65) pg/mL Urine Color Yellow (Yellow) Urine Appearance Clear (Clear) Urine pH 6.5 (4.6-8.0) Ur Specific Irving 1.020 (1.005-1.030) Urine Protein Negative (Negative) Urine Glucose (UA) Negative (Negative) mg/dL Urine Ketones Negative (Negative) Urine Blood Negative (Negative) Urine Nitrite Negative (Negative) Urine Bilirubin Negative (Negative) Urine Urobilinogen 0.2 (0.2) mg/dL Ur Leukocyte Esterase Negative (Negative) U Hyaline Cast (Auto) NONE SEEN (0-2) /LPF Urine Microscopic RBC 0-2 (0-5) /HPF Urine Microscopic WBC 0-2 (0-5) /HPF Ur Epithelial Cells Moderate A (None Seen) /HPF Urine Bacteria Rare A (None Seen) /HPF Urine Culture Reflexed NO (NO) 02/22/24 02/22/24 Range/Units 12:00 11:35 Ionized Calcium 0.73 L* (1.12-1.32) mmol/L Sodium (135-145) mmol/L Potassium (3.5-5.1) mmol/L Chloride (98-107) mmol/L Carbon Dioxide (22-30) mmol/L Anion Gap (5-15) MEQ/L BUN (7-17) mg/dL Creatinine (0.52-1.04) mg/dL Estimated GFR ML/MIN Glucose (74-106) mg/dL Calcium (8.4-10.2) mg/dL Phosphorus (2.5-4.5) mg/dL Magnesium 1.6 (1.6-2.3) mg/dL Total Bilirubin (0.2-1.3) mg/dL AST (14-36) U/L ALT (0-35) U/L Alkaline Phosphatase (38-126) U/L Troponin I (0.000-0.033) ng/mL Serum Total Protein (6.3-8.2) g/dL Albumin (3.5-5.0) g/dL PTH Intact Whole Molec (15-65) pg/mL Urine Color (Yellow) Urine Appearance (Clear) Urine pH (4.6-8.0) Ur Specific Irving (1.005-1.030) Urine Protein (Negative) Urine Glucose (UA) (Negative) mg/dL Urine Ketones (Negative) Urine Blood (Negative) Urine Nitrite (Negative) Urine Bilirubin (Negative) Urine Urobilinogen (0.2) mg/dL Ur Leukocyte Esterase (Negative) U Hyaline Cast (Auto) (0-2) /LPF Urine Microscopic RBC (0-5) /HPF Urine Microscopic WBC (0-5) /HPF Ur Epithelial Cells (None Seen) /HPF Urine Bacteria (None Seen) /HPF Urine Culture Reflexed (NO) - Progress Progress: improved Discussed with : Other (Dr. Vogel hospitalist) Counseled pt/family regarding: lab results, diagnosis, rad results - Progress Progress Note: 02/22/24 13:54 53 years old with recent thyroidectomy with accidental to parathyroid gland removal not taking any oral potassium replacement with having numbness or tingling sensations with outpatient workup showing calcium of 6.6. Patient denies any focal weakness but generalized. EKG is sinus rhythm with no acute ST elevations. I have repeated chemistries with a calcium of 6.1, given 2 g calcium gluconate and has improvement symptomatically. Discussed with Dr. Vogel, recommended transfer to facility with endocrinology services. I have shared the results of workup with patient and plan of transfer which she understands and agrees. Will call [facility] 02/22/24 16:[address] Michelle who has discussed with his endocrinology and patient is excepted for transfer to hospitalist service in [facility]. 02/22/24 18:35 Although patient is excepted for transfer but no beds are available. I would start her on calcium gluconate drip 11 g of calcium gluconate and 1 L at a rate of 50 mL/h and will recheck potassium every 4 hourly. 02/23/24 11:18 Patient was continued to have IV calcium per protocol. Her calcium is improved but the last check was 8.5 which is in the lower end of normal. Patient is feeling better. Patient later on realized that she has seen Dr. Jones in the past and she called his office. His office asked for the paperwork which was faxed over there. And we have confirmed with endocrinology office that patient does have appointment today at 2:30 PM. I think it is reasonable. She is being discharged with her . Still no bed available at [facility]. Discussed signs symptoms of worsening needing return to ER which she seems understanding. Stable for discharge. (CURT VALDES) Medical Desision Making - Independent Historian Additional History obtained from: Spouse - Discussion of managment Care discussed with:: hospitalist (Dr. Michelle and Dr. Vogel) Reviewed:: Test results Agreed on:: Treatment plan, place in obs Will see patient: in hospital - Diagnostic Testing Diagnostic test were ordered, analyzed, and reviewed by me: Yes - Risk of complications The pt has a high risk of morbidity or mortality based on: Decision regarding hospitilization or escalation of hosp level of care - Departure Departure Disposition: Home Critical Care Time: No - Departure Clinical Impression: Hypocalcemia Condition: Stable Referrals: PILY SWAN MD [Primary Care Provider] - Follow up/PCP as directed LIZ JONES [NON-STAFF PHY W/O PRIVILEGES] - Follow up/PCP as directed (2:30 PM today as scheduled) Instructions: Hypocalcemia (DC) Additional Instructions: Follow up with Dr. Jones at 2:30 as scheduled. Return if feeling numbness, tingling or confusion.
[2024-02-22] MEDS ORDERED: TYLENOL EXTRA STRENGTH 500 MG ONE (18:33)
[2024-02-22] MEDS: TYLENOL EXTRA STRENGTH 500 MG PO STA (18:34)
[2024-02-22] MEDS ORDERED: Sodium Chloride 0.9% 500 ML 500 ML IV ONE (20:54)
[2024-02-22] MEDS ORDERED: CALCIUM GLUCONATE IV ONE (21:00)
[2024-02-22] MEDS ORDERED: SODIUM CHLORIDE 0.9% IV ONE (21:00)
[2024-02-22] MEDS: SODIUM CHLORIDE 0.9% IV ONE ×2 (21:41→23:14)
[2024-02-22] MEDS: CALCIUM GLUCONATE IV ONE ×2 (21:41→23:14)
[2024-02-22] MEDS ORDERED: TORAdol 30 mg Injection ONE (23:33)
[2024-02-22] MEDS: TORAdol 30 mg Injection IV ONE (23:39)
[2024-02-23 02:28] LABS: ALBUMIN 3.9 g/dL (3.5-5.0); ANION GAP 13.1 MEQ/L (5-15); BILIRUBIN,TOTAL 0.2 mg/dL (0.2-1.3); Calcium 7.5 mg/dL (8.4-10.2); Creatinine 1 0.75 mg/dL (0.52-1.04); EST GLOMERULAR FILTRATION RATE 95.1 ML/MIN; MAGNESIUM 1.8 mg/dL (1.6-2.3); PHOSPHOROUS 6.8 mg/dL (2.5-4.5); Potassium 3.9 mmol/L (3.5-5.1)
[2024-02-23] MEDS: SYNTHROID 112 MCG PO SCH (07:55)
[2024-02-23 09:04] VITALS: PULSE 70; RESP 18
[2024-02-23 10:55] VITALS: BP 109/78
[2024-02-23 11:48] VITALS: O2SAT 97
== END 2024-02-23 11:33 | disposition home or self-care (01) ==
LOC: ED 10:56
DX: E83.51 Hypocalcemia (principal)
CPT/HCPCS: 36415; 80053; 81001; 82310; 82330; 83735; 83970; 84100; 84484; 93005; 96374; 96375; 96376; 99284; 99285; J0612; J1885; A9270-GY

== ENCOUNTER 2024-07-05 14:50 | Emergency (ER) | payer OTHER ==
[2024-07-05 15:05] VITALS: TEMP 96.7
[2024-07-05 15:40] LABS: Absolute Neutrophil Ct (ANC) 6.44 x10^3/uL (1.56-6.13); Basophil (Absolute #) 0.11 x10^3/uL (0.01-0.08); Eosinophil % 3.6 % (0.7-5.8); Eosinophil (Absolute #) 0.39 x10^3/uL (0.04-0.36); Hematocrit 42.8 % (34.1-44.9); Hemoglobin 14.4 g/dL (11.2-15.7); IMMATURE GRAN # 0.04 x10^3u/L (0.001-0.031); IMMATURE GRAN % 0.4 % (0.001-0.429); Lymphocyte (Absolute #) 3.05 x10^3/uL (1.18-3.74); Lymphocytes % 28.5 % (19.3-51.7); Mean Cell Volume 83.8 fL (79.4-94.8); Mean Corpuscular Hemoglobin 28.2 pg (25.6-32.2); Mean Corpuscular Hgb Concent. 33.6 g/dL (32.2-35.5); Monocyte (Absolute #) 0.69 x10^3/uL (0.24-0.86); Monocytes % 6.4 % (4.7-12.5); Neutrophil % 60.1 % (34.0-71.1); Platelet Count 400 x10^3/uL (182-369); Red Blood Count 5.11 x10^6/uL (3.93-5.22); Red Cell Distribution Width 14.4 % (11.7-14.4); White Blood Count 10.7 x10^3/uL (3.98-10.04)
[2024-07-05] MEDS ORDERED: Sodium Chloride 0.9% 1000 ML 1,000 ML ONE (15:44)
[2024-07-05] MEDS ORDERED: Zofran 4 MG/2 ML VIAL ONE (15:44)
[2024-07-05] MEDS ORDERED: MORPHINE SULFATE 4 MG INJ ONE (15:44)
[2024-07-05] MEDS: Zofran 4 MG/2 ML VIAL IV ONE (15:46)
[2024-07-05] MEDS: MORPHINE SULFATE 4 MG INJ IV ONE (15:46)
[2024-07-05] MEDS: Sodium Chloride 0.9% 1000 ML 1,000 ML IV SCH (15:46)
[2024-07-05 15:47] LABS: Appearance Clear (Clear); Bacteria None Seen /HPF (None Seen); Bilirubin Negative (Negative); Blood Negative (Negative); Epithelial Cells None Seen /HPF (None Seen); Glucose, Urine Negative (Negative); Hyaline Casts NONE SEEN /LPF (0-2); Ketones Negative (Negative); Leukocyte Esterase Negative (Negative); Nitrite Negative (Negative); Protein,Urine Dip Negative (Negative); RBC 0-2 /HPF (0-5); Specific Gravity <=1.005 (1.005-1.030); Urobilinogen 0.2 mg/dL (0.2); WBC 0-2 /HPF (0-5)
[2024-07-05 15:57] LABS: ALBUMIN 4.5 g/dL (3.5-5.0); ANION GAP 15.4 MEQ/L (5-15); BILIRUBIN,TOTAL 0.3 mg/dL (0.2-1.3); Calcium 8.4 mg/dL (8.4-10.2); Creatinine 1 0.82 mg/dL (0.52-1.04); EST GLOMERULAR FILTRATION RATE 85.5 ML/MIN; Potassium 3.7 mmol/L (3.5-5.1); Total Protein 7.2 g/dL (6.3-8.2)
--- NOTE | 2024-07-05 16:57 | XRAY ---
Indication: Abdomen pain. Comparison: October 31, 2023 Portable chest demonstrates grossly stable CT proven indeterminate right lower lobe noncalcified nodules. Remaining heart, lungs, and bony thorax normal. No new/acute findings.
--- NOTE | 2024-07-05 17:13 | XRAY ---
Indication: Pain 1 week. Multiple contiguous axial images obtained through the abdomen and pelvis without contrast. Comparison: October 10, 2023 Lung bases demonstrates grossly stable peripheral right lower lobe cluster calcified and noncalcified nodules, probably granulomas. Largest measures 1.5 cm. No infiltrate or effusion. Heart not enlarged. Noncontrasted stomach and bowel loops appear nonobstructed. Liver again demonstrates geographic hypoattenuations, probable hepatic steatosis. Again right renal scarring, appendectomy, cholecystectomy, and hysterectomy. No free fluid/air. Remaining liver, pancreas, spleen, degenerative glands, kidneys, ureters, and bladder are unremarkable for noncontrast exam. Again mild scattered aortoiliac calcification without AAA. Osseous structures intact. No ventral or inguinal hernias. Impression: Stable CT abdomen/pelvis without contrast exam. Again chronic findings including right lower lobe calcified/noncalcified granulomatous nodules, probable hepatic steatosis, right renal scarring, and arteriosclerotic disease. No new/acute findings on this noncontrast exam.
[2024-07-05 17:28] VITALS: O2SAT 96
--- NOTE | 2024-07-05 17:58 | ERPHSYRPT ---
- History of Present Illness Time Seen by Provider: 07/05/24 14:54 Historian: patient, family Exam Limitations: no limitations Patient Subjective Stated Complaint: PT states "For the past week I have had pain in my chest and through to my back. It hurts to move it hurts to breath it hurts to sit." Triage Nursing Assessment: Pt presented alert and oriented X3, skin pwd. Pt ambulates with an upright steady gait, able to speak in clear full sentences.pt resting comfortably on the bed. 12 lead was delayed due to pt initial complaint of rib pain. Physician History: 53-year-old female with history of hypothyroidism, hypoparathyroidism with hypocalcemia needing infusions presented to the ER with 1 week history of bilateral lower rib cage/upper abdominal pain with associated nausea. Patient reports it hurts to take a deep breath in the upper abdomen. She thinks it is her both kidneys and also reports having increased urinary frequency but no urgency or hesitancy. No fever or chills reported. Denies any diarrhea or constipation. Has no history of coronary artery disease/PE/DVT. Pain is moderate to severe sharp shooting across mid back/lower rib cage and upper abdomen. Has history of appendectomy/cholecystectomy and hysterectomy Allergies/Adverse Reactions: nitrofurantoin [From Macrobid] Allergy (Verified 02/22/24 11:18) Hives Sulfa (Sulfonamide Antibiotics) Allergy (Verified 02/22/24 11:18) Hives shortness of breath ,diaphoretic azithromycin [From Zithromax] Adverse Reaction (Intermediate, Verified 02/22/24 11:18) Nausea and Vomiting naproxen [From Aleve] Adverse Reaction (Verified 02/22/24 11:18) Nausea Home Medications: Levothyroxine Sodium 150 Mcg [Synthroid 150 Mcg] 112 mcg PO DAILY 02/22/24 [History] Hx Tetanus, Diphtheria Vaccination/Date Given: No Hx Influenza Vaccination/Date Given: No Hx Pneumococcal Vaccination/Date Given: No Immunizations Up to Date: No Travel Risk - International Travel Have you traveled outside of the country in past 3 weeks: No (N) If Yes, where;: N - Emerging Infectious Disease Are you exhibiting symptoms associated with any current EIDs: No Symptoms: Fever, Headaches/Body Aches/ - Review of Systems Constitutional: No Symptoms Ears, Nose, & Throat: No Symptoms Respiratory: No Symptoms Cardiac: Chest Pain Abdominal/Gastrointestinal: Abdominal Pain, Nausea Musculoskeletal: Back Pain Skin: No Symptoms, Skin Lesions Endocrine: No Symptoms Hematologic/Lymphatic: No Symptoms Immunological/Allergic: No Symptoms - Past Medical History Pertinent Past Medical History: Yes Neurological History: Epilepsy, Migraines, Other ENT History: No Pertinent History Cardiac History: Other Respiratory History: No Pertinent History, Other Endocrine Medical History: No Pertinent History, Other Musculoskeletal History: No Pertinent History, Osteoarthritis, Other GI Medical History: No Pertinent History, Gallbladder Disease, Other History: Other Psycho-Social History: No Pertinent History Female Reproductive Disorders: Endometriosis Other Medical History: Pituitary tumor, benign brain tumor (current), craniotomy for tumor on the brain (2006), hysterectomy, appendectomy, cholecystectomy, R hip nerve release (05/2016, Dr. Ricci), Lumbar Scoliosis, C5-6 Cervial disc Degeneration per 08/31/19 X-Ray, Lumbar Intervertebral disc degeneration, R hip trochanteric bursitis, Chronic Pain Syndrome, L humerus shaft fracture, Lumbar Lordosis (08/31/19 X-Ray), Meralgia paresthetica RLE, Cervicalagia, Iliotibial band syndrome, Hyperprolactinemia, Recent mass in right lung, lymph nodes and thyroid May 2022 - Past Surgical History Past Surgical History: Yes Neuro Surgical History: No Pertinent History Cardiac: No Pertinent History Respiratory: No Pertinent History Gastrointestinal: Appendectomy, Cholecystectomy Female Surgical History: Hysterectomy Other Surgical History: CRANIOTOMY--TUMOR REMOVED, thyroidectomy - Female History Hx Last Menstrual Period: 23 years ago Hx Now: No - Social History Smoking Status: Former smoker How long have you smoked: 30 Exposure to second hand smoke: No Drug Use: none - Social Determinants of Health Will the patient participate in the screening: Yes Do you worry about a steady place to live?: No Do you have any problems with any of the following?: No known problems In the past 12 months,have you had to go without utilities?: No Transportation Issues: No Has anyone in your support network made you feel unsafe?: No Have you or anyone in your house had to go w/o enough food: No - Nursing Vital Signs Nursing Vital Signs: Initial Vital Signs Temperature 96.7 F 07/05/24 14:58 Pulse Rate 70 07/05/24 14:58 Respiratory Rate 20 07/05/24 14:58 Blood Pressure 142/77 07/05/24 14:58 O2 Sat by Pulse Oximetry 99 07/05/24 14:58 Pain Scale Pain Intensity 0 - Physical Exam General Appearance: no apparent distress Ears, Nose, Throat Exam: normal ENT inspection Neck Exam: normal inspection, supple, full range of motion Respiratory Exam: normal breath sounds, lungs clear Cardiovascular Exam: regular rate/rhythm, normal heart sounds Gastrointestinal/Abdomen Exam: soft, normal bowel sounds, tenderness (Upper abdomen diffusely) Back Exam: normal inspection, normal range of motion Extremity Exam: normal inspection, normal range of motion Neurologic Exam: alert, oriented x 3, cooperative SpO2 Interpretation: normal SpO2: 96 O2 Delivery: Room Air - Course EKG Interpreted by Me: RATE ([id number]), Sinus Rhythm, NORMAL AXIS, NORMAL INTERVALS, NORMAL QRS Ordered Tests: Active Orders 24 hr Category Date Time Status EKG-ER Only STAT Care 07/05/24 15:26 Completed IV Insertion STAT Care 07/05/24 15:26 Completed NPO (ED) STAT Care 07/05/24 15:26 Completed ABDOMEN AND PELVIS W/0 CONTRAS [CT] Stat Exams 07/05/24 16:19 Completed CHEST 1 VIEW (PORTABLE) Stat Exams 07/05/24 16:19 Completed CBC W DIFF Stat Lab 07/05/24 15:35 Completed CMP Stat Lab 07/05/24 15:35 Completed D-DIMER QUANTITATIVE Stat Lab 07/05/24 15:35 Completed LIPASE Stat Lab 07/05/24 15:35 Completed MAGNESIUM Stat Lab 07/05/24 15:35 Completed TROPONIN Q4H Lab 07/05/24 15:35 Completed UA W/RFX UR CULTURE Stat Lab 07/05/24 15:39 Completed Medication Summary Discontinued Medications Generic Name Dose Route Start Last Admin Trade Name Freq PRN Reason Stop Dose Admin Sodium Chloride 1,000 mls @ 100 mls/hr 07/05/24 15:30 07/05/24 18:13 Sodium Chloride 0.9% 1000 Ml IV 08/04/24 15:29 Infused .Q10H CODY Infusion Sodium Chloride Confirm 07/05/24 15:44 Sodium Chloride 0.9% 1000 Ml Administered 07/05/24 15:45 Dose 1,000 mls @ ud .ROUTE .STK-MED ONE Morphine Sulfate 4 mg 07/05/24 15:26 07/05/24 15:46 Morphine Sulfate 4 Mg/Ml Injection IV 07/05/24 15:27 4 mg STAT ONE Administration Morphine Sulfate Confirm 07/05/24 15:44 Morphine Sulfate 4 Mg/Ml Injection Administered 07/05/24 15:45 Dose 4 mg .ROUTE .STK-MED ONE Ondansetron HCl 4 mg 07/05/24 15:26 07/05/24 15:46 Ondansetron Hcl 4 Mg/2 Ml Vial IV 07/05/24 15:27 4 mg STAT ONE Administration Ondansetron HCl Confirm 07/05/24 15:44 Ondansetron Hcl 4 Mg/2 Ml Vial Administered 07/05/24 15:45 Dose 4 mg .ROUTE .STK-MED ONE Lab/Rad Data: Laboratory Result Diagrams 07/05/24 15:35 07/05/24 15:35 Laboratory Results 07/05/24 07/05/24 07/05/24 Range/Units 15:39 15:35 15:35 WBC (3.98-10.04) x10^3/uL RBC (3.93-5.22) x10^6/uL Hgb (11.2-15.7) g/dL Hct (34.1-44.9) % MCV (79.4-94.8) fL MCH (25.6-32.2) pg MCHC (32.2-35.5) g/dL RDW (11.7-14.4) % Plt Count (182-369) x10^3/uL MPV (9.4-12.3) fL Gran % (34.0-71.1) % Immature Gran % (Auto) (0.001-0.429) % Nucleat RBC Rel Count (0.00-0.2) % Eos # (Auto) (0.04-0.36) x10^3/uL Immature Gran # (Auto) (0.001-0.031) x10^3u/L Absolute Lymphs (auto) (1.18-3.74) x10^3/uL Absolute Monos (auto) (0.24-0.86) x10^3/uL Absolute Nucleated RBC (0.00-0.012) x10^3u/L Lymphocytes % (19.3-51.7) % Monocytes % (4.7-12.5) % Eosinophils % (0.7-5.8) % Basophils % (0.1-1.2) % Absolute Granulocytes (1.56-6.13) x10^3/uL Basophils # (0.01-0.08) x10^3/uL D-Dimer 0.37 (0.0-0.50) mg/L Sodium (135-145) mmol/L Potassium (3.5-5.1) mmol/L Chloride (98-107) mmol/L Carbon Dioxide (22-30) mmol/L Anion Gap (5-15) MEQ/L BUN (7-17) mg/dL Creatinine (0.52-1.04) mg/dL Estimated GFR ML/MIN Glucose (74-106) mg/dL Calcium (8.4-10.2) mg/dL Magnesium (1.6-2.3) mg/dL Total Bilirubin (0.2-1.3) mg/dL AST (14-36) U/L ALT (0-35) U/L Alkaline Phosphatase (38-126) U/L Troponin I < 0.012 (0.000-0.033) ng/mL Serum Total Protein (6.3-8.2) g/dL Albumin (3.5-5.0) g/dL Lipase (23-300) U/L Urine Color Yellow (Yellow) Urine Appearance Clear (Clear) Urine pH 7.0 (4.6-8.0) Ur Specific [place] <=1.005 (1.005-1.030) Urine Protein Negative (Negative) Urine Glucose (UA) Negative (Negative) mg/dL Urine Ketones Negative (Negative) Urine Blood Negative (Negative) Urine Nitrite Negative (Negative) Urine Bilirubin Negative (Negative) Urine Urobilinogen 0.2 (0.2) mg/dL Ur Leukocyte Esterase Negative (Negative) U Hyaline Cast (Auto) NONE SEEN (0-2) /LPF Urine Microscopic RBC 0-2 (0-5) /HPF Urine Microscopic WBC 0-2 (0-5) /HPF Ur Epithelial Cells None Seen (None Seen) /HPF Urine Bacteria None Seen (None Seen) /HPF Urine Culture Reflexed NO (NO) 07/05/24 07/05/24 Range/Units 15:35 15:35 WBC 10.7 H (3.98-10.04) x10^3/uL RBC 5.11 (3.93-5.22) x10^6/uL Hgb 14.4 (11.2-15.7) g/dL Hct 42.8 (34.1-44.9) % MCV 83.8 (79.4-94.8) fL MCH 28.2 (25.6-32.2) pg MCHC 33.6 (32.2-35.5) g/dL RDW 14.4 (11.7-14.4) % Plt Count 400 H (182-369) x10^3/uL MPV 10.0 (9.4-12.3) fL Gran % 60.1 (34.0-71.1) % Immature Gran % (Auto) 0.4 (0.001-0.429) % Nucleat RBC Rel Count 0.0 (0.00-0.2) % Eos # (Auto) 0.39 H (0.04-0.36) x10^3/uL Immature Gran # (Auto) 0.04 H (0.001-0.031) x10^3u/L Absolute Lymphs (auto) 3.05 (1.18-3.74) x10^3/uL Absolute Monos (auto) 0.69 (0.24-0.86) x10^3/uL Absolute Nucleated RBC 0.00 (0.00-0.012) x10^3u/L Lymphocytes % 28.5 (19.3-51.7) % Monocytes % 6.4 (4.7-12.5) % Eosinophils % 3.6 (0.7-5.8) % Basophils % 1.0 (0.1-1.2) % Absolute Granulocytes 6.44 H (1.56-6.13) x10^3/uL Basophils # 0.11 H (0.01-0.08) x10^3/uL D-Dimer (0.0-0.50) mg/L Sodium 140 (135-145) mmol/L Potassium 3.7 (3.5-5.1) mmol/L Chloride 101 (98-107) mmol/L Carbon Dioxide 27 (22-30) mmol/L Anion Gap 15.4 H (5-15) MEQ/L BUN 18 H (7-17) mg/dL Creatinine 0.82 (0.52-1.04) mg/dL Estimated GFR 85.5 ML/MIN Glucose 118 H (74-106) mg/dL Calcium 8.4 (8.4-10.2) mg/dL Magnesium 2.0 (1.6-2.3) mg/dL Total Bilirubin 0.30 (0.2-1.3) mg/dL AST 31 (14-36) U/L ALT 31 (0-35) U/L Alkaline Phosphatase 78 (38-126) U/L Troponin I (0.000-0.033) ng/mL Serum Total Protein 7.2 (6.3-8.2) g/dL Albumin 4.5 (3.5-5.0) g/dL Lipase 27 (23-300) U/L Urine Color (Yellow) Urine Appearance (Clear) Urine pH (4.6-8.0) Ur Specific [place] (1.005-1.030) Urine Protein (Negative) Urine Glucose (UA) (Negative) mg/dL Urine Ketones (Negative) Urine Blood (Negative) Urine Nitrite (Negative) Urine Bilirubin (Negative) Urine Urobilinogen (0.2) mg/dL Ur Leukocyte Esterase (Negative) U Hyaline Cast (Auto) (0-2) /LPF Urine Microscopic RBC (0-5) /HPF Urine Microscopic WBC (0-5) /HPF Ur Epithelial Cells (None Seen) /HPF Urine Bacteria (None Seen) /HPF Urine Culture Reflexed (NO) - Progress Progress: improved, re-examined Progress Note: 07/05/24 17:55 53-year-old female with history of hypothyroidism, hypoparathyroidism is evaluated in the ER for bilateral lower rib cage/upper abdominal pain for 1 week with nausea. Patient reports she was having dry heaving almost a week ago and then started to have this pain. Pain is reproducible with movements and palpation. EKG is normal sinus rhythm with no acute ischemic changes, Lungs clear to auscultation, has tenderness in the upper abdomen diffusely and bilateral CVA tenderness. Has white count of 10, chemistries fairly unremarkable with normal calcium She is given symptomatic treatment, feeling much better on reevaluation. Obtain CT abdomen pelvis without contrast which showed stable findings in the lung from previous calcifications, hepatic steatosis but no acute intra- abdominal pelvic findings. She has no UTI. Her pain could be secondary to repeated dry heaving causing some muscle spasms in the both rib cage area versus pain in the upper abdomen from previous surgeries but have no acute emergent condition. Recommended taking [place] for pain which she has at home and outpatient follow- up. Discussed signs symptoms of worsening return to ER which she seems understanding. Stable for discharge. Complexity of problem breast: Moderate acute Complexity of data reviewed/analyzed: Moderate to extensive Risk of complication low risk Counseled pt/family regarding: lab results, diagnosis, need for follow-up, rad results Medical Desision Making - Independent Historian Additional History obtained from: Spouse - Diagnostic Testing Diagnostic test were ordered, analyzed, and reviewed by me: Yes Radiological Interpretation: Reviewed by me - Risk of complications The pt has a mod risk of morbidity or mortality based on: Need for prescription drug management - Departure Departure Disposition: Home Clinical Impression: Acute bilateral upper abdominal pain Condition: Stable Critical Care Time: No Referrals: PILY SWAN MD [Primary Care Provider, INTERNAL MEDICINE] - Follow up with PCP 1 day Instructions: Pleuritic Chest Pain ED, Abdominal pain in adults - Discharge instructions, Chest pain in adults - ED discharge instructions Additional Instructions: Take pain medications as needed. Follow-up with primary care for reevaluation. Return to ER for intractable pain or if having difficulty breathing, intractable vomiting/fever chills etc.
[2024-07-05 18:11] VITALS: BP 136/57; PULSE 64; RESP 16
== END 2024-07-05 18:03 | disposition home or self-care (01) ==
LOC: ED 14:50
DX: R10.11 Right upper quadrant pain (principal); R10.12 Left upper quadrant pain; R07.81 Pleurodynia; R11.0 Nausea; Z79.899 Other long term (current) drug therapy
CPT/HCPCS: 36415; 71045; 74176; 80053; 81001; 83690; 83735; 84484; 85025; 85379; 93005; 96361; 96374; 96375; 99284; 99285; J2270; J2405